=== PATIENT | male | born 1975 | race Caucasian/White ===

== ENCOUNTER 2019-07-10 18:21 | Inpatient (IN) | payer OTHER ==
[~2019-07-10] VITALS: Ht 185.4 cm; Wt 143.0 kg
[2019-07-10 19:52] LABS: BASOPHILS ABSOLUTE AUTO 0.04 K/mm3 (0.00-0.23); BASOPHILS PERCENT AUTO 0 % (0-2); EOSINOPHILS ABSOLUTE AUTO 0.01 K/mm3 (0.00-0.68); EOSINOPHILS PERCENT AUTO 0 % (0-6); Hematocrit 34.6 % (37.0-53.0); IMMATURE GRAN PERCENT AUTO 1 % (0-1); LYMPHOCYTES ABSOLUTE AUTO 0.22 K/mm3 (0.84-5.20); LYMPHOCYTES PERCENT AUTO 2 % (21-46); MONOCYTES ABSOLUTE AUTO 0.92 K/mm3 (0.16-1.47); MONOCYTES PERCENT AUTO 7 % (4-13); Mean Corpuscular HGB 35.5 pg (26.0-34.0); Mean Corpuscular HGB Conc 34.7 g/dL (31.5-36.5); Mean Corpuscular Volume 102 fL (80-100); NEUTROPHILS ABSOLUTE AUTO 11.38 K/mm3 (1.96-9.15); NEUTROPHILS PERCENT AUTO 90 % (41-73); NRBC ABSOLUTE 0.02 K/mm3 (0.00-0.02); NRBC Auto 0.2 /100 WBC (0.0-0.2); RDW Coefficient Variation 18.8 % (11.7-14.2); RDW Standard Deviation 70.6 fL (35.1-46.3); Red Blood Cell Count 3.38 M/mm3 (4.30-5.90); White Blood Cell Count 12.67 K/mm3 (4.00-11.30)
[2019-07-10 20:07] LABS: Mean Platelet Volume 12.1 fL (9.1-12.4); Platelet Count 81 K/mm3 (150-400)
[2019-07-10 20:20] LABS: Alanine Aminotransfer (ALT/SGP 57 U/L (12-78); Albumin, Blood 2.4 g/dL (3.4-5.0); Albumin/Globulin Ratio 0.5 (0.8-1.8); Alk Phos 151 U/L (50-136); Anion Gap 7 mmol/L (6-16); Aspartate Aminotrans (AST/SGOT 143 U/L (12-37); Blood Urea Nitrogen 16 mg/dL (8-24); Bun/Creatinine Ratio 25.3 (12.0-20.0); CO2, Blood 24 mmol/L (21-32); Calcium, Blood 8.1 mg/dL (8.5-10.1); Chloride, Blood 93 mmol/L (98-108); Creatinine, Blood 0.63 mg/dL (0.60-1.20); Globulin, Blood 4.4 g/dL (2.2-4.0); Glomerular Filtration Rate >60 (60-); Glucose, Blood 116 mg/dL (70-99); Potassium, Blood 4.4 mmol/L (3.5-5.5); Sodium, Blood 124 mmol/L (136-145); Total Protein, Blood 6.8 g/dL (6.4-8.2); Troponin I <0.015 ng/mL (0.000-0.040)
[2019-07-10 20:26] LABS: Source, Urine Voided
[2019-07-10 20:29] LABS: International Normalized Ratio 2.11; Prothrombin Time Results 20.9 Sec (9.7-11.5)
[2019-07-10 20:39] LABS: Appearance, Urine Cloudy (Clear); Blood, Urine 4+ (Neg); Glucose Qualitative, Urine Neg (Neg); Ketones, Urine 1+ (Neg); Leukocyte Esterase, Urine Neg (Neg); Nitrite, Urine Neg (Neg); Protein, Urine 3+ (Neg); Urobilinogen, Urine 4+ (Normal)
[2019-07-10 20:53] LABS: Bilirubin, Urine 3+ (Neg); Color, Urine Brown (P-Yellow)
[2019-07-10 20:57] LABS: U Amphetamine Screen Not Detected; U Barbituate Screen Not Detected; U Benzodiazapine Screen Not Detected; U Buprenorphine Screen Not Detected; U Cannabinoids Screen Not Detected; U Cocaine Screen Not Detected; U Methadone Screen Not Detected; U Methamphetamine Screen DETECTED; U Opiates Screen Not Detected; U Oxycodone Screen Not Detected; U Phencyclidine Screen Not Detected; U Propoxyphene Screen Not Detected
[2019-07-10 20:58] LABS: Bacteria Mod /hpf; Red Blood Cells, Urine 0-2 /hpf (0-2); Squamous Epithelial Cells Few /hpf (Few); White Blood Cells, Urine 0-2 /hpf (0-5)
[2019-07-10 21:01] LABS: Transitional Epithelial Cells Mod /hpf (0-Rare)
[2019-07-10] MEDS ORDERED: ALLEGRA ALLERG180 MG PO (21:47)
[2019-07-10] MEDS ORDERED: OMEPRAZOLE20 MG PO (21:47)
--- NOTE | 2019-07-11 04:00 | NUR ---
MANJU OF ADMIT.JOHN FROM ED . TACHEPN[facility] A FEW STEPS TO BED AND 32 RR. SAT WNL AND LEFT AT 3L . NC. GUARDED DEEPER BREATHS DUE TO ADDED PAIN AT RT RIB AREA AND CHEST S/P FALL AT HOME. PHOTOS TAKEN OF BRUISES. GRUNTING SOUNDS W/ CERTAIN MOVEMENTS. DENIES NAUSEA BUT MOIST COUGHING BRINGS UP THICK SPUTUM AND SOME GAGGING SOUNDS TO EXPECTORATE. SIPS OF H2O AND TOLERATED. REPORTS BEING HUNGRY. SEE WITHDRAWAL ASSESS AND SEE PHOTOS FOR SKIN CONDITION.REPORT TO ERA GALLOWAY AND FURTHER ASSESS FOR PAIN NEEDS.
[2019-07-11 04:56] LABS: BASOPHILS ABSOLUTE AUTO 0.02 K/mm3 (0.00-0.23); BASOPHILS PERCENT AUTO 0 % (0-2); EOSINOPHILS ABSOLUTE AUTO 0.01 K/mm3 (0.00-0.68); EOSINOPHILS PERCENT AUTO 0 % (0-6); Hematocrit 30.2 % (37.0-53.0); Hemoglobin 10.7 g/dL (13.5-17.5); IMMATURE GRAN ABSOLUTE AUTO 0.12 K/mm3 (0.00-0.10); IMMATURE GRAN PERCENT AUTO 1 % (0-1); LYMPHOCYTES ABSOLUTE AUTO 0.22 K/mm3 (0.84-5.20); LYMPHOCYTES PERCENT AUTO 2 % (21-46); MONOCYTES PERCENT AUTO 9 % (4-13); Mean Corpuscular HGB 35.8 pg (26.0-34.0); Mean Corpuscular HGB Conc 35.4 g/dL (31.5-36.5); Mean Corpuscular Volume 101 fL (80-100); NEUTROPHILS ABSOLUTE AUTO 10.79 K/mm3 (1.96-9.15); NEUTROPHILS PERCENT AUTO 88 % (41-73); Platelet Count 78 K/mm3 (150-400); RDW Coefficient Variation 19.1 % (11.7-14.2); RDW Standard Deviation 70.7 fL (35.1-46.3); Red Blood Cell Count 2.99 M/mm3 (4.30-5.90); White Blood Cell Count 12.26 K/mm3 (4.00-11.30)
[2019-07-11 05:07] LABS: International Normalized Ratio 2.19; Prothrombin Time Results 21.6 Sec (9.7-11.5)
[2019-07-11 05:42] LABS: Alanine Aminotransfer (ALT/SGP 50 U/L (12-78); Albumin, Blood 2.3 g/dL (3.4-5.0); Albumin/Globulin Ratio 0.6 (0.8-1.8); Alk Phos 130 U/L (50-136); Anion Gap 10 mmol/L (6-16); Aspartate Aminotrans (AST/SGOT 113 U/L (12-37); Bilirubin, Total 33.5 mg/dL (0.1-1.0); Blood Urea Nitrogen 18 mg/dL (8-24); Bun/Creatinine Ratio 30.5 (12.0-20.0); CO2, Blood 23 mmol/L (21-32); Calcium, Blood 7.9 mg/dL (8.5-10.1); Chloride, Blood 94 mmol/L (98-108); Creatinine, Blood 0.59 mg/dL (0.60-1.20); Globulin, Blood 3.8 g/dL (2.2-4.0); Glomerular Filtration Rate >60 (60-); Glucose, Blood 105 mg/dL (70-99); Potassium, Blood 4.1 mmol/L (3.5-5.5); Sodium, Blood 127 mmol/L (136-145); Total Protein, Blood 6.1 g/dL (6.4-8.2)
--- NOTE | 2019-07-11 08:44 | NUR ---
ASSUMED CARE ASSUMED CARE OF PT APPROX. 0330. PT A&OX4. PT VITAL SIGNS STABLE. ASSESSMENT COMPLETED. PT HAS BRUISING ON ARMS, LEGS AND SIDES. HE REPROTS THIS TO BE FROM A FALL. PT ABDOMEN DISTENTED AND FIRM. SKIN JAUNDICE T/O BODY. BEGAN MONITORING VITAL SIGNS AND CIWA PER ORDERS. CIWA RANGING FROM 2-7. WILL CONTINUE TO MONITOR. PT CONTINUES TO BE TACHYPNEANIC BUT IMPROVED SINCE ARRIVAL PT REPORT OF PREVIOUS NURSE. BED IN LOW POSOTION, BED ALARM ON, CALL LIGHT IN REACH AND PT DENIES ANY NEEDS.
--- NOTE | 2019-07-11 12:42 | NUR ---
NEW 18G TO LEFT WRIST STARTED FOR PRIMARY RN. IV FLUSHES. IVF NOW INFUSING TO THIS IV. 20G TO RIGHT AC FLUSHED AND CLAMPED. PT EXPRESSES NO NEEDS/CONCERNS. CALL LIGHT IN REACH. PRIMARY RN AWARE.
--- NOTE | 2019-07-11 15:39 | NUR ---
Spiritual care visit conducted. Patient is lying in bed and alert. Patient tells me that he is in the hospital for a fall in which he broke his ribs and then it was discovered that he has pneumonia. Patient avoids answering questions about further health issues and except to say that he has bruising from the fall. Patient states that he was brought up Pentecostalism but has no connection to druze currently. 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 Patient says he has bear and [place] tags for this year. I encourage self-care and provide companionship and empathic listening. I will continue to remain available to patient and family.
--- NOTE | 2019-07-11 17:02 | NUR ---
SHIFT SUMMARY PT PLEASANT, COOPERATIVE AND USES CALL LIGHT APPROPRIATELY. PT REMAINS A&OX4. VITAL SIGNS REMAIN STABLE. PT ASSESSMENT FINDINGS REMAINS UNCHANGED. PT HAD INTERMITENT NAUSEA. PT CONTINUES TO BE JAUNIDICED T/O. PT ABLETO SIT AT SIDE OF BED INTERMITTENLTY. CIWA RANGED FROM 2-7 T/O THE SHIFT. PT CONTINUES TO HAVE N.S. RUNNING. PT ABLE TO EAT AT EACH MEAL. PT ABLE TO SLEEP INTERMITTENTLY. PT IN BED AT THIS TIME. BED IN LOW POSITION, BED ALARM ON, CALL LIGHT IN REACH AND PT DENIES ANY NEEDS. WILL CONTINUE TO MONITOR UNTIL HANDOFF TO NIGHTSHIFT RN.
--- NOTE | 2019-07-11 19:37 | NUR ---
ARRIVAL PT ARRIVED TO UNIT APPROX. 1610 FROM ED VIA [facility]. PT ABLE TO TRANSFER HIMSELF FROM GURNERY TO BED. ORIENTED PT TO ROOM, UNIT AND POLICIES. ADDMISSION PROCESS COMPLETED. ASSESSMENT COMPLETED. VITAL SIGNS STABLE. PT REPORTS FEELINGS SIGHTLY UNSTEADY ON FEET BUT REPORTS THIS TO HIS BASELINE. PT IN BED AT THIS TIME. BED IN LOW POSITION, CALL LIGHT IN REACH AND PT DENIES ANY NEEDS. WILL CONTINUE TO MONITOR UNTIL HANDOFF TO NIGHTSHIFT RN.
[2019-07-12 03:07] LABS: HBSAG SCREEN Negative (Negative); HEP B CORE AB, TOT Negative (Negative); HEP C VIRUS AB 0.2 (0.0-0.9)
[2019-07-12 04:09] LABS: Hematocrit 30.3 % (37.0-53.0); Hemoglobin 10.4 g/dL (13.5-17.5); Mean Corpuscular HGB 35.7 pg (26.0-34.0); Mean Corpuscular HGB Conc 34.3 g/dL (31.5-36.5); RDW Coefficient Variation 18.9 % (11.7-14.2); RDW Standard Deviation 72.4 fL (35.1-46.3); Red Blood Cell Count 2.91 M/mm3 (4.30-5.90); White Blood Cell Count 9.63 K/mm3 (4.00-11.30)
[2019-07-12 04:16] LABS: Mean Corpuscular Volume 104 fL (80-100); Mean Platelet Volume 12.1 fL (9.1-12.4); Platelet Count 72 K/mm3 (150-400)
[2019-07-12 04:43] LABS: Alanine Aminotransfer (ALT/SGP 46 U/L (12-78); Albumin, Blood 2.3 g/dL (3.4-5.0); Albumin/Globulin Ratio 0.6 (0.8-1.8); Alk Phos 138 U/L (50-136); Anion Gap 7 mmol/L (6-16); Aspartate Aminotrans (AST/SGOT 102 U/L (12-37); Blood Urea Nitrogen 20 mg/dL (8-24); Bun/Creatinine Ratio 37.7 (12.0-20.0); CO2, Blood 26 mmol/L (21-32); Calcium, Blood 7.7 mg/dL (8.5-10.1); Chloride, Blood 92 mmol/L (98-108); Creatinine, Blood 0.53 mg/dL (0.60-1.20); Globulin, Blood 3.8 g/dL (2.2-4.0); Glomerular Filtration Rate >60 (60-); Glucose, Blood 96 mg/dL (70-99); Potassium, Blood 4.4 mmol/L (3.5-5.5); Sodium, Blood 125 mmol/L (136-145); Total Protein, Blood 6.1 g/dL (6.4-8.2)
[2019-07-12 04:52] LABS: BAND PERCENT MAN 4 % (0-8); BASOPHILS ABSOLUTE MAN 0.09 K/mm3 (0.00-0.23); BASOPHILS PERCENT MAN 1 % (0-2); EOSINOPHILS ABSOLUTE MAN 0.19 K/mm3 (0.00-0.68); EOSINOPHILS PERCENT MAN 2 % (0-6); LYMPHOCYTES ABSOLUTE MAN 0.96 K/mm3 (0.84-5.20); LYMPHOCYTES PERCENT MAN 10 % (21-46); MONOCYTES ABSOLUTE MAN 0.67 K/mm3 (0.16-1.47); MONOCYTES PERCENT MAN 7 % (4-13); MYELOCYTE ABSOLUTE MAN 0.09 K/mm3 (0.00-0.00); MYELOCYTE PERCENT MAN 1 % (0-0); SEG NEUTROPHILS PERCENT MAN 75 % (41-73); TOTAL CELLS COUNTED 100
[2019-07-12 05:09] LABS: HEP A AB, IGM Indeterminate (Negative); HEP B CORE AB, IGM Negative (Negative)
--- NOTE | 2019-07-12 07:49 | NUR ---
END OF SHIFT SUMMARY PT HAS BEEN ALERT AND ORIENTED. COOPERATIVE WITH STAFF. PT HAS BEEN UP AT BEDSIDE AND LAYING DOWN RESTING INTERMITTENTLY T/O NIGHT. PT VERY JAUNDICED, URINE BLACK AND STAINING URINAL YELLOW. MULTIPLE LARGE BRUISES NOTED IN MULTIPLE LOCATION OF THE BODY, SECONDARY TO A FALL THE PT HAD RESULTING IN RIB FRACTURES. PT HAS REQUIRED MEDICATION FPR THE PAIN FROM THESE FRACTUYRERS AND HAS UTILIZED A HEATING PAD FOR THIS WELL. NO BM THIS SHIFT. CIWAS REMAINED 0 - 1. PT USES CALL LIGHT APPROPRIATELY. REPORT GIVEN TO ONCOMING RN.
[2019-07-12 15:57] LABS: Vancomycin, Trough 18.7 ug/mL (5.0-10.0)
--- NOTE | 2019-07-12 16:26 | NUR ---
Initial Visit: Palliative Care Consult for AD/POLST and Advanced Care Planning. Pt is resting in bed upon arrival. He reports 7/10 pain in his ribs and back. He reports some dyspnea and the oxygen is managing symptoms. He denies anxiety and nausea at this time. Pt's father and mother are present during visit. Engaged in therapeutic discussion regarding advanced care planning. Inquired about Pt's knowledge of diagnosis and prognosis. Pt reports having discussion with Dr Garcia and hospitalist. He states knowing of having a short life expectancy if he does not quit drinking. Educated on the importance of support groups and alcohol cesation programs. Pt reports no intension of programs and states he can quit on his own. He reports his dad quit on his own. Pt reports he has the support of his mother, father, and sibblings. Pt reports no other concerns at this time. Spoke with bedside nurse Marci discussed case prior to visit. Reported Pt's pain after visit. Palliative Care will remain available.
--- NOTE | 2019-07-12 16:44 | NUR ---
PAIN CONTROL HAD TALKED WITH PT ULTIMATE HOOPS REFEREE ABOUT STARTING TO CHANGE FROM FENTAYL TO AN ORAL PAIN PILL PART OF HIS DISHCARGE PROCESS. TALKED WITH DR ELDER WHEN SHE ROUNDED. DR ELDER ORDERED ULTRAM. MEDICATED PT X1 AFTER HIS SHOWER. ULTRAM DID NOT HELP. CALLED DR ELDER. SHE ORDRED CHUCKIE FOR PT. PT RELATED THAT VICODEN WORKS WELL FOR HIM. PT IS USING THE KPAD WELL TO AUGMENT HIS COMFORT. CONTINUE POT.
--- NOTE | 2019-07-13 05:45 | NUR ---
PATIENT SLEEPING WELL INBETWEEN CARE. PATIENT INDEPENDENT IN ROOM. URINE IS DARK ORANGE WITH OILLY FLIM. PATIENT COMPLAINS OF PAIN IN LEF RIBS DUE TO FRACTURES, RECIEVING PRN'S. PATIENT GIVEN SNACKS IN THE EVENING.
[2019-07-13 07:33] LABS: Hematocrit 30.1 % (37.0-53.0); Hemoglobin 10.2 g/dL (13.5-17.5); Mean Corpuscular HGB 34.6 pg (26.0-34.0); Mean Corpuscular HGB Conc 33.9 g/dL (31.5-36.5); Mean Corpuscular Volume 102 fL (80-100); Mean Platelet Volume 11.1 fL (9.1-12.4); NRBC ABSOLUTE 0.03 K/mm3 (0.00-0.02); NRBC Auto 0.4 /100 WBC (0.0-0.2); Platelet Count 90 K/mm3 (150-400); RDW Coefficient Variation 18.7 % (11.7-14.2); RDW Standard Deviation 68.6 fL (35.1-46.3); Red Blood Cell Count 2.95 M/mm3 (4.30-5.90); White Blood Cell Count 7.96 K/mm3 (4.00-11.30)
[2019-07-13 07:56] LABS: BAND PERCENT MAN 5 % (0-8); BASOPHILS ABSOLUTE MAN 0.07 K/mm3 (0.00-0.23); BASOPHILS PERCENT MAN 1 % (0-2); EOSINOPHILS PERCENT MAN 0 % (0-6); LYMPHOCYTES ABSOLUTE MAN 0.39 K/mm3 (0.84-5.20); LYMPHOCYTES PERCENT MAN 5 % (21-46); METAMYELOCYTE ABSOLUTE MAN 0.15 K/mm3 (0.00-0.00); METAMYELOCYTE PERCENT MAN 2 % (0-0); MONOCYTES ABSOLUTE MAN 0.55 K/mm3 (0.16-1.47); MONOCYTES PERCENT MAN 7 % (4-13); MYELOCYTE ABSOLUTE MAN 0.15 K/mm3 (0.00-0.00); MYELOCYTE PERCENT MAN 2 % (0-0); SEG NEUTROPHILS PERCENT MAN 78 % (41-73); TOTAL CELLS COUNTED 100
[2019-07-13 08:09] LABS: Vancomycin, Trough 24.7 ug/mL (5.0-10.0)
[2019-07-13 08:10] LABS: Alanine Aminotransfer (ALT/SGP 53 U/L (12-78); Albumin, Blood 2.2 g/dL (3.4-5.0); Alk Phos 143 U/L (50-136); Anion Gap 6 mmol/L (6-16); Aspartate Aminotrans (AST/SGOT 110 U/L (12-37); Blood Urea Nitrogen 19 mg/dL (8-24); Bun/Creatinine Ratio 32.6 (12.0-20.0); CO2, Blood 25 mmol/L (21-32); Chloride, Blood 94 mmol/L (98-108); Creatinine, Blood 0.58 mg/dL (0.60-1.20); Glomerular Filtration Rate >60 (60-); Glucose, Blood 90 mg/dL (70-99); Potassium, Blood 4.3 mmol/L (3.5-5.5); Sodium, Blood 125 mmol/L (136-145)
[2019-07-13 08:31] LABS: Albumin/Globulin Ratio 0.6 (0.8-1.8); Bilirubin, Total 34.6 mg/dL (0.1-1.0); Globulin, Blood 3.8 g/dL (2.2-4.0)
[2019-07-13 11:45] LABS: Vancomycin, Random 18.6 ug/mL
--- NOTE | 2019-07-13 17:47 | NUR ---
SHIFT SUMMARY PT ALERT AND ORIENTED. VS STABLE. O2 SATS REMAIN ABOVE 90% ON 3L NC. LS COARSE IN THE BASES. PT COMPLAINED OF PAIN THIS AM THAT WAS RELEIVED WITH MEDICATION ADMINISTRATION. PT STILL HAVING DARK TEA COLORED URINE OUTPUT. NS INFUSING PER ORDERS. PT INDEPENDENT IN THE ROOM. REPORT CALLED TO MEDICAL FLOOR RN.
--- NOTE | 2019-07-13 18:50 | NUR ---
PATIENT TRANSFER AT 1822 PATIENT ARRIVED TO MEDICAL FLOOR, ALERT AND ORIENTED. PATIENT HAS PRODUCTIVE COUGH, GIVEN EMESIS BAG FOR SPUTUM. PT ON 3L 02. MAINTANENCE IV FLUID RESTARTED. NORCO GIVEN FOR 6/ 10 L UPPER CHEST PAIN AND GENERALIZED BACK PAIN. ORIENTED TO ROOM AND CALL BUTTON.
[2019-07-14 04:42] LABS: BASOPHILS ABSOLUTE AUTO 0.06 K/mm3 (0.00-0.23); BASOPHILS PERCENT AUTO 1 % (0-2); EOSINOPHILS ABSOLUTE AUTO 0.18 K/mm3 (0.00-0.68); EOSINOPHILS PERCENT AUTO 2 % (0-6); Hematocrit 28.4 % (37.0-53.0); Hemoglobin 9.8 g/dL (13.5-17.5); IMMATURE GRAN ABSOLUTE AUTO 0.54 K/mm3 (0.00-0.10); IMMATURE GRAN PERCENT AUTO 7 % (0-1); LYMPHOCYTES ABSOLUTE AUTO 0.82 K/mm3 (0.84-5.20); LYMPHOCYTES PERCENT AUTO 11 % (21-46); MONOCYTES ABSOLUTE AUTO 1.06 K/mm3 (0.16-1.47); MONOCYTES PERCENT AUTO 14 % (4-13); Mean Corpuscular HGB Conc 34.5 g/dL (31.5-36.5); Mean Corpuscular Volume 101 fL (80-100); Mean Platelet Volume 10.7 fL (9.1-12.4); NEUTROPHILS ABSOLUTE AUTO 4.95 K/mm3 (1.96-9.15); NEUTROPHILS PERCENT AUTO 65 % (41-73); NRBC ABSOLUTE 0.03 K/mm3 (0.00-0.02); NRBC Auto 0.4 /100 WBC (0.0-0.2); Platelet Count 90 K/mm3 (150-400); RDW Coefficient Variation 18.9 % (11.7-14.2); RDW Standard Deviation 70.1 fL (35.1-46.3); White Blood Cell Count 7.61 K/mm3 (4.00-11.30)
[2019-07-14 04:54] LABS: International Normalized Ratio 1.8; Prothrombin Time Results 18.1 Sec (9.7-11.5)
[2019-07-14 05:15] LABS: BAND PERCENT MAN 3 % (0-8); BASOPHILS PERCENT MAN 0 % (0-2); EOSINOPHILS ABSOLUTE MAN 0.07 K/mm3 (0.00-0.68); EOSINOPHILS PERCENT MAN 1 % (0-6); LYMPHOCYTES ABSOLUTE MAN 0.76 K/mm3 (0.84-5.20); LYMPHOCYTES PERCENT MAN 10 % (21-46); METAMYELOCYTE ABSOLUTE MAN 0.22 K/mm3 (0.00-0.00); METAMYELOCYTE PERCENT MAN 3 % (0-0); MONOCYTES ABSOLUTE MAN 0.53 K/mm3 (0.16-1.47); MONOCYTES PERCENT MAN 7 % (4-13); MYELOCYTE ABSOLUTE MAN 0.15 K/mm3 (0.00-0.00); MYELOCYTE PERCENT MAN 2 % (0-0); NEUTROPHILS ABSOLUTE MAN 5.85 K/mm3 (1.96-9.15); SEG NEUTROPHILS PERCENT MAN 74 % (41-73); TOTAL CELLS COUNTED 100
[2019-07-14 05:19] LABS: Alanine Aminotransfer (ALT/SGP 55 U/L (12-78); Albumin, Blood 2.1 g/dL (3.4-5.0); Albumin/Globulin Ratio 0.6 (0.8-1.8); Alk Phos 146 U/L (50-136); Anion Gap 8 mmol/L (6-16); Aspartate Aminotrans (AST/SGOT 116 U/L (12-37); Bilirubin, Total 32.5 mg/dL (0.1-1.0); Blood Urea Nitrogen 17 mg/dL (8-24); Bun/Creatinine Ratio 27.2 (12.0-20.0); CO2, Blood 24 mmol/L (21-32); Chloride, Blood 95 mmol/L (98-108); Creatinine, Blood 0.63 mg/dL (0.60-1.20); Globulin, Blood 3.6 g/dL (2.2-4.0); Glomerular Filtration Rate >60 (60-); Glucose, Blood 85 mg/dL (70-99); Potassium, Blood 4.3 mmol/L (3.5-5.5); Sodium, Blood 127 mmol/L (136-145); Total Protein, Blood 5.7 g/dL (6.4-8.2)
--- NOTE | 2019-07-14 05:59 | NUR ---
SHIFT SUMMARY A/O, ABLE TO MAKE NEEDS KNOWN. COOPERATIVE WITH CARE. CALLS AND ANSWERS QUESTIONS APPROPRIATELY. C/O PAIN X1; MEDICATED PER EMAR. DID NOT APPEAR TO REST MUCH T/O SHIFT. VOIDS IN URINAL AT SIDE OF BED. IV ABX INFUSIONS COMPLETED WITHOUT COMPLICATIONS. VSS/AFEBRILE. NO ACUTE CHANGES NOTED OVERNIGHT. WCTM. BED IN LOWEST POSITION. CALL LIGHT AND BELONGINGS WITHIN REACH. REPORT TO ONCOMING RN.
[2019-07-14 11:25] LABS: Vancomycin, Trough 18.5 ug/mL (5.0-10.0)
--- NOTE | 2019-07-14 18:36 | NUR ---
SHIFT SUMAMRY: NO ACUTE EVENTS TO REPORT THIS SHIFT. PT A&O; CALM AND COOPERATIVE WITH CARE. MEDICATED FOR PAIN PER EMAR. PT USES URINAL AT BEDSIDE. IV ABX COMPLETE; PATIENT STARTED ON PO ABX. NO S/SX OF ETOH WITHDRAWL. WCTM.
[2019-07-15 05:10] LABS: BASOPHILS ABSOLUTE AUTO 0.14 K/mm3 (0.00-0.23); BASOPHILS PERCENT AUTO 2 % (0-2); EOSINOPHILS ABSOLUTE AUTO 0.23 K/mm3 (0.00-0.68); EOSINOPHILS PERCENT AUTO 3 % (0-6); Hematocrit 29.5 % (37.0-53.0); Hemoglobin 10.1 g/dL (13.5-17.5); IMMATURE GRAN ABSOLUTE AUTO 0.48 K/mm3 (0.00-0.10); IMMATURE GRAN PERCENT AUTO 5 % (0-1); LYMPHOCYTES ABSOLUTE AUTO 0.82 K/mm3 (0.84-5.20); LYMPHOCYTES PERCENT AUTO 9 % (21-46); MONOCYTES ABSOLUTE AUTO 1.22 K/mm3 (0.16-1.47); MONOCYTES PERCENT AUTO 13 % (4-13); Mean Corpuscular HGB 35.2 pg (26.0-34.0); Mean Corpuscular HGB Conc 34.2 g/dL (31.5-36.5); Mean Corpuscular Volume 103 fL (80-100); Mean Platelet Volume 10.5 fL (9.1-12.4); NEUTROPHILS ABSOLUTE AUTO 6.25 K/mm3 (1.96-9.15); NEUTROPHILS PERCENT AUTO 68 % (41-73); NRBC ABSOLUTE 0.04 K/mm3 (0.00-0.02); NRBC Auto 0.4 /100 WBC (0.0-0.2); Platelet Count 82 K/mm3 (150-400); RDW Coefficient Variation 19.4 % (11.7-14.2); RDW Standard Deviation 72.2 fL (35.1-46.3); Red Blood Cell Count 2.87 M/mm3 (4.30-5.90); White Blood Cell Count 9.14 K/mm3 (4.00-11.30)
[2019-07-15 05:21] LABS: International Normalized Ratio 1.88; Prothrombin Time Results 18.8 Sec (9.7-11.5)
[2019-07-15 05:49] LABS: Alanine Aminotransfer (ALT/SGP 64 U/L (12-78); Albumin/Globulin Ratio 0.5 (0.8-1.8); Alk Phos 150 U/L (50-136); Anion Gap 6 mmol/L (6-16); Aspartate Aminotrans (AST/SGOT 121 U/L (12-37); Bilirubin, Total 31.1 mg/dL (0.1-1.0); Blood Urea Nitrogen 15 mg/dL (8-24); Bun/Creatinine Ratio 25.2 (12.0-20.0); CO2, Blood 25 mmol/L (21-32); Calcium, Blood 7.9 mg/dL (8.5-10.1); Chloride, Blood 96 mmol/L (98-108); Globulin, Blood 3.9 g/dL (2.2-4.0); Glomerular Filtration Rate >60 (60-); Glucose, Blood 97 mg/dL (70-99); Potassium, Blood 3.9 mmol/L (3.5-5.5); Sodium, Blood 127 mmol/L (136-145); Total Protein, Blood 5.9 g/dL (6.4-8.2)
--- NOTE | 2019-07-15 06:27 | NUR ---
SHIFT SUMMARY PATIENT LEFT HAND IV BECAME DISLODGED, CAUSING HAND TO BECOME SLIGHTLY EDEMATOUS. REMOVED IV AND SWITCHED IV FLUIDS TO RIGHT ARM. PATEINT COMPLAINED OF LEFT RIB AND FLANK PAIN, ONLY REQUIRED 1 DOSE OF PO PAIN MEDIATION (SEE EMAR). PATIENT COOPERATIVE AND PLEASANT. SEVER ABD DISTENTION. WILL CONTINUE TO MONITOR AND REPORT TO ONCOMING RN.
--- NOTE | 2019-07-15 10:55 | NUR ---
PATIENT TO DISCHARGE HOME. IV REMOVED NO SS OF INFECTION NOTED. NURSE WENT OVER DISCHARGE INSTRUCTIONS WITH PATIENT. PATIENT TO FOLLOW UP WITH DOC IN JULY. PATIENT EDCUATED REGARDING HIS DM1. FAMILY CALLED TO [facility].
--- NOTE | 2019-07-15 18:07 | NUR ---
PATIENT HAS COMPLAINED OF PAIN TO RIBS AND L SIDE . MEDICATION GIVEN PER EMAR. HE HAS SPENT THE SHIFT IN BED, IS COMPLIANT WITH CARES AND FRIENDLY WITH STAFF. NO ACUTE CHANGES NOTED THIS SHIFT.
[2019-07-16 05:10] LABS: BASOPHILS PERCENT AUTO 1 % (0-2); EOSINOPHILS ABSOLUTE AUTO 0.25 K/mm3 (0.00-0.68); EOSINOPHILS PERCENT AUTO 3 % (0-6); Hematocrit 30.4 % (37.0-53.0); Hemoglobin 10.6 g/dL (13.5-17.5); IMMATURE GRAN PERCENT AUTO 5 % (0-1); LYMPHOCYTES ABSOLUTE AUTO 0.83 K/mm3 (0.84-5.20); LYMPHOCYTES PERCENT AUTO 8 % (21-46); MONOCYTES ABSOLUTE AUTO 0.79 K/mm3 (0.16-1.47); MONOCYTES PERCENT AUTO 8 % (4-13); Mean Corpuscular HGB 36.4 pg (26.0-34.0); Mean Corpuscular HGB Conc 34.9 g/dL (31.5-36.5); Mean Corpuscular Volume 105 fL (80-100); Mean Platelet Volume 11.7 fL (9.1-12.4); NEUTROPHILS ABSOLUTE AUTO 7.69 K/mm3 (1.96-9.15); NEUTROPHILS PERCENT AUTO 76 % (41-73); NRBC ABSOLUTE 0.04 K/mm3 (0.00-0.02); NRBC Auto 0.4 /100 WBC (0.0-0.2); Platelet Count 72 K/mm3 (150-400); RDW Coefficient Variation 19.7 % (11.7-14.2); RDW Standard Deviation 75.2 fL (35.1-46.3); Red Blood Cell Count 2.91 M/mm3 (4.30-5.90); White Blood Cell Count 10.16 K/mm3 (4.00-11.30)
[2019-07-16 05:13] LABS: International Normalized Ratio 1.85; Prothrombin Time Results 18.5 Sec (9.7-11.5)
[2019-07-16 05:18] LABS: BAND PERCENT MAN 3 % (0-8); BASOPHILS PERCENT MAN 0 % (0-2); EOSINOPHILS PERCENT MAN 2 % (0-6); LYMPHOCYTES PERCENT MAN 4 % (21-46); METAMYELOCYTE PERCENT MAN 2 % (0-0); MONOCYTES PERCENT MAN 4 % (4-13); NEUTROPHILS ABSOLUTE MAN 8.94 K/mm3 (1.96-9.15); SEG NEUTROPHILS PERCENT MAN 85 % (41-73); TOTAL CELLS COUNTED 100
[2019-07-16 05:24] LABS: Alanine Aminotransfer (ALT/SGP 72 U/L (12-78); Albumin, Blood 2.1 g/dL (3.4-5.0); Albumin/Globulin Ratio 0.5 (0.8-1.8); Alk Phos 168 U/L (50-136); Anion Gap 6 mmol/L (6-16); Aspartate Aminotrans (AST/SGOT 125 U/L (12-37); Blood Urea Nitrogen 13 mg/dL (8-24); Bun/Creatinine Ratio 19.5 (12.0-20.0); CO2, Blood 27 mmol/L (21-32); Calcium, Blood 8.1 mg/dL (8.5-10.1); Chloride, Blood 96 mmol/L (98-108); Creatinine, Blood 0.67 mg/dL (0.60-1.20); Globulin, Blood 4.2 g/dL (2.2-4.0); Glomerular Filtration Rate >60 (60-); Glucose, Blood 117 mg/dL (70-99); Sodium, Blood 129 mmol/L (136-145); Total Protein, Blood 6.3 g/dL (6.4-8.2)
[2019-07-16 05:29] LABS: Bilirubin, Total 29.1 mg/dL (0.1-1.0)
--- NOTE | 2019-07-16 05:33 | NUR ---
SHIFT SUMMARY A/O, ABLE TO MAKE NEEDS KNOWN. COOPERATIVE WITH CARE. CALLS AND ANSWERS QUESTIONS APPROPRIATELY. C/O PAIN/DISCOMFORT TO L CHEST/BACK/RIBS; MEDICATED PER EMAR. APPEARED TO REST OFF AND ON T/O SHIFT. NO ACUTE CHANGES OVERNIGHT. VSS/AFEBRILE. WCTM. BED REMAINS IN LOWEST POSITION. CALL LIGHT AND BELONGINGS WITHIN REACH. REPORT TO ONCOMING RN.
--- NOTE | 2019-07-16 12:28 | NUR ---
DISCHARGE SUMMARY CRISTIAN IS LEAVING BY CAR WITH HIS . NO NEW PRESCRIPTIONS. I MADE AN APPOINTMENT WITH THE CONTOUR PATH TAPE MILL OPERATOR FOR JUL 31 AT 1:45 FOR FOLLOW UP, BUT HE PREFERRED TO MAKE HIS OWN PCP APPOINTMENT. PIV REMOVED, TELE REMOVED, PAPERWORK GONE OVER WITH HIM. DENIES CHEST PAIN TODAY. GOT TYENOL FOR HEADACHE WHICH WORKED WELL. HAD ECHO AND ABD U/S AND STAT CT TO R/O PE TODAY. WCTM
--- NOTE | 2019-07-16 18:48 | NUR ---
SHIFT SUMMARY CRISTIAN COMPLAINED OF PAIN AND GOT NORCO AND TRAMADOL FOR RIB PAIN. COUGHING UP SPUTUM, ENCOURAGING INCENTIVE SPIROMETER USE. ON 2L OXYGEN, SATS IN LOW 90S. BLE EDEMA, PT STATES HE DRINKS 8 OF THE LARGEST SIZE OF STYROFOAM CUPS DAILY. DISCUSSED HIS HYPONATREMIA AND CREATININE WITH DR WAN, SHE WANTS HIM TO SLOW DOWN ON FLUID, I EDUCATED PT ON THIS. VENOUS DUPLEX NEGATIVE FOR DVT. TELE AND MIVF DC'D. PT INDEP TO BR. TOOK MEDS PRSECRBIED. CALL LIGHT IN REACH, WTM
[2019-07-17 04:33] LABS: BASOPHILS ABSOLUTE AUTO 0.09 K/mm3 (0.00-0.23); BASOPHILS PERCENT AUTO 1 % (0-2); EOSINOPHILS ABSOLUTE AUTO 0.25 K/mm3 (0.00-0.68); EOSINOPHILS PERCENT AUTO 2 % (0-6); Hematocrit 29.5 % (37.0-53.0); Hemoglobin 10.2 g/dL (13.5-17.5); IMMATURE GRAN ABSOLUTE AUTO 0.44 K/mm3 (0.00-0.10); IMMATURE GRAN PERCENT AUTO 4 % (0-1); LYMPHOCYTES ABSOLUTE AUTO 0.82 K/mm3 (0.84-5.20); LYMPHOCYTES PERCENT AUTO 8 % (21-46); MONOCYTES ABSOLUTE AUTO 0.97 K/mm3 (0.16-1.47); MONOCYTES PERCENT AUTO 9 % (4-13); Mean Corpuscular HGB 35.9 pg (26.0-34.0); Mean Corpuscular HGB Conc 34.6 g/dL (31.5-36.5); Mean Corpuscular Volume 104 fL (80-100); Mean Platelet Volume 11.4 fL (9.1-12.4); NEUTROPHILS ABSOLUTE AUTO 7.73 K/mm3 (1.96-9.15); NEUTROPHILS PERCENT AUTO 75 % (41-73); Platelet Count 68 K/mm3 (150-400); RDW Coefficient Variation 19.8 % (11.7-14.2); Red Blood Cell Count 2.84 M/mm3 (4.30-5.90)
[2019-07-17 04:54] LABS: Alanine Aminotransfer (ALT/SGP 73 U/L (12-78); Albumin/Globulin Ratio 0.5 (0.8-1.8); Alk Phos 164 U/L (50-136); Anion Gap 6 mmol/L (6-16); Aspartate Aminotrans (AST/SGOT 118 U/L (12-37); Blood Urea Nitrogen 14 mg/dL (8-24); Bun/Creatinine Ratio 17.8 (12.0-20.0); CO2, Blood 29 mmol/L (21-32); Calcium, Blood 8.1 mg/dL (8.5-10.1); Chloride, Blood 93 mmol/L (98-108); Creatinine, Blood 0.79 mg/dL (0.60-1.20); Globulin, Blood 4.1 g/dL (2.2-4.0); Glomerular Filtration Rate >60 (60-); Glucose, Blood 96 mg/dL (70-99); Potassium, Blood 3.6 mmol/L (3.5-5.5); Sodium, Blood 128 mmol/L (136-145); Total Protein, Blood 6.1 g/dL (6.4-8.2)
--- NOTE | 2019-07-17 05:14 | NUR ---
SALVAGE WORKER SUMMARY NO ACUTE CHANGES THIS SHIFT. PT AAOX4 AND PLEASANT. PT HAD A GOOD NIGHT AND WAS ABLE TO REST. ONLY COMPLAINT WAS PAIN ON HIS L SIDE FROM FALL PRIOR TO ADMIT. GIVEN NORCO WHICH ALLOWED PT TO SLEEP. PT STILL VERY JAUNDICED. VSS, WILL CONTINUE TO MONITOR.
[2019-07-17 05:15] LABS: Bilirubin, Total 26.4 mg/dL (0.1-1.0)
--- NOTE | 2019-07-17 17:48 | NUR ---
SHIFT SUMMARY NO ACUTE CHANGES. PATIENT MEDICATED X2 FOR PAIN THIS SHIFT. DENIES NAUSEA AND SHORTNESS OF BREATH. TWO LITERS / NEEDED. PATIENT UP INDEPENDENT IN THE ROOM. PATIENT REPORTS FEELING LESS SWOLLEN IN HIS LEGS. DR. MCMAHON CONSULTED ON PATIENT TODAY. CALL LIGHT IN REACH.
--- NOTE | 2019-07-18 05:31 | NUR ---
SHIFT SUMMARY: A/O. VSS. Communicates needs. Requested norco x 1 tonight for left rib and shoulder pain- states helpufl. Continues with +4 edema to bilateral LE from toes to upper thighs. Ascites. 02 sats 94-96% on 1.5L via NC. Cont with occasional productive cough- yellow sputum. Encouraged TCDB. Voiding frequently. Urine dark in color. Jaundiced skin and yellow sclera. No acute changes during noc. Call button within reach.
[2019-07-18 15:23] LABS: Automated BF WBC Count 0.148 K/mm3 (0-999); Body Fluid WBC Count 148 /mm3 (0-999)
[2019-07-18 15:40] LABS: Albumin, Body Fluid 0.2 g/dL; Protein, Body Fluid 0.6 g/dL
[2019-07-18 16:14] LABS: RBC Count, Body Fluid 252 /mm3 (0-0)
[2019-07-18 16:37] LABS: Total Cell Count, Body Fluid 100
[2019-07-18 16:38] LABS: Appearance, Body Fluid Clear (Clear)
--- NOTE | 2019-07-18 19:19 | NUR ---
SHIFT SUMMARY NO ACUTE CHANGES. PATIENT MEDICATED X 2 FOR PAIN THIS SHIFT. PATIENT HAD HOME 02 EVAL TODAY, NO SUPPLEMENTAL OXYGEN NEEDED. PATIENT HAD PARACENTESIS TODAY. SMALL AMOUNT OF BLEEDING AT ASPIRATION SITE WHEN PATIETN RETURNED TO ROOM. PRESSURE BANDAGE APPLIED, BLEEDING RESOLVED. BANDAGE CHANGED OUT FOR SMALL BANDAID. CALL LIGHT IN REACH.
--- NOTE | 2019-07-19 04:39 | NUR ---
SHIFT SUMMARY: 44 Y/O OBESE MALE RESTED COMFORTABLY ALL SHIFT, C/O LEFT RIB PAIN RATED 6/10 WITH NORCO 5/325MG PO GIVEN WITH RELIEF FELT, LEFT FLANK, SHOULDER BRUISED, ENTIRE BODY AND SCLERA JAUNDICED, HAPPY AND COOPERATIVE, BED LOW POSITION, CALL LIGHT AT SIDE.
[2019-07-19 05:08] LABS: International Normalized Ratio 1.93; Prothrombin Time Results 19.3 Sec (9.7-11.5)
[2019-07-19 05:29] LABS: Alanine Aminotransfer (ALT/SGP 68 U/L (12-78); Albumin, Blood 1.9 g/dL (3.4-5.0); Albumin/Globulin Ratio 0.5 (0.8-1.8); Alk Phos 165 U/L (50-136); Anion Gap 8 mmol/L (6-16); Aspartate Aminotrans (AST/SGOT 110 U/L (12-37); Bilirubin, Total 21.3 mg/dL (0.1-1.0); Blood Urea Nitrogen 16 mg/dL (8-24); Bun/Creatinine Ratio 20.4 (12.0-20.0); CO2, Blood 29 mmol/L (21-32); Calcium, Blood 7.7 mg/dL (8.5-10.1); Chloride, Blood 92 mmol/L (98-108); Creatinine, Blood 0.78 mg/dL (0.60-1.20); Globulin, Blood 4.2 g/dL (2.2-4.0); Glomerular Filtration Rate >60 (60-); Glucose, Blood 118 mg/dL (70-99); Sodium, Blood 129 mmol/L (136-145); Total Protein, Blood 6.1 g/dL (6.4-8.2)
[2019-07-19] MEDS ORDERED: TRAM50 PO (16:22)
[2019-07-19] MEDS ORDERED: Aldactone100 MG PO (16:23)
[2019-07-19] MEDS ORDERED: B-1100 MG PO (16:23)
[2019-07-19] MEDS ORDERED: LEVO750 PO (16:24)
[2019-07-19] MEDS ORDERED: FURO40 PO (16:25)
[2019-07-19] MEDS ORDERED: ALBU90OI INH (16:26)
--- NOTE | 2019-07-19 17:28 | NUR ---
DISCHARGE DISCHARGE INSTRUCTIONS, FOLLOW UP APPOINTMENTS AND MEDICATIONS LIST REVIEWED WITH PT. QUESTIONS/CONCERNS ANSWERED. HARD COPY SCRIP FOR TRAMMADOL GIVEN TO PT, OTHER NEW MEDS FAXED TO [facility] IN [place] PER PT PREFERENCE. ESCORTED OUT VIA W/C BY [facility]
== END 2019-07-19 17:26 | disposition home or self-care (01) | DRG 871 ==
LOC: ER 18:21 → ERHOLD 23:24 → ER 07-11 01:08 → MEDS 07-11 01:08 → PCU 07-11 01:08 → ERHOLD 07-11 01:26 → PCU 07-11 01:26 → MEDS 07-13 18:18
PROVIDERS: Emergency Medicine; Family Medicine; Internal Medicine; Internal Medicine Gastroenterology; Nurse Practitioner Acute Care; Pharmacist; Physician Assistant; ADMIT Hospitalist
PROC: 0W9G30Z Drainage of Peritoneal Cavity with Drainage Device, Percutaneous Approach (ICD-10-PCS; principal; 2019-07-18)
DX: A41.01 Sepsis due to Methicillin susceptible Staphylococcus aureus (principal); J96.01 Acute respiratory failure with hypoxia; J15.211 Pneumonia due to Methicillin susceptible Staphylococcus aureus; S22.42XA Multiple fractures of ribs, left side, initial encounter for closed fracture; E87.1 Hypo-osmolality and hyponatremia; J98.11 Atelectasis; K76.6 Portal hypertension; K72.90 Hepatic failure, unspecified without coma; E87.8 Other disorders of electrolyte and fluid balance, not elsewhere classified; D69.6 Thrombocytopenia, unspecified; K21.9 Gastro-esophageal reflux disease without esophagitis; W17.2XXA Fall into hole, initial encounter; Y93.9 Activity, unspecified; Y92.9 Unspecified place or not applicable; E66.9 Obesity, unspecified; Z68.39 Body mass index [BMI] 39.0-39.9, adult; K70.31 Alcoholic cirrhosis of liver with ascites; D64.9 Anemia, unspecified; K59.00 Constipation, unspecified; F10.20 Alcohol dependence, uncomplicated; Y90.0 Blood alcohol level of less than 20 mg/100 ml
CPT/HCPCS: 36415; 49083; 70450; 71046; 71260; 74177; 80053; 80202; 81001; 82042; 82140; 83605; 83615; 83690; 83735; 84145; 84157; 84484; 85025; 85610; 86317; 86704; 86705; 86708; 86709; 86803; 87040; 87070; 87077; 87086; 87186; 87205; 87340; 89051; 93005; 93010; 93306; 93970; 94640; 94760; 94761; 94762; 96361; 96365-59; 96367; 99285-25; A9270-GY; C9113; G0480; J0696; J1940; J2405; J2543; J3010; J3370; J7030; J7050; P9046; Q9967

== ENCOUNTER 2019-07-25 08:08 | Emergency (ER) | payer OTHER ==
[~2019-07-25] VITALS: Ht 182.9 cm; Wt 127.0 kg
[~2019-07-25 08:08] MED LIST: ALBU90OI INH; ALLEGRA ALLERG180 MG PO; Aldactone100 MG PO; B-1100 MG PO; FURO40 PO; LEVO750 PO; OMEPRAZOLE20 MG PO; TRAM50 PO
[2019-07-25 09:02] LABS: BASOPHILS ABSOLUTE AUTO 0.09 K/mm3 (0.00-0.23); BASOPHILS PERCENT AUTO 1 % (0-2); EOSINOPHILS ABSOLUTE AUTO 0.35 K/mm3 (0.00-0.68); EOSINOPHILS PERCENT AUTO 4 % (0-6); Hematocrit 30.6 % (37.0-53.0); Hemoglobin 10.6 g/dL (13.5-17.5); IMMATURE GRAN ABSOLUTE AUTO 0.09 K/mm3 (0.00-0.10); IMMATURE GRAN PERCENT AUTO 1 % (0-1); LYMPHOCYTES ABSOLUTE AUTO 0.92 K/mm3 (0.84-5.20); LYMPHOCYTES PERCENT AUTO 9 % (21-46); MONOCYTES ABSOLUTE AUTO 0.96 K/mm3 (0.16-1.47); MONOCYTES PERCENT AUTO 10 % (4-13); Mean Corpuscular HGB 36.8 pg (26.0-34.0); Mean Corpuscular HGB Conc 34.6 g/dL (31.5-36.5); Mean Corpuscular Volume 106 fL (80-100); Mean Platelet Volume 10.9 fL (9.1-12.4); NEUTROPHILS PERCENT AUTO 76 % (41-73); Platelet Count 100 K/mm3 (150-400); RDW Coefficient Variation 18.8 % (11.7-14.2); RDW Standard Deviation 73.6 fL (35.1-46.3); Red Blood Cell Count 2.88 M/mm3 (4.30-5.90); White Blood Cell Count 10.01 K/mm3 (4.00-11.30)
[2019-07-25 09:18] LABS: Alanine Aminotransfer (ALT/SGP 85 U/L (12-78); Albumin, Blood 2.1 g/dL (3.4-5.0); Albumin/Globulin Ratio 0.5 (0.8-1.8); Alk Phos 194 U/L (50-136); Anion Gap 8 mmol/L (6-16); Aspartate Aminotrans (AST/SGOT 161 U/L (12-37); Bilirubin, Total 15.7 mg/dL (0.1-1.0); Blood Urea Nitrogen 17 mg/dL (8-24); Bun/Creatinine Ratio 20.7 (12.0-20.0); CO2, Blood 29 mmol/L (21-32); Calcium, Blood 7.8 mg/dL (8.5-10.1); Chloride, Blood 90 mmol/L (98-108); Creatinine, Blood 0.82 mg/dL (0.60-1.20); Globulin, Blood 4.3 g/dL (2.2-4.0); Glomerular Filtration Rate >60 (60-); Glucose, Blood 116 mg/dL (70-99); Potassium, Blood 3.6 mmol/L (3.5-5.5); Sodium, Blood 127 mmol/L (136-145); Total Protein, Blood 6.4 g/dL (6.4-8.2)
[2019-07-25] MEDS ORDERED: Aldactone50 MG PO (10:34)
== END 2019-07-25 10:55 | disposition home or self-care (01) ==
LOC: ER 08:08
PROVIDERS: Emergency Medicine
DX: K70.30 Alcoholic cirrhosis of liver without ascites (principal); R60.0 Localized edema; Z79.899 Other long term (current) drug therapy
CPT/HCPCS: 36415; 80053; 85025; 93005; 93010; 99284-25

== ENCOUNTER 2019-08-01 09:32 | Inpatient (IN) | payer OTHER ==
[~2019-08-01] VITALS: Ht 185.4 cm; Wt 150.4 kg
[~2019-08-01 09:32] MED LIST changes: +Aldactone50 MG PO
[2019-08-01 10:34] LABS: BASOPHILS ABSOLUTE AUTO 0.11 K/mm3 (0.00-0.23); BASOPHILS PERCENT AUTO 1 % (0-2); EOSINOPHILS ABSOLUTE AUTO 0.37 K/mm3 (0.00-0.68); EOSINOPHILS PERCENT AUTO 4 % (0-6); Hematocrit 29.5 % (37.0-53.0); IMMATURE GRAN ABSOLUTE AUTO 0.11 K/mm3 (0.00-0.10); IMMATURE GRAN PERCENT AUTO 1 % (0-1); LYMPHOCYTES ABSOLUTE AUTO 0.71 K/mm3 (0.84-5.20); LYMPHOCYTES PERCENT AUTO 8 % (21-46); MONOCYTES ABSOLUTE AUTO 1.01 K/mm3 (0.16-1.47); MONOCYTES PERCENT AUTO 11 % (4-13); Mean Corpuscular HGB 36.2 pg (26.0-34.0); Mean Corpuscular HGB Conc 33.9 g/dL (31.5-36.5); Mean Corpuscular Volume 107 fL (80-100); Mean Platelet Volume 10.1 fL (9.1-12.4); NEUTROPHILS ABSOLUTE AUTO 6.91 K/mm3 (1.96-9.15); NEUTROPHILS PERCENT AUTO 75 % (41-73); Platelet Count 89 K/mm3 (150-400); RDW Coefficient Variation 17.6 % (11.7-14.2); RDW Standard Deviation 68.9 fL (35.1-46.3); Red Blood Cell Count 2.76 M/mm3 (4.30-5.90); White Blood Cell Count 9.22 K/mm3 (4.00-11.30)
[2019-08-01 10:55] LABS: Alanine Aminotransfer (ALT/SGP 79 U/L (12-78); Albumin, Blood 2.1 g/dL (3.4-5.0); Albumin/Globulin Ratio 0.5 (0.8-1.8); Alk Phos 191 U/L (50-136); Anion Gap 5 mmol/L (6-16); Aspartate Aminotrans (AST/SGOT 125 U/L (12-37); Bilirubin, Total 15.1 mg/dL (0.1-1.0); Blood Urea Nitrogen 15 mg/dL (8-24); Bun/Creatinine Ratio 17.5 (12.0-20.0); CO2, Blood 30 mmol/L (21-32); Calcium, Blood 8.1 mg/dL (8.5-10.1); Chloride, Blood 94 mmol/L (98-108); Creatinine, Blood 0.86 mg/dL (0.60-1.20); Globulin, Blood 4.3 g/dL (2.2-4.0); Glomerular Filtration Rate >60 (60-); Glucose, Blood 100 mg/dL (70-99); Potassium, Blood 3.8 mmol/L (3.5-5.5); Sodium, Blood 129 mmol/L (136-145); Total Protein, Blood 6.4 g/dL (6.4-8.2)
--- NOTE | 2019-08-01 16:25 | NUR ---
RECEIEVED REPORT FROM TERESITA JIMÉNEZ RN AT 1430. PATIENT ARRIVED TO ROOM 301 AT 1458.PATIENT TRANSFERED FROM ER VIA STRETCHER AND MOVED TO HOSPITAL BED WITH MIN ASSIST X1. ASSESSMENT COMPLETED WITH THE ASSIST OF THE PATIENT. MEDICATIONS RECONCILLED. PATIENT IN ROOM RESTING AT THIS TIME. WILL CONTINUE TO MONITOR AND PROVIDE CARE NEEDED.
[2019-08-02 04:37] LABS: BASOPHILS PERCENT AUTO 1 % (0-2); EOSINOPHILS ABSOLUTE AUTO 0.43 K/mm3 (0.00-0.68); EOSINOPHILS PERCENT AUTO 5 % (0-6); Hematocrit 26.8 % (37.0-53.0); Hemoglobin 9.3 g/dL (13.5-17.5); IMMATURE GRAN ABSOLUTE AUTO 0.09 K/mm3 (0.00-0.10); IMMATURE GRAN PERCENT AUTO 1 % (0-1); LYMPHOCYTES ABSOLUTE AUTO 1.25 K/mm3 (0.84-5.20); LYMPHOCYTES PERCENT AUTO 14 % (21-46); MONOCYTES ABSOLUTE AUTO 1.03 K/mm3 (0.16-1.47); MONOCYTES PERCENT AUTO 12 % (4-13); Mean Corpuscular HGB Conc 34.7 g/dL (31.5-36.5); Mean Corpuscular Volume 109 fL (80-100); Mean Platelet Volume 10.2 fL (9.1-12.4); NEUTROPHILS ABSOLUTE AUTO 5.76 K/mm3 (1.96-9.15); NEUTROPHILS PERCENT AUTO 67 % (41-73); Platelet Count 82 K/mm3 (150-400); RDW Coefficient Variation 17.7 % (11.7-14.2); Red Blood Cell Count 2.45 M/mm3 (4.30-5.90); White Blood Cell Count 8.66 K/mm3 (4.00-11.30)
[2019-08-02 04:55] LABS: Alanine Aminotransfer (ALT/SGP 66 U/L (12-78); Albumin, Blood 1.9 g/dL (3.4-5.0); Albumin/Globulin Ratio 0.5 (0.8-1.8); Alk Phos 162 U/L (50-136); Anion Gap 5 mmol/L (6-16); Aspartate Aminotrans (AST/SGOT 112 U/L (12-37); Bilirubin, Total 13.4 mg/dL (0.1-1.0); Blood Urea Nitrogen 14 mg/dL (8-24); Bun/Creatinine Ratio 16.7 (12.0-20.0); CO2, Blood 30 mmol/L (21-32); Calcium, Blood 7.9 mg/dL (8.5-10.1); Chloride, Blood 96 mmol/L (98-108); Creatinine, Blood 0.84 mg/dL (0.60-1.20); Glomerular Filtration Rate >60 (60-); Glucose, Blood 85 mg/dL (70-99); Potassium, Blood 3.9 mmol/L (3.5-5.5); Sodium, Blood 131 mmol/L (136-145); Total Protein, Blood 5.9 g/dL (6.4-8.2)
--- NOTE | 2019-08-02 05:33 | NUR ---
SHIFT SUMMARY NO ACUTE EVENTS OVERNIGHT. PICTURES TAKEN OF PATIENTS BLE AND PLACED IN CHART. RIGHT IV PATENT DRESSING C/D/I. WILL CONTINUE TO MONITOR AND REPORT TO ON COMING SHIFT.
--- NOTE | 2019-08-02 18:35 | NUR ---
PT. LYING QUIETLY, NO NOTEABLES CHANGES THIS SHIFT. PT. JAUDICED T/O.
--- NOTE | 2019-08-03 05:53 | NUR ---
INSPECTOR MISSILE SUMMARY PT A/O X4. SLEPT WELL THROUGHOUT THE NIGHT. NO ACUTE CHANGES. MEPLIEX DRESSING CLEAN, DRY AND INTACT. MD WAS CALLED IN ORDER TO OBTAIN ADDITIONAL PAIN MEDICATION HIS PREVIOUS TRAMADOL PO Q8 HOURS COULD ONLY RELEIVE HIS PAIN FOR 3 HOURS. HOWEVER, PT WAS ASLEEP AND DID NOT REQUIRE THE NEWLY PRESCRIBED GABAPENTIN AT THIS TIME. VSS AND WILL CONTINUE TO MONITOR.
--- NOTE | 2019-08-03 17:27 | NUR ---
PATIENT A/OX4, UP INDEPENDENTLY IN ROOM. MEPILEX DRESSINGS TO FEET BILATERALLY REMAIN C/D/I. 20G IV TO R AC WNL AND SL BETWEEN ABX. VSS, ON RA. SKIN AND SCLERA YELLOW, PATIENT HAS ALCOHOLIC CIRRHOSIS. VOIDING IN URINAL, ADEQUATE U/O. TRAMADOL AND GABAPENTIN TO TREAT PAIN WITH STATED RELIEF. PLAN IS FOR PARACENTESIS IN AM. HOLD AM LOVENOX. NO ACUTE CHANGES THIS SHIFT.
--- NOTE | 2019-08-04 04:32 | NUR ---
CLOTH BLEACHING RANGE TENDER SUMMARY PT A/O X4. PT HAD A BLOOD NOSE AT BEGINNING OF SHIFT. PT STATED HE GETS NOSE BLEEDS OFTEN AND WAS RESOLVED BY USING TISSUES. MEPILEX DRESSING ON BILATERAL FEET A LITTLE SOILED AT THE BORDER. DRESSING WAS TAKEN OFF, PT TOOK A SHOWER AND NEW MEPLIEX WAS APPLIED ON BILATERAL FEET. HOWEVER, MEPILEX STARTED TO COME OFF DURING THE NIGHT. ABD PADS AND MART BANDAGE WAS APPLIED BILATERAL FEET IN PLACE OF MEPILEX. PT'S IV DRESSING WAS ALSO CHANGED. PT HAS HAD BOTHERSOME PRODUCTIVE COUGH AT THE BEGINNING OF SHIFT. GUAIFENESIN GIVEN PER MD ORDER. PT EVAULATED AND STATED MED HAS HELPED COUGH. NO ACUTE CHANGES NOTED DURING THIS SHIFT.
--- NOTE | 2019-08-04 04:41 | NUR ---
PT'S PAIN HAS BEEN TOLERABLE AND DID NOT NEED MEDICATION.
[2019-08-04 04:51] LABS: Mean Corpuscular HGB 37.5 pg (26.0-34.0); Mean Corpuscular HGB Conc 33.3 g/dL (31.5-36.5); Mean Platelet Volume 10.6 fL (9.1-12.4); Platelet Count 87 K/mm3 (150-400); RDW Coefficient Variation 17.6 % (11.7-14.2); White Blood Cell Count 8.53 K/mm3 (4.00-11.30)
[2019-08-04 04:56] LABS: Mean Corpuscular Volume 113 fL (80-100)
[2019-08-04 05:05] LABS: International Normalized Ratio 1.68
[2019-08-04 05:13] LABS: Alanine Aminotransfer (ALT/SGP 51 U/L (12-78); Albumin, Blood 1.7 g/dL (3.4-5.0); Albumin/Globulin Ratio 0.4 (0.8-1.8); Alk Phos 157 U/L (50-136); Anion Gap 9 mmol/L (6-16); Aspartate Aminotrans (AST/SGOT 91 U/L (12-37); BAND PERCENT MAN 3 % (0-8); BASOPHILS ABSOLUTE MAN 0.08 K/mm3 (0.00-0.23); BASOPHILS PERCENT MAN 1 % (0-2); Bilirubin, Total 12.3 mg/dL (0.1-1.0); Blood Urea Nitrogen 13 mg/dL (8-24); Bun/Creatinine Ratio 17.2 (12.0-20.0); CO2, Blood 24 mmol/L (21-32); Calcium, Blood 7.9 mg/dL (8.5-10.1); Chloride, Blood 99 mmol/L (98-108); Creatinine, Blood 0.76 mg/dL (0.60-1.20); EOSINOPHILS ABSOLUTE MAN 0.25 K/mm3 (0.00-0.68); EOSINOPHILS PERCENT MAN 3 % (0-6); Globulin, Blood 4.1 g/dL (2.2-4.0); Glomerular Filtration Rate >60 (60-); Glucose, Blood 115 mg/dL (70-99); LYMPHOCYTES ABSOLUTE MAN 0.85 K/mm3 (0.84-5.20); LYMPHOCYTES PERCENT MAN 10 % (21-46); MONOCYTES ABSOLUTE MAN 0.85 K/mm3 (0.16-1.47); MONOCYTES PERCENT MAN 10 % (4-13); MYELOCYTE ABSOLUTE MAN 0.08 K/mm3 (0.00-0.00); MYELOCYTE PERCENT MAN 1 % (0-0); NEUTROPHILS ABSOLUTE MAN 6.39 K/mm3 (1.96-9.15); Potassium, Blood 4.1 mmol/L (3.5-5.5); SEG NEUTROPHILS PERCENT MAN 72 % (41-73); Sodium, Blood 132 mmol/L (136-145); TOTAL CELLS COUNTED 100; Total Protein, Blood 5.8 g/dL (6.4-8.2)
[2019-08-04] MEDS ORDERED: Vsl#3 Capsule1 EACH PO (10:49)
[2019-08-04] MEDS ORDERED: CEPH500 PO (10:50)
--- NOTE | 2019-08-04 12:42 | NUR ---
PT DISCHARGED HOME AT 1200. PT LEFT VIA WHEELCHAIR. PRESCRIPTIONS FAXED [facility]. DISCHARGE INSTRUCTIONS GIVEN. NO QUESTIONS OR CONCERNS AT THIS TIME.
== END 2019-08-04 11:57 | disposition home or self-care (01) | DRG 603 ==
LOC: ER 09:32 → ERHOLD 09:33 → MEDS 14:35 → ENPENDDIS 08-04 11:18 → MEDS 08-04 11:57
PROVIDERS: Emergency Medicine; Internal Medicine; Nurse Practitioner Acute Care; ADMIT Internal Medicine
DX: L03.116 Cellulitis of left lower limb (principal); E87.1 Hypo-osmolality and hyponatremia; E66.9 Obesity, unspecified; D69.6 Thrombocytopenia, unspecified; K21.9 Gastro-esophageal reflux disease without esophagitis; K70.31 Alcoholic cirrhosis of liver with ascites; K72.90 Hepatic failure, unspecified without coma
CPT/HCPCS: 36415; 76705; 80048; 80053; 83735; 85025; 85610; 85730; 87081; 93926; 94640; 94760; 96365; 96366; 96372; 96376; 99284-25; G0378; J0690; J1650; J7050

== ENCOUNTER 2019-09-30 05:15 | Inpatient (IN) | payer OTHER ==
[~2019-09-30] VITALS: Ht 185.4 cm; Wt 117.0 kg
[~2019-09-30 05:15] MED LIST changes: +CEPH500 PO; +Vsl#3 Capsule1 EACH PO
[2019-09-30 05:47] LABS: BASOPHILS ABSOLUTE AUTO 0.05 K/mm3 (0.00-0.23); BASOPHILS PERCENT AUTO 1 % (0-2); EOSINOPHILS ABSOLUTE AUTO 0.17 K/mm3 (0.00-0.68); EOSINOPHILS PERCENT AUTO 3 % (0-6); Hematocrit 28.2 % (37.0-53.0); Hemoglobin 9.9 g/dL (13.5-17.5); IMMATURE GRAN ABSOLUTE AUTO 0.02 K/mm3 (0.00-0.10); IMMATURE GRAN PERCENT AUTO 0 % (0-1); LYMPHOCYTES ABSOLUTE AUTO 0.97 K/mm3 (0.84-5.20); LYMPHOCYTES PERCENT AUTO 16 % (21-46); MONOCYTES PERCENT AUTO 10 % (4-13); Mean Corpuscular HGB 37.9 pg (26.0-34.0); Mean Corpuscular HGB Conc 35.1 g/dL (31.5-36.5); Mean Corpuscular Volume 108 fL (80-100); NEUTROPHILS ABSOLUTE AUTO 4.09 K/mm3 (1.96-9.15); NEUTROPHILS PERCENT AUTO 69 % (41-73); Platelet Count 78 K/mm3 (150-400); RDW Coefficient Variation 14.9 % (11.7-14.2); RDW Standard Deviation 59.3 fL (35.1-46.3); Red Blood Cell Count 2.61 M/mm3 (4.30-5.90)
[2019-09-30 05:53] LABS: Alanine Aminotransfer (ALT/SGP 59 U/L (12-78); Albumin, Blood 2.7 g/dL (3.4-5.0); Albumin/Globulin Ratio 0.7 (0.8-1.8); Alk Phos 129 U/L (50-136); Anion Gap 9 mmol/L (6-16); Aspartate Aminotrans (AST/SGOT 91 U/L (12-37); Bilirubin, Total 6.5 mg/dL (0.1-1.0); Blood Urea Nitrogen 14 mg/dL (8-24); Bun/Creatinine Ratio 17.8 (12.0-20.0); CO2, Blood 22 mmol/L (21-32); Calcium, Blood 8.7 mg/dL (8.5-10.1); Chloride, Blood 100 mmol/L (98-108); Creatinine, Blood 0.79 mg/dL (0.60-1.20); Glomerular Filtration Rate >60 (60-); Glucose, Blood 104 mg/dL (70-99); Potassium, Blood 4.6 mmol/L (3.5-5.5); Sodium, Blood 131 mmol/L (136-145); Total Protein, Blood 6.7 g/dL (6.4-8.2)
[2019-09-30 05:58] LABS: International Normalized Ratio 1.56; Prothrombin Time Results 15.9 Sec (9.7-11.5)
[2019-09-30 06:36] LABS: Ethanol (Alcohol), Blood, Med <3 mg/dL; Magnesium, Blood 1.9 mg/dL (1.6-2.4)
--- NOTE | 2019-09-30 10:05 | NUR ---
PT ARRIVAL... PT ARRIVED VIA GURNEY TO UNIT. PT WAS PULLED OVER TO THE BED W/SLIDER SHEET. PT WAS WRITHING IN THE BED IN PAIN WHEN ASKED WHERE THE PAIN WAS THE PT STATED HIS PENIS. PT WAS ADMITTED FOR HEPATIC ENCEPHALOPATHY. STEVENSON WAS PLACED IN THE ER D/T RETENTION. URO-JET WAS OBTAINED AND APPLIED TO THE PT'S PENIS TO HELP WITH THE PAIN, HOWEVER THE PT STILL CONTINUED TO WRITH AND C/O OF PAIN. ASSSESSMENT WAS DONE TO THE PT'S LIBBY AREA/GROIN, NO OBVIOUS CAUSES FOR THE PT'S 10/10 PAIN WAS NOTED. THE STEVENSON WAS CHANGED FROM A 16FR TO 14 FR, THIS HELPED DECREASE SOME OF THE PAIN PER THE PT. PT'S VS STABLE, PT IS IN NSR IN THE 70'S-80'S. NO EDEMA NOTED ON ASSESSMENT. L/S CLEAR IN THE UPPER/MID LOBES AND DIM IN THE BASES. BT PRESENT AND HYPOACTIVE, ABD IS MOD DISTENDED AND SLIGHTLY FIRM BUT NOT TENDER TO PALP. WILL CONTINUE TO MONITOR.
[2019-09-30 11:42] LABS: Source, Urine Catheter
[2019-09-30 11:46] LABS: Appearance, Urine Clear (Clear); Bilirubin, Urine Neg (Neg); Blood, Urine 3+ (Neg); Color, Urine Yellow (P-Yellow); Glucose Qualitative, Urine Neg (Neg); Ketones, Urine Neg (Neg); Leukocyte Esterase, Urine 2+ (Neg); Nitrite, Urine Neg (Neg); Protein, Urine Neg (Neg); Urobilinogen, Urine NORM (Normal)
[2019-09-30 12:00] LABS: Bacteria Few /hpf; Squamous Epithelial Cells Not Seen /hpf (Few)
--- NOTE | 2019-09-30 15:05 | NUR ---
PT UPDATE.... PT IS MUCH MORE CLEAR THIS AFTERNOON THAN HE WAS THIS AM ON ADMIT. PT IS ABLE TO HOLD COMPLETE CONVERSATIONS ARPROPPRIATELY. PT WAS ABLE TO TALK ABOUT HIS HOME MEDICATIONS AND HEALTH HISTORY. PT IS ABLE TO SWALLOW SAFELY AND HEPATIC DIET WAS ORDERED PER PROVIDER. PT'S VS STABLE. PT STILL C/O OF PAIN IN HIS PENIS BUT THIS HAS GREATLY DECREASED. WILL CONTINUE TO MONITOR.
--- NOTE | 2019-09-30 18:11 | NUR ---
SHIFT SUMMARY. NO ACUTE NEGATIVE CHANGES NOTED THIS SHIFT. PT'S MENTATION HAS IMPROVED. PT'S PAIN HAS IMPROVED WELL. STEVENSON IS PATENT AND DRAINING CLEAR YELLOW/ORANGE URINE TO GRAVITY. PT ATE 100% OF LUNCH TRAY. PT HAS BEEN ABLE TO REPOSITION HIMSSELF IN BED PRN. PT HAS GOTTEN 3 DOSES OF LACUTULOSE BUT HAS NOT HAD A BM THIS SHIFT. PT'S VS HAVE BEEN STABLE. CALL LIGHT IN REACH, BED IS LOCKED AND LOW WITH BED ALARM ON WILL CONTINUE TO MONITOR UNTIL REPORT IS GIVEN TO ONCOMING RN.
--- NOTE | 2019-09-30 20:19 | NUR ---
CARE ASSUMPTION PT A&O X4. VSS. PT DENIES PAIN/DISCOMFORT AT THIS TIME. PT REPORTS HAVING BM AT ABOUT TIME OF SHIFT CHANGE. PT STATES BM "FELT BIG, WASN'T RUNNY BUT WAS SOFT." NEXT DOSE OF LACTULOSE GIVEN PER EMAR W/ GOAL OF 2-3 BM'S IN 24 HR PER ORDER. PT ABD SOFT AND DISTENDED. PT REPORTS ABD "MAYBE A LITTLE MORE DISTENDED THAN NORMALLY." PT DENIES PAIN W/ PALPATION. HYPERACTIVE BT. +1 BLE SWELLING. WILL CONTINUE TO MONITOR AND PROVIDE CARE.
--- NOTE | 2019-10-01 02:34 | NUR ---
LACTULOSE / LOOSE STOOLS PT W/ REQUEST "CAN YOU GIVE ME SOMETHING FOR DIARRHEA?" PT W/ 2 LOOSE BM'S THIS SHIFT. FURTHER EXPLAINED TO PT REASONING FOR LACTULOSE TX AND RESULTING LOOSE STOOLS. PT UNDERSTANDING. WILL CONTINUE TO MONITOR AND PROVIDE CARE.
[2019-10-01 04:35] LABS: Hematocrit 26.6 % (37.0-53.0); Hemoglobin 9.1 g/dL (13.5-17.5); Mean Corpuscular HGB 37.9 pg (26.0-34.0); Mean Corpuscular HGB Conc 34.2 g/dL (31.5-36.5); Mean Platelet Volume 10.5 fL (9.1-12.4); Platelet Count 81 K/mm3 (150-400); RDW Coefficient Variation 14.8 % (11.7-14.2); RDW Standard Deviation 60.6 fL (35.1-46.3); White Blood Cell Count 5.13 K/mm3 (4.00-11.30)
[2019-10-01 04:40] LABS: Mean Corpuscular Volume 111 fL (80-100)
[2019-10-01 04:49] LABS: Alanine Aminotransfer (ALT/SGP 50 U/L (12-78); Albumin, Blood 2.6 g/dL (3.4-5.0); Albumin/Globulin Ratio 0.7 (0.8-1.8); Alk Phos 105 U/L (50-136); Anion Gap 8 mmol/L (6-16); Aspartate Aminotrans (AST/SGOT 66 U/L (12-37); Bilirubin, Total 6.2 mg/dL (0.1-1.0); Blood Urea Nitrogen 10 mg/dL (8-24); Bun/Creatinine Ratio 14.8 (12.0-20.0); CO2, Blood 21 mmol/L (21-32); Calcium, Blood 8.6 mg/dL (8.5-10.1); Chloride, Blood 106 mmol/L (98-108); Creatinine, Blood 0.68 mg/dL (0.60-1.20); Globulin, Blood 3.7 g/dL (2.2-4.0); Glomerular Filtration Rate >60 (60-); Glucose, Blood 84 mg/dL (70-99); Potassium, Blood 4.2 mmol/L (3.5-5.5); Sodium, Blood 135 mmol/L (136-145); Total Protein, Blood 6.3 g/dL (6.4-8.2)
--- NOTE | 2019-10-01 05:59 | NUR ---
SHIFT SUMMARY PT CONTINUES TO BE A&O X4. VSS. LACTULOSE GIVEN X1 PER EMAR THIS SHIFT W/ 1 BM AT SHIFT CHANGE, AND 2 FURTHER BM'S THIS SHIFT. PT ABD SOFT AND DISTENDED. PT DENIES PAIN/DISCOMFORT. STEVENSON CATH PATENT AND DRAINING ORANGE URINE UPON CARE ASSUMPTION W/ URINE NOW YELLOW. SKIN JAUNDICED. PT CALLING APPROPRIATELY, 1 PERSON SBA OOB. WILL CONTINUE TO MONITOR AND PROVIDE CARE UNTIL REPORT OFF TO DAY SHIFT RN.
--- NOTE | 2019-10-01 07:36 | NUR ---
AM NOTE. ASSUMED CARE OF PT APROX 0700. PT IS A&Ox4, GREATLY IMPROVED FROM YESTERDAY. PT'S VS STABLE, PT IS IN NSR W/PVCS IN THE 70'S-80'S PER ACADEMIC SUPPORT SPECIALIST. PT DENIES ANY PAIN AT THIS TIME. STEVENSON IS PATENT AND DRAINING CLEAR YELLOW/ORANGE URINE TO GRAVITY. TRACE EDEMA IS NOTED TO THE PT'S BLE. L/S CLEAR IN THE UPPER LOBES AND DIM IN THE LOWER, PT IS ON RA. ABD IS MOD DISTENDED, SOFTER THAN YESTERDAY AND NONTENDER TO PALP. BT HYPERACTIVE. BLADDER TRAINING STARTED IN HOPES OF D/C'ING STEVENSON TODAY. CALL LIGHT IN REACH, WILL CONTINUE TO MONITOR.
[2019-10-01] MEDS ORDERED: LACT10SY PO (12:43)
[2019-10-01] MEDS ORDERED: Florastor250 MG PO (12:49)
[2019-10-01] MEDS ORDERED: CIPR500 PO (12:51)
== END 2019-10-01 13:48 | disposition home or self-care (01) | DRG 442 ==
LOC: ER 05:15 → PCU 06:36
PROVIDERS: Emergency Medicine; Internal Medicine; ADMIT Internal Medicine
DX: K72.90 Hepatic failure, unspecified without coma (principal); N39.0 Urinary tract infection, site not specified; E87.1 Hypo-osmolality and hyponatremia; K70.31 Alcoholic cirrhosis of liver with ascites; D69.6 Thrombocytopenia, unspecified; K21.9 Gastro-esophageal reflux disease without esophagitis; E86.0 Dehydration
CPT/HCPCS: 36415; 51702; 80053; 81001; 82140; 83690; 83735; 85025; 85027; 85610; 87086; 96365-59; 96375-59; 99285-25; G0480; J0696; J1650; J3010; J3411; J3475; J7030; J7042; J7050; P9046

== ENCOUNTER 2019-11-08 10:00 | Day surgery (SDC) | payer OTHER ==
[~2019-11-08] VITALS: Ht 185.4 cm; Wt 121.6 kg
[~2019-11-08 10:00] MED LIST changes: +CIPR500 PO; +Florastor250 MG PO; +LACT10SY PO
== END 2019-11-08 12:02 | disposition home or self-care (01) ==
LOC: ORSCSDS 10:00
DX: R11.2 Nausea with vomiting, unspecified (principal); K29.50 Unspecified chronic gastritis without bleeding; K31.7 Polyp of stomach and duodenum; K74.60 Unspecified cirrhosis of liver; E66.9 Obesity, unspecified; Z68.34 Body mass index [BMI] 34.0-34.9, adult; K25.9 Gastric ulcer, unspecified as acute or chronic, without hemorrhage or perforation; K76.6 Portal hypertension; K31.89 Other diseases of stomach and duodenum; I85.00 Esophageal varices without bleeding; Z79.899 Other long term (current) drug therapy
CPT/HCPCS: 88305; 88341; 88342; J2250; J2704; J7120

== ENCOUNTER 2020-03-30 15:04 | Inpatient (IN) | payer OTHER ==
[~2020-03-30] VITALS: Ht 185.4 cm; Wt 136.9 kg
[2020-03-30 15:36] LABS: BASOPHILS ABSOLUTE AUTO 0.03 K/mm3 (0.00-0.23); BASOPHILS PERCENT AUTO 1 % (0-2); EOSINOPHILS ABSOLUTE AUTO 0.23 K/mm3 (0.00-0.68); EOSINOPHILS PERCENT AUTO 6 % (0-6); Hematocrit 25.1 % (37.0-53.0); Hemoglobin 7.7 g/dL (13.5-17.5); IMMATURE GRAN PERCENT AUTO 0 % (0-1); LYMPHOCYTES ABSOLUTE AUTO 0.84 K/mm3 (0.84-5.20); LYMPHOCYTES PERCENT AUTO 22 % (21-46); MONOCYTES ABSOLUTE AUTO 0.65 K/mm3 (0.16-1.47); MONOCYTES PERCENT AUTO 17 % (4-13); Mean Corpuscular HGB Conc 30.7 g/dL (31.5-36.5); Mean Corpuscular Volume 91 fL (80-100); Mean Platelet Volume 10.7 fL (9.1-12.4); NEUTROPHILS ABSOLUTE AUTO 2.03 K/mm3 (1.96-9.15); NEUTROPHILS PERCENT AUTO 54 % (41-73); Platelet Count 105 K/mm3 (150-400); RDW Coefficient Variation 14.6 % (11.7-14.2); RDW Standard Deviation 49.1 fL (35.1-46.3); Red Blood Cell Count 2.75 M/mm3 (4.30-5.90); White Blood Cell Count 3.78 K/mm3 (4.00-11.30)
[2020-03-30 15:53] LABS: Alanine Aminotransfer (ALT/SGP 35 U/L (12-78); Albumin, Blood 2.6 g/dL (3.4-5.0); Albumin/Globulin Ratio 0.7 (0.8-1.8); Alk Phos 145 U/L (50-136); Anion Gap 4 mmol/L (6-16); Aspartate Aminotrans (AST/SGOT 47 U/L (12-37); Bilirubin, Total 2.7 mg/dL (0.1-1.0); Blood Urea Nitrogen 8 mg/dL (8-24); Bun/Creatinine Ratio 10.1 (12.0-20.0); CO2, Blood 22 mmol/L (21-32); Calcium, Blood 7.9 mg/dL (8.5-10.1); Chloride, Blood 112 mmol/L (98-108); Globulin, Blood 3.5 g/dL (2.2-4.0); Glomerular Filtration Rate >60 (60-); Glucose, Blood 84 mg/dL (70-99); Potassium, Blood 4.1 mmol/L (3.5-5.5); Sodium, Blood 138 mmol/L (136-145); Total Protein, Blood 6.1 g/dL (6.4-8.2); Troponin I <0.015 ng/mL (0.000-0.040)
[2020-03-30] MEDS ORDERED: ONDA4ODT SL (17:17)
[2020-03-30] MEDS ORDERED: MECL25 PO (17:18)
[2020-03-30 20:04] LABS: International Normalized Ratio 1.46; Prothrombin Time Results 15.3 Sec (9.7-11.5)
[2020-03-30 21:32] LABS: Hematocrit 23.5 % (37.0-53.0); Hemoglobin 7.3 g/dL (13.5-17.5)
--- NOTE | 2020-03-31 00:30 | NUR ---
PCU CRATER AND PACKER CALLED RE HR IN 120'S, OTHER VS ARE OK, CALLED DR CLAYTON, REQUESTED STAT HGB. PT DENIES ANY DISCOMFORT AND HAS HAD NO STOOLS YET FOR US. NO N/V AND NO ACTIVE BLEEDING ANYWHERE VISIBLE AT THIS TIME. REQUESTED A CALL BACK WITH LAB RESULTS.
[2020-03-31 00:35] LABS: Hematocrit 24.5 % (37.0-53.0); Hemoglobin 7.5 g/dL (13.5-17.5)
--- NOTE | 2020-03-31 01:03 | NUR ---
PER PCU, TELE IS 110'S TO 120'S, HGB IS 7.5, WAS 7.3. PT LYING IN BED APPEARS TO BE RESTING COMFORTABLY, PT DENIES ANY DISCOMFORT. CALLED DR CLAYTON BACK, 'S ORDERS TO CONTINUE TO MONITOR FOR NOW.
--- NOTE | 2020-03-31 03:45 | NUR ---
03/30/20 2227 PT ARRIVED TO ROOM VIA GURNEY FROM ER IN STABLE CONDITION. REPORTS SOB THAT INCREASES WITH EXERTION. ON RA AT 99%. TELE NSR AT 85. EDEMA IN LE'S AT 2+. NO OTHER APPARENT SIGNS OF DISTRESS. CALL LIGHT IN REACH.
--- NOTE | 2020-03-31 03:48 | NUR ---
PT LYING IN BED, EYES CLOSED, APPEARS TO BE RESTING. BREATHING IS EVEN, UNLABORED. NO APPARENT SIGNS OF DISTRESS. CALL LIGHT IS IN REACH.
--- NOTE | 2020-03-31 03:48 | NUR ---
0200 PT LYING IN BED, EYES CLOSED, APPEARS TO BE RESTING. BREATHING IS EVEN, UNLABORED. NO APPARENT SIGNS OF DISTRESS. CALL LIGHT IS IN REACH.
--- NOTE | 2020-03-31 03:49 | NUR ---
PT IS AAO X 4, ON RA. TELE ST IN 110'S TO 120'S. SOB THAT INCREASES WITH EXERTION, O2 IS 96%. SCD'S, IS.
[2020-03-31 05:11] LABS: Hematocrit 22.6 % (37.0-53.0); Hemoglobin 6.9 g/dL (13.5-17.5)
[2020-03-31 05:39] LABS: Alanine Aminotransfer (ALT/SGP 34 U/L (12-78); Albumin, Blood 2.3 g/dL (3.4-5.0); Albumin/Globulin Ratio 0.7 (0.8-1.8); Alk Phos 130 U/L (50-136); Anion Gap 4 mmol/L (6-16); Aspartate Aminotrans (AST/SGOT 51 U/L (12-37); Bilirubin, Total 3.5 mg/dL (0.1-1.0); Blood Urea Nitrogen 8 mg/dL (8-24); Bun/Creatinine Ratio 8.5 (12.0-20.0); CO2, Blood 25 mmol/L (21-32); Calcium, Blood 7.9 mg/dL (8.5-10.1); Chloride, Blood 110 mmol/L (98-108); Creatinine, Blood 0.95 mg/dL (0.60-1.20); Globulin, Blood 3.2 g/dL (2.2-4.0); Glomerular Filtration Rate >60 (60-); Glucose, Blood 95 mg/dL (70-99); Potassium, Blood 4.6 mmol/L (3.5-5.5); Sodium, Blood 139 mmol/L (136-145); Total Protein, Blood 5.5 g/dL (6.4-8.2)
--- NOTE | 2020-03-31 05:57 | NUR ---
PT IS UP IN BATHROOM AT THIS TIME. NO APPARENT SIGNS OF DISTRESS. CALL LIGHT/CORD IS ON REACH. NO OTHER CHANGES THIS SHIFT.
[2020-03-31 12:04] LABS: Hemoglobin 7.4 g/dL (13.5-17.5); Mean Corpuscular HGB 27.9 pg (26.0-34.0); Mean Corpuscular HGB Conc 30.8 g/dL (31.5-36.5); Mean Corpuscular Volume 91 fL (80-100); Mean Platelet Volume 10.6 fL (9.1-12.4); Platelet Count 98 K/mm3 (150-400); RDW Coefficient Variation 14.7 % (11.7-14.2); RDW Standard Deviation 48.3 fL (35.1-46.3); Red Blood Cell Count 2.65 M/mm3 (4.30-5.90); White Blood Cell Count 3.46 K/mm3 (4.00-11.30)
[2020-03-31 14:44] LABS: U Amphetamine Screen Not Detected; U Barbituate Screen Not Detected; U Benzodiazapine Screen Not Detected; U Buprenorphine Screen Not Detected; U Cannabinoids Screen Not Detected; U Cocaine Screen Not Detected; U Methadone Screen Not Detected; U Methamphetamine Screen Not Detected; U Opiates Screen Not Detected; U Oxycodone Screen Not Detected; U Phencyclidine Screen Not Detected; U Propoxyphene Screen Not Detected
[2020-03-31 16:23] LABS: Percent Saturation 15.7 % (20.0-50.0)
--- NOTE | 2020-03-31 19:10 | NUR ---
A+O, DR IN PROMISED TO CHANGE DIET SO HE COULD EAT BEFORE BEING NPO FOR PROCEDURE, TWO DRIPS INFUSING, CALL LIGHT IN REACH, BSR SHARED WITH NOC NURSE AND PT
--- NOTE | 2020-04-01 04:38 | NUR ---
SHIFT SUMMARY ADMITTED FOR ANEMIA. FOUND TO HAVE ESOPHAGEAL VARICES, ULCERS, CIRRHOSIS. FULL CODE. ON RA, 2 G LOW NA+ DIET, INDEPENDENT, TELEMETRY: NSR @ 74 BPM. PLAN IS FOR EGD TODAY WITH CONSULT DR MCMAHON. PT IS TO HAVE ICE & WATER ONLY STARTING AT 0600 HRS, NPO @ 1300 HRS. SANDOSTATIN IS INFUSING @ 25 ML/HR
[2020-04-01 05:25] LABS: BASOPHILS ABSOLUTE AUTO 0.03 K/mm3 (0.00-0.23); BASOPHILS PERCENT AUTO 1 % (0-2); EOSINOPHILS ABSOLUTE AUTO 0.18 K/mm3 (0.00-0.68); EOSINOPHILS PERCENT AUTO 6 % (0-6); Hematocrit 22.9 % (37.0-53.0); Hemoglobin 7.1 g/dL (13.5-17.5); IMMATURE GRAN ABSOLUTE AUTO 0.01 K/mm3 (0.00-0.10); IMMATURE GRAN PERCENT AUTO 0 % (0-1); LYMPHOCYTES ABSOLUTE AUTO 0.89 K/mm3 (0.84-5.20); LYMPHOCYTES PERCENT AUTO 31 % (21-46); MONOCYTES ABSOLUTE AUTO 0.35 K/mm3 (0.16-1.47); MONOCYTES PERCENT AUTO 12 % (4-13); Mean Corpuscular HGB 27.7 pg (26.0-34.0); Mean Corpuscular Volume 90 fL (80-100); Mean Platelet Volume 11.2 fL (9.1-12.4); NEUTROPHILS ABSOLUTE AUTO 1.39 K/mm3 (1.96-9.15); NEUTROPHILS PERCENT AUTO 49 % (41-73); Platelet Count 80 K/mm3 (150-400); RDW Coefficient Variation 14.7 % (11.7-14.2); RDW Standard Deviation 47.8 fL (35.1-46.3); Red Blood Cell Count 2.56 M/mm3 (4.30-5.90); White Blood Cell Count 2.85 K/mm3 (4.00-11.30)
[2020-04-01 05:42] LABS: Anion Gap 5 mmol/L (6-16); Blood Urea Nitrogen 9 mg/dL (8-24); Bun/Creatinine Ratio 7.8 (12.0-20.0); CO2, Blood 26 mmol/L (21-32); Calcium, Blood 7.8 mg/dL (8.5-10.1); Chloride, Blood 106 mmol/L (98-108); Creatinine, Blood 1.15 mg/dL (0.60-1.20); Glomerular Filtration Rate >60 (60-); Glucose, Blood 92 mg/dL (70-99); Potassium, Blood 4.2 mmol/L (3.5-5.5); Sodium, Blood 137 mmol/L (136-145)
--- NOTE | 2020-04-01 16:18 | NUR ---
04/01/20 1618 Danish Reid History, Chart, Medications and Allergies reviewed before start of procedure.MONITOR INTACT WITH CONTINUOUS PULSE OXIMETRY AND INTERMITTENT BP.3-LEAD EKG REVIEWED WITH PHYSICIAN PRIOR TO START OF PROCEDURE.O2 VIA N/C INTACT THROUGHOUT SEDATION/PROCEDURE. See Anesthesia record.
--- NOTE | 2020-04-01 18:15 | NUR ---
SHIFT SUMMARY PT HAD EGD THIS EVENING. SEE REPORT FOR FINDINGS. PT HAS HAD NO COMPLAINTS OF PAIN, NAUSEA, OR SHORTNESS OF BREATH. PT ATE 100% OF DINNER WITHOUT DIFFUCLTY. PLANS FOR POSSIBLE DISCHARGE IN AM IF PT'S LABS WNL. CALL LIGHT IN REACH. WILL CONTINUE TO MONITOR AND REPORT TO ONCOMING RN.
--- NOTE | 2020-04-02 04:53 | NUR ---
SHIFT SUMMARY ADMITTED FOR ANEMIA. FULL CODE. EGD PERFORMED YESTERDAY. HOPEFUL FOR DC FIRST THING THIS MORNING HE HAS A PRE-PAID FISHING TRIP TO [place]. HE IS INDEPENDENT, ON RA, 2 G LOW NA+ DIET. TELEMETRY: NSR W/1ST DEGREE HB @ 81 BPM. PERTINENT HX: ULCERS, ESOPHAGEAL VARICES, GERD, CIRRHOSIS, QUIT DRINKING 06/2018.
[2020-04-02 05:18] LABS: BASOPHILS ABSOLUTE AUTO 0.03 K/mm3 (0.00-0.23); BASOPHILS PERCENT AUTO 1 % (0-2); EOSINOPHILS ABSOLUTE AUTO 0.21 K/mm3 (0.00-0.68); EOSINOPHILS PERCENT AUTO 7 % (0-6); Hematocrit 23.7 % (37.0-53.0); Hemoglobin 7.2 g/dL (13.5-17.5); IMMATURE GRAN ABSOLUTE AUTO 0.01 K/mm3 (0.00-0.10); IMMATURE GRAN PERCENT AUTO 0 % (0-1); LYMPHOCYTES ABSOLUTE AUTO 0.95 K/mm3 (0.84-5.20); LYMPHOCYTES PERCENT AUTO 30 % (21-46); MONOCYTES ABSOLUTE AUTO 0.39 K/mm3 (0.16-1.47); MONOCYTES PERCENT AUTO 12 % (4-13); Mean Corpuscular HGB 27.3 pg (26.0-34.0); Mean Corpuscular HGB Conc 30.4 g/dL (31.5-36.5); Mean Corpuscular Volume 90 fL (80-100); Mean Platelet Volume 10.9 fL (9.1-12.4); NEUTROPHILS ABSOLUTE AUTO 1.62 K/mm3 (1.96-9.15); NEUTROPHILS PERCENT AUTO 51 % (41-73); Platelet Count 91 K/mm3 (150-400); RDW Coefficient Variation 14.8 % (11.7-14.2); RDW Standard Deviation 47.8 fL (35.1-46.3); Red Blood Cell Count 2.64 M/mm3 (4.30-5.90); White Blood Cell Count 3.21 K/mm3 (4.00-11.30)
[2020-04-02] MEDS ORDERED: FERSU300 PO (07:57)
[2020-04-02] MEDS ORDERED: LACTULOSE PO (07:57)
[2020-04-02] MEDS ORDERED: CIPR500 PO (07:57)
--- NOTE | 2020-04-02 09:32 | NUR ---
DISCHARGE PT DISCHARGED TO HOME. THIS RN EXPLAINED DISCHARGE INSTRUCTIONS AND MEDICATIONS TO PT AND HE REPORTS HE UNDERSTANDS. THIS RN ALSO ENCOURAGED PT TO DEPUTY INSURANCE COMMISSIONER PRESCRIPTIONS BEFORE LEAVING FOR TRIP AND TO TAKE THEM PRESCRIBED. ENCOURAGED PT TO TAKE HIS LACTULOSE. PT REPORTS HE IS AWARE WHAT IT'S FOR. PT DECLINED TO TAKE AM MEDICATIONS DUE TO HAVING HIS OWN. IVS REMOVED WITHOUT DIFFICULTY. PT AMBULATED TO PRIVATE VEHICLE WITH STAFF AT SIDE. BELONGINGS WITH PT.
== END 2020-04-02 08:30 | disposition home or self-care (01) | DRG 377 ==
LOC: ER 15:04 → MEDS 21:48
PROVIDERS: Hospitalist; Internal Medicine Gastroenterology; Nurse Practitioner Acute Care; Physician Assistant; ADMIT Family Medicine
PROC: 0DJ08ZZ Inspection of Upper Intestinal Tract, Via Natural or Artificial Opening Endoscopic (ICD-10-PCS; principal; 2020-04-01 16:15)
DX: K25.4 Chronic or unspecified gastric ulcer with hemorrhage (principal); J18.9 Pneumonia, unspecified organism; K76.6 Portal hypertension; D62 Acute posthemorrhagic anemia; K21.9 Gastro-esophageal reflux disease without esophagitis; I85.10 Secondary esophageal varices without bleeding; K72.90 Hepatic failure, unspecified without coma; F10.11 Alcohol abuse, in remission; K70.31 Alcoholic cirrhosis of liver with ascites; K31.7 Polyp of stomach and duodenum; D69.6 Thrombocytopenia, unspecified
CPT/HCPCS: 36415; 71045; 80048; 80053; 82140; 82728; 83540; 83550; 83605; 83735; 84145; 84484; 85014; 85018; 85025; 85027; 85610; 85730; 86850; 86900; 86901; 87040; 93005; 93010; 96365; 96367; 96375; 96376; 99285-25; C9113; J0456; J0696; J2001; J2354; J2704; J2916; J7050; J7120; U0002

== ENCOUNTER 2020-05-31 17:14 | Emergency (ER) | payer OTHER ==
[~2020-05-31] VITALS: Ht 185.4 cm; Wt 129.3 kg
[~2020-05-31 17:14] MED LIST changes: +FERSU300 PO; +LACTULOSE PO; +MECL25 PO; +ONDA4ODT SL
[2020-05-31 17:57] LABS: BASOPHILS ABSOLUTE AUTO 0.03 K/mm3 (0.00-0.23); BASOPHILS PERCENT AUTO 1 % (0-2); EOSINOPHILS ABSOLUTE AUTO 0.29 K/mm3 (0.00-0.68); EOSINOPHILS PERCENT AUTO 7 % (0-6); Hematocrit 26.1 % (37.0-53.0); Hemoglobin 7.6 g/dL (13.5-17.5); IMMATURE GRAN ABSOLUTE AUTO 0.01 K/mm3 (0.00-0.10); IMMATURE GRAN PERCENT AUTO 0 % (0-1); LYMPHOCYTES ABSOLUTE AUTO 0.69 K/mm3 (0.84-5.20); LYMPHOCYTES PERCENT AUTO 17 % (21-46); MONOCYTES ABSOLUTE AUTO 0.45 K/mm3 (0.16-1.47); MONOCYTES PERCENT AUTO 11 % (4-13); Mean Corpuscular HGB 25.8 pg (26.0-34.0); Mean Corpuscular HGB Conc 29.1 g/dL (31.5-36.5); Mean Corpuscular Volume 89 fL (80-100); NEUTROPHILS PERCENT AUTO 63 % (41-73); Platelet Count 96 K/mm3 (150-400); RDW Coefficient Variation 18.3 % (11.7-14.2); RDW Standard Deviation 59.2 fL (35.1-46.3); Red Blood Cell Count 2.95 M/mm3 (4.30-5.90); White Blood Cell Count 3.97 K/mm3 (4.00-11.30)
[2020-05-31 18:20] LABS: Alanine Aminotransfer (ALT/SGP 27 U/L (12-78); Albumin, Blood 2.3 g/dL (3.4-5.0); Albumin/Globulin Ratio 0.7 (0.8-1.8); Alk Phos 173 U/L (50-136); Anion Gap 6 mmol/L (6-16); Aspartate Aminotrans (AST/SGOT 43 U/L (12-37); Bilirubin, Total 3.6 mg/dL (0.1-1.0); Blood Urea Nitrogen 7 mg/dL (8-24); Bun/Creatinine Ratio 10.4 (12.0-20.0); CO2, Blood 23 mmol/L (21-32); Calcium, Blood 7.6 mg/dL (8.5-10.1); Chloride, Blood 112 mmol/L (98-108); Creatinine, Blood 0.67 mg/dL (0.60-1.20); Globulin, Blood 3.4 g/dL (2.2-4.0); Glomerular Filtration Rate >60 (60-); Glucose, Blood 93 mg/dL (70-99); Potassium, Blood 3.6 mmol/L (3.5-5.5); Sodium, Blood 141 mmol/L (136-145); Total Protein, Blood 5.7 g/dL (6.4-8.2); Troponin I <0.015 ng/mL (0.000-0.040)
[2020-05-31] MEDS ORDERED: TORSE20 PO (19:14)
== END 2020-05-31 19:41 | disposition home or self-care (01) ==
LOC: ER 17:14
PROVIDERS: Emergency Medicine
DX: K74.60 Unspecified cirrhosis of liver (principal); D64.9 Anemia, unspecified; R06.02 Shortness of breath; R05 Cough; K21.9 Gastro-esophageal reflux disease without esophagitis; Z88.5 Allergy status to narcotic agent; Z79.899 Other long term (current) drug therapy
CPT/HCPCS: 36415; 71046; 80053; 83880; 84484; 85025; 93005; 93010; 96374; 99285-25; J1940

== ENCOUNTER 2020-06-19 20:16 | Emergency (ER) | payer OTHER ==
[~2020-06-19] VITALS: Ht 185.4 cm; Wt 136.1 kg
[~2020-06-19 20:16] MED LIST changes: +TORSE20 PO
[2020-06-19 21:43] LABS: BASOPHILS ABSOLUTE AUTO 0.04 K/mm3 (0.00-0.23); BASOPHILS PERCENT AUTO 1 % (0-2); EOSINOPHILS ABSOLUTE AUTO 0.38 K/mm3 (0.00-0.68); EOSINOPHILS PERCENT AUTO 6 % (0-6); Hematocrit 23.3 % (37.0-53.0); Hemoglobin 7.2 g/dL (13.5-17.5); IMMATURE GRAN ABSOLUTE AUTO 0.03 K/mm3 (0.00-0.10); IMMATURE GRAN PERCENT AUTO 0 % (0-1); LYMPHOCYTES ABSOLUTE AUTO 1.22 K/mm3 (0.84-5.20); LYMPHOCYTES PERCENT AUTO 18 % (21-46); MONOCYTES ABSOLUTE AUTO 0.86 K/mm3 (0.16-1.47); MONOCYTES PERCENT AUTO 13 % (4-13); Mean Corpuscular HGB 26.3 pg (26.0-34.0); Mean Corpuscular HGB Conc 30.9 g/dL (31.5-36.5); Mean Corpuscular Volume 85 fL (80-100); Mean Platelet Volume 11.5 fL (9.1-12.4); NEUTROPHILS ABSOLUTE AUTO 4.33 K/mm3 (1.96-9.15); NEUTROPHILS PERCENT AUTO 63 % (41-73); Platelet Count 146 K/mm3 (150-400); RDW Coefficient Variation 19.7 % (11.7-14.2); RDW Standard Deviation 60.8 fL (35.1-46.3); Red Blood Cell Count 2.74 M/mm3 (4.30-5.90); White Blood Cell Count 6.86 K/mm3 (4.00-11.30)
[2020-06-19 22:03] LABS: Alanine Aminotransfer (ALT/SGP 28 U/L (12-78); Albumin, Blood 2.3 g/dL (3.4-5.0); Albumin/Globulin Ratio 0.6 (0.8-1.8); Alk Phos 164 U/L (50-136); Anion Gap 8 mmol/L (6-16); Aspartate Aminotrans (AST/SGOT 47 U/L (12-37); Bilirubin, Total 4.2 mg/dL (0.1-1.0); Blood Urea Nitrogen 17 mg/dL (8-24); Bun/Creatinine Ratio 15.6 (12.0-20.0); CO2, Blood 25 mmol/L (21-32); Calcium, Blood 7.6 mg/dL (8.5-10.1); Chloride, Blood 108 mmol/L (98-108); Creatinine, Blood 1.09 mg/dL (0.60-1.20); Globulin, Blood 3.7 g/dL (2.2-4.0); Glomerular Filtration Rate >60 (60-); Glucose, Blood 117 mg/dL (70-99); Potassium, Blood 2.7 mmol/L (3.5-5.5); Sodium, Blood 141 mmol/L (136-145); Troponin I <0.015 ng/mL (0.000-0.040)
[2020-06-20] MEDS ORDERED: Prednisone20 MG PO (00:32)
[2020-06-20] MEDS ORDERED: Norco 5-325 Ta1 EACH PO (00:32)
[2020-06-20 01:53] LABS: Magnesium, Blood 1.7 mg/dL (1.6-2.4)
== END 2020-06-20 02:50 | disposition home or self-care (01) ==
LOC: ER 20:16
PROVIDERS: Physician Assistant
DX: J45.901 Unspecified asthma with (acute) exacerbation (principal); R07.89 Other chest pain; Z88.5 Allergy status to narcotic agent; Z79.899 Other long term (current) drug therapy
CPT/HCPCS: 36415; 71046; 80053; 83690; 83735; 83880; 84484; 85025; 93005; 93010; 94640; 96374; 96375; 99285-25; A9270; J1170; J1885; J2405; J7512

== ENCOUNTER 2020-06-24 14:31 | Inpatient (IN) | payer OTHER ==
[~2020-06-24] VITALS: Ht 177.8 cm; Wt 152.7 kg
[~2020-06-24 14:31] MED LIST changes: +Norco 5-325 Ta1 EACH PO; +Prednisone20 MG PO
[2020-06-24] MEDS ORDERED: TORS10 PO (14:44)
[2020-06-24] MEDS ORDERED: PRED20 PO (14:44)
[2020-06-24] MEDS ORDERED: OMEP20ER PO (14:45)
[2020-06-24] MEDS ORDERED: Norco 5-325 Ta1 EACH PO (14:45)
[2020-06-24 14:52] LABS: BASOPHILS ABSOLUTE AUTO 0.01 K/mm3 (0.00-0.23); BASOPHILS PERCENT AUTO 0 % (0-2); EOSINOPHILS ABSOLUTE AUTO 0.01 K/mm3 (0.00-0.68); EOSINOPHILS PERCENT AUTO 0 % (0-6); Hematocrit 24.2 % (37.0-53.0); Hemoglobin 7.4 g/dL (13.5-17.5); IMMATURE GRAN ABSOLUTE AUTO 0.11 K/mm3 (0.00-0.10); IMMATURE GRAN PERCENT AUTO 1 % (0-1); LYMPHOCYTES ABSOLUTE AUTO 0.94 K/mm3 (0.84-5.20); LYMPHOCYTES PERCENT AUTO 10 % (21-46); MONOCYTES ABSOLUTE AUTO 0.95 K/mm3 (0.16-1.47); MONOCYTES PERCENT AUTO 10 % (4-13); Mean Corpuscular HGB 25.7 pg (26.0-34.0); Mean Corpuscular HGB Conc 30.6 g/dL (31.5-36.5); Mean Corpuscular Volume 84 fL (80-100); Mean Platelet Volume 11.1 fL (9.1-12.4); NEUTROPHILS ABSOLUTE AUTO 7.76 K/mm3 (1.96-9.15); NEUTROPHILS PERCENT AUTO 79 % (41-73); Platelet Count 173 K/mm3 (150-400); RDW Coefficient Variation 19.2 % (11.7-14.2); RDW Standard Deviation 59.1 fL (35.1-46.3); Red Blood Cell Count 2.88 M/mm3 (4.30-5.90); White Blood Cell Count 9.78 K/mm3 (4.00-11.30)
[2020-06-24 15:12] LABS: Alanine Aminotransfer (ALT/SGP 49 U/L (12-78); Albumin, Blood 2.4 g/dL (3.4-5.0); Albumin/Globulin Ratio 0.6 (0.8-1.8); Alk Phos 153 U/L (50-136); Anion Gap 6 mmol/L (6-16); Aspartate Aminotrans (AST/SGOT 65 U/L (12-37); Bilirubin, Total 3.5 mg/dL (0.1-1.0); Blood Urea Nitrogen 25 mg/dL (8-24); Bun/Creatinine Ratio 24.5 (12.0-20.0); CO2, Blood 31 mmol/L (21-32); Calcium, Blood 7.8 mg/dL (8.5-10.1); Chloride, Blood 106 mmol/L (98-108); Creatinine, Blood 1.02 mg/dL (0.60-1.20); Ethanol (Alcohol), Blood, Med 4 mg/dL; Globulin, Blood 3.9 g/dL (2.2-4.0); Glomerular Filtration Rate >60 (60-); Glucose, Blood 112 mg/dL (70-99); Potassium, Blood 3.8 mmol/L (3.5-5.5); Sodium, Blood 143 mmol/L (136-145); Total Protein, Blood 6.3 g/dL (6.4-8.2)
[2020-06-24 15:26] LABS: International Normalized Ratio 1.56; Prothrombin Time Results 16.3 Sec (9.7-11.5)
[2020-06-24 20:23] LABS: U Amphetamine Screen Not Detected
[2020-06-24 20:24] LABS: U Barbituate Screen Not Detected; U Benzodiazapine Screen Not Detected; U Buprenorphine Screen Not Detected; U Cannabinoids Screen Not Detected; U Cocaine Screen Not Detected; U Methadone Screen Not Detected; U Methamphetamine Screen Not Detected; U Opiates Screen DETECTED; U Oxycodone Screen Not Detected; U Phencyclidine Screen Not Detected; U Propoxyphene Screen Not Detected
[2020-06-24 21:18] LABS: PCO2 Arterial 35.4 mmHg (35-45); PO2 Arterial 56.2 mmHg (80-100); pH Blood Arterial 7.54 (7.35-7.45)
[2020-06-24 23:06] LABS: Source, Urine Catheter
[2020-06-24 23:09] LABS: Bilirubin, Urine Neg (Neg); Blood, Urine Neg (Neg); Glucose Qualitative, Urine Neg (Neg); Ketones, Urine Neg (Neg); Leukocyte Esterase, Urine Neg (Neg); Nitrite, Urine Neg (Neg); Protein, Urine Neg (Neg); Urobilinogen, Urine NORM (Normal)
[2020-06-24 23:10] LABS: Appearance, Urine Clear (Clear); Color, Urine Yellow (P-Yellow)
--- NOTE | 2020-06-25 | NUR ---
PT UP TO ICU FROM ED. PT MAINLY ANSWERING QUESTIONS "YES" OR WILL REPEAT BACK WHAT YOU SAY. A FEBRILE. MAKES A LOT OF GRUNTING SOUNDS. PT SOUNDS WHEEZY, HOWEVER BASES ARE DIM. SPO2 >90% ON RA. HAS A WEAK PRODUCTIVE COUGH IN SR, SBP ELEVATED. PT HAS SCLERAL IS ICTERIC AND EDEMATOUS. PT HAS A SMALL ABRASION UNDER R ARMPIT. HE HAS A LARGE UMBILICAL HERNIA THAT IS WEEPING. PT CAME UP TO ICU WITH 2 PIV- 18G IN LAC AND IV IN R SHOULDER. BOTH ARE PATENT. NO FLUIDS RUNNING. PT IS ALKALOTIC AND HAS A HGB OF 7.4. PT HAS ORDER FOR LACTULOSE ENEMA. RECTAL TUBE INSERTED FOR ENEMA. TUBE CLAMPED. PT WAS ULTIMATELY ABLE TO PUSH RECTAL TUBE OUT ALONG WITH A LARGE BM. CALL WAS PLACED TO MICHAEL THAT THE ENEMA THROUGHT THE RECTAL TUBE FAILED AND PT COUGHED WHILE I GAVE HIM WATER TO SEE IF HE WAS ABLE TO SAFELY SWALLOW. NO NEW ORDERS RECEIVED FOR LACTULOSE ADMINISTRATION. PT WAS OPI +. ORDERS RECEIVED FOR A DOSE OF NARCAN TO SEE IF PTS MENTATION IMPROVES. STEVENSON PLACED D/T RETENTION.
--- NOTE | 2020-06-25 01:17 | NUR ---
PT SBP 160-180S. CALL PLACED TO DR. CLAYTON. ORDERS RECEIVED. MTAILDE TO PUT ORDERS IN FOR PRN HYDRALAZINE
[2020-06-25 03:13] LABS: BASOPHILS ABSOLUTE AUTO 0.02 K/mm3 (0.00-0.23); BASOPHILS PERCENT AUTO 0 % (0-2); EOSINOPHILS ABSOLUTE AUTO 0.16 K/mm3 (0.00-0.68); EOSINOPHILS PERCENT AUTO 2 % (0-6); Hemoglobin 7.1 g/dL (13.5-17.5); IMMATURE GRAN ABSOLUTE AUTO 0.03 K/mm3 (0.00-0.10); IMMATURE GRAN PERCENT AUTO 0 % (0-1); LYMPHOCYTES ABSOLUTE AUTO 1.92 K/mm3 (0.84-5.20); LYMPHOCYTES PERCENT AUTO 19 % (21-46); MONOCYTES ABSOLUTE AUTO 1.21 K/mm3 (0.16-1.47); MONOCYTES PERCENT AUTO 12 % (4-13); Mean Corpuscular HGB 25.8 pg (26.0-34.0); Mean Corpuscular HGB Conc 30.9 g/dL (31.5-36.5); Mean Corpuscular Volume 84 fL (80-100); Mean Platelet Volume 10.7 fL (9.1-12.4); NEUTROPHILS ABSOLUTE AUTO 6.54 K/mm3 (1.96-9.15); NEUTROPHILS PERCENT AUTO 66 % (41-73); Platelet Count 168 K/mm3 (150-400); RDW Coefficient Variation 19.2 % (11.7-14.2); RDW Standard Deviation 58.8 fL (35.1-46.3); Red Blood Cell Count 2.75 M/mm3 (4.30-5.90); White Blood Cell Count 9.88 K/mm3 (4.00-11.30)
[2020-06-25 03:32] LABS: Alanine Aminotransfer (ALT/SGP 41 U/L (12-78); Albumin, Blood 2.5 g/dL (3.4-5.0); Albumin/Globulin Ratio 0.7 (0.8-1.8); Alk Phos 140 U/L (50-136); Anion Gap 8 mmol/L (6-16); Aspartate Aminotrans (AST/SGOT 56 U/L (12-37); Bilirubin, Total 4.7 mg/dL (0.1-1.0); Blood Urea Nitrogen 25 mg/dL (8-24); CO2, Blood 29 mmol/L (21-32); Calcium, Blood 7.9 mg/dL (8.5-10.1); Chloride, Blood 109 mmol/L (98-108); Creatinine, Blood 0.96 mg/dL (0.60-1.20); Globulin, Blood 3.5 g/dL (2.2-4.0); Glomerular Filtration Rate >60 (60-); Glucose, Blood 92 mg/dL (70-99); Potassium, Blood 2.6 mmol/L (3.5-5.5); Sodium, Blood 146 mmol/L (136-145)
--- NOTE | 2020-06-25 04:24 | NUR ---
CALL PLACED TO DR CLAYTON RE PTS HGB OF 7.1 AND K+ OF 2.6. ORDERS RECEIVED FOR KCL 60MEQ IV X 1 AND TO DO A REPEAT H&H DRAW AT 1000.
--- NOTE | 2020-06-25 06:18 | NUR ---
SHIFT SUMMARY: PT APPEARS TO BE CLEARING MENTATION-VASQUEZ. IS ABLE TO ANSWER QUESTIONS MORE APPROPRIATELY, IS ABLE TO JOKE. HE IS NO LONGER PULLING AT LINES AND CORDS-RESTRAINTS D/C'D. SPO2 >90% ON RA. PT IS HYPERTENSIVE. HAS PRN HYDRALAZINE. SBP HAS BEEN 150-180S. HR IN THE 90S. HAD A LARGE BM. FAILED LACTULOSE ENEMA (SEE PREVIOUS NN). STEVENSON IN PLACE DRAINING LARGE AMTS OF CLEAR YELLOW URINE. K+ DROPPED THIS AM AND IS CURRENTLY BEING REPLACED VIA IV. 18G IN LAC AND IV IN R SHOULDER. K+ INFUSING THROUGH LAC. THIS MORNING PTS HGB WAS 7.1 AND K+ 2.6. PROVIDER AWARE. ORDERS ENTERED TO REPLACE K+ AND REPEAT H&H AT 1000. POSS ABD US TO DETERMINE NEED FOR PARACENTESIS TODAY. WILL PASS REPORT TO ONCOMING SHIFT
[2020-06-25 09:57] LABS: Percent Saturation 12.4 % (20.0-50.0)
--- NOTE | 2020-06-25 10:17 | NUR ---
[facility] of Care: Care assumed at 0700. Patient sleeping, but easily roused to verbal stimuli, oriented to self, place, and year, confused to exact date and reason for admission. Calm, pleasant, and cooperative with staff. Denies pain, discomfort, SOB, or dyspnea. VSS, but systolic BP in 170's-180's. x1 prn dose hydralazine given, systolic BP decreased to 150's-160's. Tolerated PO water without difficulty. Mack cath in place, draining clear yellow urine. Peripheral IV"s x2 patent and intact. Dr. Siddiqi to room this morning, received orders to advance diet as tolerated and transfer patient to PCU status. Will continue to monitor.
--- NOTE | 2020-06-25 15:57 | NUR ---
Patient left facility AMA: Early this morning, patient became more alert and fully oriented (a/o x4). Patient then began saying he was going home today. Patient then educated on need to remain in hospital until discharged by the physician, i.e safety, ensuring lab values continue to improve, symptom management, discharge planning. This RN also asked if the patient had needs or concerns that were not being met, to which the patient responded "No, i just want to go home". Patient continued to be addiment that he was going home, stating "ill take my medications at home, I am ready to go". Call placed to Dr. Siddiqi, informed that as long as the patient is fully alert and oriented, he is allowed to leave hospital AMA. Patient then phoned his father and calmly waited in chair in room for his father's arrival. Peripheral IV's x2 removed by Mary GALLOWAY. AMA paperwork signed, risk vs. benefits reviewed with patient. Patient transferred via w/c to [facility].
== END 2020-06-25 15:40 | disposition left against medical advice (07) | DRG 441 ==
LOC: ER 14:31 → ICUW 14:32 → UNDODEPER 22:44 → ER 22:44 → ICUW 22:50
PROVIDERS: Emergency Medicine; Internal Medicine; Nurse Practitioner Acute Care; ADMIT Family Medicine
DX: K72.00 Acute and subacute hepatic failure without coma (principal); G92 Toxic encephalopathy; K70.31 Alcoholic cirrhosis of liver with ascites; D64.9 Anemia, unspecified; K21.9 Gastro-esophageal reflux disease without esophagitis
CPT/HCPCS: 36415; 36600; 51703; 70450; 76705; 80053; 81003; 82140; 82728; 82803; 82947; 83540; 83550; 85025; 85610; 93005; 93010; 99285-25; C9113; G0480; J0360; J1940; J2310; J3480; J7512

== ENCOUNTER 2020-07-08 16:32 | Observation (INO) | payer OTHER ==
[~2020-07-08] VITALS: Ht 185.4 cm; Wt 162.4 kg
[~2020-07-08 16:32] MED LIST changes: +OMEP20ER PO; +PRED20 PO
[2020-07-08 17:19] LABS: BASOPHILS ABSOLUTE AUTO 0.03 K/mm3 (0.00-0.23); BASOPHILS PERCENT AUTO 1 % (0-2); EOSINOPHILS ABSOLUTE AUTO 0.22 K/mm3 (0.00-0.68); EOSINOPHILS PERCENT AUTO 5 % (0-6); Hematocrit 19.9 % (37.0-53.0); Hemoglobin 6.2 g/dL (13.5-17.5); IMMATURE GRAN ABSOLUTE AUTO 0.01 K/mm3 (0.00-0.10); IMMATURE GRAN PERCENT AUTO 0 % (0-1); LYMPHOCYTES ABSOLUTE AUTO 0.79 K/mm3 (0.84-5.20); LYMPHOCYTES PERCENT AUTO 18 % (21-46); MONOCYTES ABSOLUTE AUTO 0.55 K/mm3 (0.16-1.47); MONOCYTES PERCENT AUTO 13 % (4-13); Mean Corpuscular HGB 26.6 pg (26.0-34.0); Mean Corpuscular HGB Conc 31.2 g/dL (31.5-36.5); Mean Corpuscular Volume 85 fL (80-100); Mean Platelet Volume 12.8 fL (9.1-12.4); NEUTROPHILS ABSOLUTE AUTO 2.69 K/mm3 (1.96-9.15); NEUTROPHILS PERCENT AUTO 63 % (41-73); Platelet Count 74 K/mm3 (150-400); RDW Coefficient Variation 21.6 % (11.7-14.2); RDW Standard Deviation 65.4 fL (35.1-46.3); Red Blood Cell Count 2.33 M/mm3 (4.30-5.90); White Blood Cell Count 4.29 K/mm3 (4.00-11.30)
[2020-07-08 17:31] LABS: International Normalized Ratio 1.5; Prothrombin Time Results 15.7 Sec (9.7-11.5)
[2020-07-08 17:41] LABS: Alanine Aminotransfer (ALT/SGP 30 U/L (12-78); Albumin, Blood 2.4 g/dL (3.4-5.0); Albumin/Globulin Ratio 0.7 (0.8-1.8); Alk Phos 168 U/L (50-136); Anion Gap 8 mmol/L (6-16); Aspartate Aminotrans (AST/SGOT 44 U/L (12-37); Bilirubin, Total 4.8 mg/dL (0.1-1.0); Blood Urea Nitrogen 14 mg/dL (8-24); Bun/Creatinine Ratio 14.9 (12.0-20.0); CO2, Blood 29 mmol/L (21-32); Calcium, Blood 7.8 mg/dL (8.5-10.1); Chloride, Blood 102 mmol/L (98-108); Creatinine, Blood 0.94 mg/dL (0.60-1.20); Globulin, Blood 3.4 g/dL (2.2-4.0); Glomerular Filtration Rate >60 (60-); Glucose, Blood 109 mg/dL (70-99); Potassium, Blood 2.7 mmol/L (3.5-5.5); Sodium, Blood 139 mmol/L (136-145); Total Protein, Blood 5.8 g/dL (6.4-8.2)
[2020-07-08] MEDS ORDERED: FERSU300 PO (21:41)
[2020-07-08] MEDS ORDERED: LACT10SY PO (21:41)
[2020-07-08] MEDS ORDERED: ASCO500 PO (21:43)
[2020-07-08] MEDS ORDERED: VOLTAREN ARTHRI20 GM TOP (21:43)
[2020-07-08] MEDS ORDERED: MECL25 PO (21:44)
[2020-07-08 22:11] LABS: International Normalized Ratio 1.52; Prothrombin Time Results 15.9 Sec (9.7-11.5)
[2020-07-09 06:56] LABS: BASOPHILS ABSOLUTE AUTO 0.03 K/mm3 (0.00-0.23); BASOPHILS PERCENT AUTO 1 % (0-2); EOSINOPHILS ABSOLUTE AUTO 0.21 K/mm3 (0.00-0.68); EOSINOPHILS PERCENT AUTO 6 % (0-6); Hematocrit 20.7 % (37.0-53.0); Hemoglobin 6.4 g/dL (13.5-17.5); IMMATURE GRAN PERCENT AUTO 0 % (0-1); LYMPHOCYTES ABSOLUTE AUTO 0.79 K/mm3 (0.84-5.20); LYMPHOCYTES PERCENT AUTO 21 % (21-46); MONOCYTES ABSOLUTE AUTO 0.52 K/mm3 (0.16-1.47); MONOCYTES PERCENT AUTO 14 % (4-13); Mean Corpuscular HGB 26.7 pg (26.0-34.0); Mean Corpuscular HGB Conc 30.9 g/dL (31.5-36.5); Mean Corpuscular Volume 86 fL (80-100); Mean Platelet Volume 11.4 fL (9.1-12.4); NEUTROPHILS ABSOLUTE AUTO 2.14 K/mm3 (1.96-9.15); NEUTROPHILS PERCENT AUTO 58 % (41-73); Platelet Count 69 K/mm3 (150-400); RDW Coefficient Variation 21.1 % (11.7-14.2); RDW Standard Deviation 64.4 fL (35.1-46.3); White Blood Cell Count 3.69 K/mm3 (4.00-11.30)
[2020-07-09 07:14] LABS: Alanine Aminotransfer (ALT/SGP 24 U/L (12-78); Albumin/Globulin Ratio 0.6 (0.8-1.8); Alk Phos 152 U/L (50-136); Anion Gap 6 mmol/L (6-16); Aspartate Aminotrans (AST/SGOT 36 U/L (12-37); Blood Urea Nitrogen 13 mg/dL (8-24); Bun/Creatinine Ratio 15.3 (12.0-20.0); CO2, Blood 29 mmol/L (21-32); Calcium, Blood 7.5 mg/dL (8.5-10.1); Chloride, Blood 104 mmol/L (98-108); Creatinine, Blood 0.85 mg/dL (0.60-1.20); Globulin, Blood 3.1 g/dL (2.2-4.0); Glomerular Filtration Rate >60 (60-); Glucose, Blood 95 mg/dL (70-99); Sodium, Blood 139 mmol/L (136-145); Total Protein, Blood 5.1 g/dL (6.4-8.2)
[2020-07-09 12:48] LABS: Anion Gap 5 mmol/L (6-16); Blood Urea Nitrogen 12 mg/dL (8-24); Bun/Creatinine Ratio 13.8 (12.0-20.0); CO2, Blood 31 mmol/L (21-32); Calcium, Blood 7.5 mg/dL (8.5-10.1); Chloride, Blood 104 mmol/L (98-108); Creatinine, Blood 0.87 mg/dL (0.60-1.20); Glomerular Filtration Rate >60 (60-); Glucose, Blood 100 mg/dL (70-99); Sodium, Blood 140 mmol/L (136-145)
[2020-07-09 14:37] LABS: Percent Saturation 21.2 % (20.0-50.0)
[2020-07-10 05:22] LABS: BASOPHILS ABSOLUTE AUTO 0.02 K/mm3 (0.00-0.23); BASOPHILS PERCENT AUTO 1 % (0-2); EOSINOPHILS PERCENT AUTO 5 % (0-6); Hematocrit 22.3 % (37.0-53.0); IMMATURE GRAN ABSOLUTE AUTO 0.01 K/mm3 (0.00-0.10); IMMATURE GRAN PERCENT AUTO 0 % (0-1); LYMPHOCYTES ABSOLUTE AUTO 0.94 K/mm3 (0.84-5.20); LYMPHOCYTES PERCENT AUTO 23 % (21-46); MONOCYTES ABSOLUTE AUTO 0.59 K/mm3 (0.16-1.47); MONOCYTES PERCENT AUTO 14 % (4-13); Mean Corpuscular HGB Conc 31.4 g/dL (31.5-36.5); Mean Corpuscular Volume 86 fL (80-100); Mean Platelet Volume 11.5 fL (9.1-12.4); NEUTROPHILS ABSOLUTE AUTO 2.37 K/mm3 (1.96-9.15); NEUTROPHILS PERCENT AUTO 57 % (41-73); Platelet Count 71 K/mm3 (150-400); RDW Coefficient Variation 21.7 % (11.7-14.2); RDW Standard Deviation 63.2 fL (35.1-46.3); Red Blood Cell Count 2.59 M/mm3 (4.30-5.90); White Blood Cell Count 4.13 K/mm3 (4.00-11.30)
[2020-07-10 05:48] LABS: Alanine Aminotransfer (ALT/SGP 25 U/L (12-78); Albumin, Blood 2.2 g/dL (3.4-5.0); Albumin/Globulin Ratio 0.7 (0.8-1.8); Alk Phos 143 U/L (50-136); Anion Gap 6 mmol/L (6-16); Aspartate Aminotrans (AST/SGOT 35 U/L (12-37); Bilirubin, Total 5.3 mg/dL (0.1-1.0); Blood Urea Nitrogen 11 mg/dL (8-24); Bun/Creatinine Ratio 13.8 (12.0-20.0); CO2, Blood 31 mmol/L (21-32); Calcium, Blood 7.8 mg/dL (8.5-10.1); Chloride, Blood 105 mmol/L (98-108); Globulin, Blood 3.2 g/dL (2.2-4.0); Glomerular Filtration Rate >60 (60-); Glucose, Blood 91 mg/dL (70-99); Potassium, Blood 2.8 mmol/L (3.5-5.5); Sodium, Blood 142 mmol/L (136-145); Total Protein, Blood 5.4 g/dL (6.4-8.2)
[2020-07-10] MEDS ORDERED: SPIR25 PO (14:37)
[2020-07-10] MEDS ORDERED: POTCHL20ER PO (14:37)
== END 2020-07-10 15:04 | disposition home or self-care (01) ==
LOC: ER 16:32 → MEDS 19:33
PROVIDERS: Emergency Medicine; Internal Medicine; Nurse Practitioner Acute Care; Physician Assistant; ADMIT Internal Medicine
DX: E87.6 Hypokalemia (principal); K70.31 Alcoholic cirrhosis of liver with ascites; K70.40 Alcoholic hepatic failure without coma; I85.10 Secondary esophageal varices without bleeding; K21.9 Gastro-esophageal reflux disease without esophagitis; D63.8 Anemia in other chronic diseases classified elsewhere; Z88.5 Allergy status to narcotic agent; G92 Toxic encephalopathy; Z79.899 Other long term (current) drug therapy
CPT/HCPCS: 36415; 36430; 49083; 80048; 80053; 82140; 82728; 83540; 83550; 83735; 83880; 85025; 85610; 85730; 86850; 86900; 86901; 86923; 93005; 93010; 96361; 96374; 99284-25; A9270; J3480; J7030; P9016; P9046

== ENCOUNTER 2020-07-29 13:47 | Day surgery (SDC) | payer OTHER ==
[~2020-07-29 13:47] MED LIST changes: +ASCO500 PO; +POTCHL20ER PO; +SPIR25 PO; +VOLTAREN ARTHRI20 GM TOP
[2020-07-31] MEDS ORDERED: BENADRYL25 MG PO (10:07)
[2020-07-31] MEDS ORDERED: EPLE25 PO (10:07)
== END 2020-07-30 22:43 | disposition home or self-care (01) ==
LOC: US 13:47 → EDSTATUS 14:00 → US 14:00
DX: K70.31 Alcoholic cirrhosis of liver with ascites (principal); E87.6 Hypokalemia; K21.9 Gastro-esophageal reflux disease without esophagitis; Z88.5 Allergy status to narcotic agent; Z79.899 Other long term (current) drug therapy
CPT/HCPCS: 76705

== ENCOUNTER 2020-07-31 09:34 | Inpatient (IN) | payer OTHER ==
[~2020-07-31] VITALS: Ht 185.4 cm; Wt 124.0 kg
[2020-07-31] MEDS ORDERED: EPLE25 PO (10:07)
[2020-07-31] MEDS ORDERED: BENADRYL25 MG PO (10:07)
[2020-07-31 11:18] LABS: BASOPHILS ABSOLUTE AUTO 0.04 K/mm3 (0.00-0.23); BASOPHILS PERCENT AUTO 1 % (0-2); EOSINOPHILS ABSOLUTE AUTO 0.41 K/mm3 (0.00-0.68); EOSINOPHILS PERCENT AUTO 9 % (0-6); Hematocrit 27.6 % (37.0-53.0); Hemoglobin 8.7 g/dL (13.5-17.5); IMMATURE GRAN ABSOLUTE AUTO 0.02 K/mm3 (0.00-0.10); IMMATURE GRAN PERCENT AUTO 0 % (0-1); LYMPHOCYTES ABSOLUTE AUTO 0.94 K/mm3 (0.84-5.20); LYMPHOCYTES PERCENT AUTO 20 % (21-46); MONOCYTES ABSOLUTE AUTO 0.63 K/mm3 (0.16-1.47); MONOCYTES PERCENT AUTO 13 % (4-13); Mean Corpuscular HGB 29.8 pg (26.0-34.0); Mean Corpuscular HGB Conc 31.5 g/dL (31.5-36.5); Mean Corpuscular Volume 95 fL (80-100); Mean Platelet Volume 10.3 fL (9.1-12.4); NEUTROPHILS ABSOLUTE AUTO 2.65 K/mm3 (1.96-9.15); NEUTROPHILS PERCENT AUTO 57 % (41-73); Platelet Count 88 K/mm3 (150-400); RDW Coefficient Variation 23.1 % (11.7-14.2); RDW Standard Deviation 79.8 fL (35.1-46.3); Red Blood Cell Count 2.92 M/mm3 (4.30-5.90); White Blood Cell Count 4.69 K/mm3 (4.00-11.30)
[2020-07-31 11:35] LABS: Alanine Aminotransfer (ALT/SGP 24 U/L (12-78); Albumin, Blood 2.3 g/dL (3.4-5.0); Albumin/Globulin Ratio 0.7 (0.8-1.8); Alk Phos 169 U/L (50-136); Anion Gap 8 mmol/L (6-16); Aspartate Aminotrans (AST/SGOT 54 U/L (12-37); Bilirubin, Total 2.6 mg/dL (0.1-1.0); Blood Urea Nitrogen 13 mg/dL (8-24); Bun/Creatinine Ratio 17.3 (12.0-20.0); CO2, Blood 26 mmol/L (21-32); Calcium, Blood 7.7 mg/dL (8.5-10.1); Chloride, Blood 107 mmol/L (98-108); Creatinine, Blood 0.75 mg/dL (0.60-1.20); Globulin, Blood 3.5 g/dL (2.2-4.0); Glomerular Filtration Rate >60 (60-); Glucose, Blood 79 mg/dL (70-99); Potassium, Blood 3.4 mmol/L (3.5-5.5); Sodium, Blood 141 mmol/L (136-145); Total Protein, Blood 5.8 g/dL (6.4-8.2)
[2020-07-31 14:58] LABS: International Normalized Ratio 1.61; Prothrombin Time Results 16.8 Sec (9.7-11.5)
--- NOTE | 2020-07-31 17:25 | NUR ---
DRAINAGE PT IS HAVING SEROUS DRAINAGE FROM [place] UMBILICAL HERNIA. 4X4 GAUZE AND TEGADERM DRESSING PLACED.
--- NOTE | 2020-07-31 19:30 | NUR ---
SHIFT SUMMARY PT ARRIVED AT SURG UNIT IN A WHEELCHAIR FROM ED AT 1700 ALERT AND ORIENTED X 4. PT C/O ABD PAIN WITH WEEPING UMBILICAL REGION WHICH WAS SUTURED BY DR. JUAN AT THE ED PRIOR TO ARRIVAL. PT HAD CT SCAN ABD - FINDINGS ARE: ASCITES, SOFT TISSUE EDEMA, HEPATIC CIRRHOSIS AND CHOLESTIASIS. PT HAS YELLOW SCLERA EYES. PT DENIES NAUSEA, NO VOMITING, NO CHEST PAIN/PRESSURE, NO DIZZINESS, NO NUMBNESS, NO TINGLING AND SOB. HE HAS AN 20 GAUGE IV ON LEFT FOREARM. PT IS PLEASANT AND COOPERATIVE. HX OF ALCOHOLISM BUT NO SIGNS OF INTOXICATION. HE REPORTS LAST ALCOHOL INTAKE IN 06/2019.
[2020-08-01 04:54] LABS: Hematocrit 25.2 % (37.0-53.0); Mean Corpuscular HGB 29.3 pg (26.0-34.0); Mean Corpuscular HGB Conc 31.7 g/dL (31.5-36.5); Mean Corpuscular Volume 92 fL (80-100); Mean Platelet Volume 10.8 fL (9.1-12.4); Platelet Count 79 K/mm3 (150-400); RDW Standard Deviation 76.7 fL (35.1-46.3); Red Blood Cell Count 2.73 M/mm3 (4.30-5.90); White Blood Cell Count 3.55 K/mm3 (4.00-11.30)
[2020-08-01 05:11] LABS: Anion Gap 6 mmol/L (6-16); Blood Urea Nitrogen 12 mg/dL (8-24); Bun/Creatinine Ratio 16.4 (12.0-20.0); CO2, Blood 28 mmol/L (21-32); Calcium, Blood 7.7 mg/dL (8.5-10.1); Chloride, Blood 108 mmol/L (98-108); Creatinine, Blood 0.73 mg/dL (0.60-1.20); Glomerular Filtration Rate >60 (60-); Glucose, Blood 89 mg/dL (70-99); Potassium, Blood 3.2 mmol/L (3.5-5.5); Sodium, Blood 142 mmol/L (136-145)
--- NOTE | 2020-08-01 07:19 | NUR ---
SHIFT SUMMARY UMBILICAL HERNIA REPAIR, A/O X4, VSS, TOLERATING PO, VOIDING, INDEPENDENT IN ROOM, SIGNIFICANT LIVER HX W/ ASCITIES, PAIN MANAGED PER EMAR. CALL LIGHT IN REACH, WILL CONTINUE TO MONITOR AND REPORT TO ONCOMING DAY RN.
--- NOTE | 2020-08-01 07:20 | NUR ---
recvd report from previous RN Angelo, pt sleeping in bed, bed in lowest position, bed rails up x 2, call light within reach
--- NOTE | 2020-08-01 11:00 | NUR ---
dr brar rounding; orders for aggressive diuresis and repeat labs, ostomy appliance to be placed over umbilical hernia to document fluid output. notified hospitalist of orders
--- NOTE | 2020-08-01 11:34 | NUR ---
placed ostomy appliance over umbilical hernia site
--- NOTE | 2020-08-01 16:15 | NUR ---
SHIFT SUMMARY: VSS, NO ACUTE CHANGES, PT A/O X 5, PLEASANT/COOPERATIVE. TOLERATING PO INTAKE WITH NO N/V. PT VOIDING FOLLOWING DIURESIS PER MAR, URINAL AND INSTRUCTIONS GIVEN TO COUNT I/O YET PT HAS VOIDED IN TOILET X 2. PT EDUCATED TO VOID IN URINAL FOR COUNTING. PROVIDED PT WITH OSTOMY APPLIANCE TO UMBILICAL HERNIA SITE TO CAPTURE DRAINAGE.
[2020-08-02 04:19] LABS: BASOPHILS ABSOLUTE AUTO 0.04 K/mm3 (0.00-0.23); BASOPHILS PERCENT AUTO 1 % (0-2); EOSINOPHILS ABSOLUTE AUTO 0.33 K/mm3 (0.00-0.68); EOSINOPHILS PERCENT AUTO 9 % (0-6); Hematocrit 24.6 % (37.0-53.0); Hemoglobin 7.9 g/dL (13.5-17.5); IMMATURE GRAN ABSOLUTE AUTO 0.01 K/mm3 (0.00-0.10); IMMATURE GRAN PERCENT AUTO 0 % (0-1); LYMPHOCYTES ABSOLUTE AUTO 0.75 K/mm3 (0.84-5.20); LYMPHOCYTES PERCENT AUTO 21 % (21-46); MONOCYTES ABSOLUTE AUTO 0.49 K/mm3 (0.16-1.47); MONOCYTES PERCENT AUTO 13 % (4-13); Mean Corpuscular HGB 29.6 pg (26.0-34.0); Mean Corpuscular HGB Conc 32.1 g/dL (31.5-36.5); Mean Corpuscular Volume 92 fL (80-100); Mean Platelet Volume 10.1 fL (9.1-12.4); NEUTROPHILS ABSOLUTE AUTO 2.03 K/mm3 (1.96-9.15); NEUTROPHILS PERCENT AUTO 56 % (41-73); Platelet Count 73 K/mm3 (150-400); RDW Coefficient Variation 22.8 % (11.7-14.2); RDW Standard Deviation 76.7 fL (35.1-46.3); Red Blood Cell Count 2.67 M/mm3 (4.30-5.90); White Blood Cell Count 3.65 K/mm3 (4.00-11.30)
[2020-08-02 04:37] LABS: Alanine Aminotransfer (ALT/SGP 26 U/L (12-78); Albumin, Blood 2.2 g/dL (3.4-5.0); Albumin/Globulin Ratio 0.7 (0.8-1.8); Alk Phos 149 U/L (50-136); Anion Gap 6 mmol/L (6-16); Aspartate Aminotrans (AST/SGOT 41 U/L (12-37); Bilirubin, Total 2.2 mg/dL (0.1-1.0); Blood Urea Nitrogen 11 mg/dL (8-24); Bun/Creatinine Ratio 16.6 (12.0-20.0); CO2, Blood 28 mmol/L (21-32); Calcium, Blood 7.8 mg/dL (8.5-10.1); Chloride, Blood 107 mmol/L (98-108); Creatinine, Blood 0.66 mg/dL (0.60-1.20); Globulin, Blood 3.1 g/dL (2.2-4.0); Glomerular Filtration Rate >60 (60-); Glucose, Blood 97 mg/dL (70-99); Potassium, Blood 3.1 mmol/L (3.5-5.5); Sodium, Blood 141 mmol/L (136-145); Total Protein, Blood 5.3 g/dL (6.4-8.2)
--- NOTE | 2020-08-02 05:05 | NUR ---
SHIFT SUMMARY: INOCENCIA IS A&OX4, INDEPENDENT IN THE ROOM. VSS, NO ACUTE EVENTS OVERNIGHT. OSTOMY APPLIANCE INTACT OVER UMBILICAL HERNIA, DRAINING CLEAR, YELLOW FLUID. HE IS USING THE URINAL WITHOUT DIFFICULTY. HE DECLINED THE LACTULOSE THIS EVENING D/T HAVING MULTIPLE SOFT BOWEL MOVEMENTS. HIS HEMOGLOBIN IS 7.9 AND THE POTASSIUM WAS 3.1 THIS MORNING. ORDER OBTAINED FROM ON-CALL PHYSICIAN FOR ONE DOSE OF IV KCL. HE IS TOLERATING PO INTAKE WELL. HE USES HIS CALL LIGHT APPROPRIATELY. HE IS LYING IN BED WITH HIS CALL LIGHT IN REACH. WILL REPORT TO DAY SHIFT RN.
--- NOTE | 2020-08-02 13:15 | NUR ---
SHIFT SUMMARY PT A&OX4, VSS, LEFT FLOOR WITH ALL PERSONAL POSSESSIONS AND DC PACKET TO GO HOME WITH FAMILY. DC INSTRUCTIONS PROVIDED. PT REP UNDERSTANDING THOSE INSTRUCTIONS INCLUDING FU WITH DR JUAN, DR MCMAHON, HOW TO CHANGE/EMPTY APPLIANCE. IV DC'D.
== END 2020-08-02 13:20 | disposition home or self-care (01) | DRG 394 ==
LOC: ER 09:34 → SURS 15:36
PROVIDERS: Emergency Medicine; Family Medicine; Nurse Practitioner Acute Care; ADMIT Internal Medicine
PROC: 0HQ7XZZ Repair Abdomen Skin, External Approach (ICD-10-PCS; principal; 2020-07-31)
DX: K42.9 Umbilical hernia without obstruction or gangrene (principal); K76.6 Portal hypertension; D61.818 Other pancytopenia; E87.6 Hypokalemia; K21.9 Gastro-esophageal reflux disease without esophagitis; K72.90 Hepatic failure, unspecified without coma; D50.9 Iron deficiency anemia, unspecified; K70.31 Alcoholic cirrhosis of liver with ascites; F10.21 Alcohol dependence, in remission
CPT/HCPCS: 36415; 74177; 80048; 80053; 83605; 85025; 85027; 85610; 96365-59; 99285-25; A9270; G0480; J0696; J1940; J3480; J7050; Q9967

== ENCOUNTER 2020-08-11 00:46 | Day surgery (SDC) | payer OTHER ==
[~2020-08-11 00:46] MED LIST changes: +BENADRYL25 MG PO; +EPLE25 PO
== END 2020-08-11 22:45 | disposition home or self-care (01) ==
LOC: WOUND 00:46
DX: K42.9 Umbilical hernia without obstruction or gangrene (principal); K72.90 Hepatic failure, unspecified without coma; Z76.82 Awaiting organ transplant status; Z88.5 Allergy status to narcotic agent
CPT/HCPCS: G0463

== ENCOUNTER 2020-08-22 15:08 | Emergency (ER) | payer OTHER ==
[~2020-08-22] VITALS: Ht 185.4 cm; Wt 136.1 kg
[~2020-08-22 15:08] MED LIST changes: -EPLE25 PO; +Inspra50 MG PO; -POTCHL20ER PO; -VOLTAREN ARTHRI20 GM TOP
[2020-08-22 15:40] LABS: BASOPHILS ABSOLUTE AUTO 0.05 K/mm3 (0.00-0.23); BASOPHILS PERCENT AUTO 1 % (0-2); EOSINOPHILS PERCENT AUTO 26 % (0-6); Hematocrit 25.6 % (37.0-53.0); Hemoglobin 8.4 g/dL (13.5-17.5); IMMATURE GRAN ABSOLUTE AUTO 0.01 K/mm3 (0.00-0.10); IMMATURE GRAN PERCENT AUTO 0 % (0-1); LYMPHOCYTES ABSOLUTE AUTO 0.75 K/mm3 (0.84-5.20); LYMPHOCYTES PERCENT AUTO 16 % (21-46); MONOCYTES ABSOLUTE AUTO 0.51 K/mm3 (0.16-1.47); MONOCYTES PERCENT AUTO 11 % (4-13); Mean Corpuscular HGB 32.3 pg (26.0-34.0); Mean Corpuscular HGB Conc 32.8 g/dL (31.5-36.5); Mean Corpuscular Volume 99 fL (80-100); Mean Platelet Volume 11.4 fL (9.1-12.4); NEUTROPHILS ABSOLUTE AUTO 2.19 K/mm3 (1.96-9.15); NEUTROPHILS PERCENT AUTO 47 % (41-73); Platelet Count 87 K/mm3 (150-400); RDW Coefficient Variation 21.6 % (11.7-14.2); RDW Standard Deviation 78.6 fL (35.1-46.3); White Blood Cell Count 4.71 K/mm3 (4.00-11.30)
[2020-08-22 15:45] LABS: Source, Urine Clean Catch
[2020-08-22 15:49] LABS: Appearance, Urine Clear (Clear); Bilirubin, Urine Neg (Neg); Blood, Urine Neg (Neg); Color, Urine Yellow (P-Yellow); Glucose Qualitative, Urine Neg (Neg); Ketones, Urine Neg (Neg); Leukocyte Esterase, Urine Neg (Neg); Nitrite, Urine Neg (Neg); Protein, Urine Neg (Neg); Specific Gravity, Urine 1.005 (1.003-1.022); Urobilinogen, Urine 2+ (Normal)
[2020-08-22] MEDS ORDERED: POTASSIUM GLUC500 M1 PO (16:00)
[2020-08-22 16:03] LABS: Alanine Aminotransfer (ALT/SGP 32 U/L (12-78); Albumin, Blood 2.4 g/dL (3.4-5.0); Albumin/Globulin Ratio 0.7 (0.8-1.8); Alk Phos 163 U/L (50-136); Anion Gap 6 mmol/L (6-16); Aspartate Aminotrans (AST/SGOT 46 U/L (12-37); Bilirubin, Total 2.8 mg/dL (0.1-1.0); Blood Urea Nitrogen 11 mg/dL (8-24); Bun/Creatinine Ratio 14.9 (12.0-20.0); CO2, Blood 26 mmol/L (21-32); Calcium, Blood 8.1 mg/dL (8.5-10.1); Chloride, Blood 109 mmol/L (98-108); Creatinine, Blood 0.74 mg/dL (0.60-1.20); Globulin, Blood 3.4 g/dL (2.2-4.0); Glomerular Filtration Rate >60 (60-); Glucose, Blood 126 mg/dL (70-99); Potassium, Blood 3.5 mmol/L (3.5-5.5); Sodium, Blood 141 mmol/L (136-145); Total Protein, Blood 5.8 g/dL (6.4-8.2)
[2020-08-22 18:01] LABS: International Normalized Ratio 1.37; Prothrombin Time Results 14.4 Sec (9.7-11.5)
[2020-08-22] MEDS ORDERED: POTCHL20ER PO (18:05)
[2020-08-22] MEDS ORDERED: HYDHCL25 PO (18:05)
[2020-08-22] MEDS ORDERED: Hydrocortiso453.6 GM TOP (18:06)
[2020-08-22] MEDS ORDERED: VOLTAREN ARTHRI20 GM TOP (18:07)
== END 2020-08-22 18:04 | disposition home or self-care (01) ==
LOC: ER 15:08
PROVIDERS: Nurse Practitioner Acute Care; Physician Assistant
DX: E72.20 Disorder of urea cycle metabolism, unspecified (principal); K70.30 Alcoholic cirrhosis of liver without ascites; F10.20 Alcohol dependence, uncomplicated; Z79.899 Other long term (current) drug therapy; Z88.5 Allergy status to narcotic agent
CPT/HCPCS: 36415; 80053; 81003; 82140; 85025; 85610; 99283

== ENCOUNTER 2020-08-28 09:03 | Inpatient (IN) | payer OTHER ==
[~2020-08-28] VITALS: Ht 182.9 cm; Wt 129.4 kg
[~2020-08-28 09:03] MED LIST changes: +HYDHCL25 PO; +Hydrocortiso453.6 GM TOP; +POTASSIUM GLUC500 M1 PO; +POTCHL20ER PO; +VOLTAREN ARTHRI20 GM TOP
[2020-08-28 09:28] LABS: BASOPHILS ABSOLUTE AUTO 0.05 K/mm3 (0.00-0.23); BASOPHILS PERCENT AUTO 1 % (0-2); EOSINOPHILS ABSOLUTE AUTO 1.17 K/mm3 (0.00-0.68); EOSINOPHILS PERCENT AUTO 16 % (0-6); Hematocrit 26.1 % (37.0-53.0); Hemoglobin 8.7 g/dL (13.5-17.5); IMMATURE GRAN ABSOLUTE AUTO 0.04 K/mm3 (0.00-0.10); IMMATURE GRAN PERCENT AUTO 1 % (0-1); LYMPHOCYTES ABSOLUTE AUTO 0.82 K/mm3 (0.84-5.20); LYMPHOCYTES PERCENT AUTO 11 % (21-46); MONOCYTES ABSOLUTE AUTO 0.59 K/mm3 (0.16-1.47); MONOCYTES PERCENT AUTO 8 % (4-13); Mean Corpuscular HGB 32.7 pg (26.0-34.0); Mean Corpuscular HGB Conc 33.3 g/dL (31.5-36.5); Mean Corpuscular Volume 98 fL (80-100); Mean Platelet Volume 10.4 fL (9.1-12.4); NEUTROPHILS ABSOLUTE AUTO 4.52 K/mm3 (1.96-9.15); NEUTROPHILS PERCENT AUTO 63 % (41-73); Platelet Count 97 K/mm3 (150-400); RDW Coefficient Variation 20.4 % (11.7-14.2); RDW Standard Deviation 74.2 fL (35.1-46.3); Red Blood Cell Count 2.66 M/mm3 (4.30-5.90); White Blood Cell Count 7.19 K/mm3 (4.00-11.30)
[2020-08-28 09:43] LABS: International Normalized Ratio 1.36; Prothrombin Time Results 14.3 Sec (9.7-11.5)
[2020-08-28 09:44] LABS: Alanine Aminotransfer (ALT/SGP 32 U/L (12-78); Albumin, Blood 2.6 g/dL (3.4-5.0); Albumin/Globulin Ratio 0.8 (0.8-1.8); Alk Phos 167 U/L (50-136); Anion Gap 8 mmol/L (6-16); Aspartate Aminotrans (AST/SGOT 48 U/L (12-37); Bilirubin, Total 3.4 mg/dL (0.1-1.0); Blood Urea Nitrogen 14 mg/dL (8-24); Bun/Creatinine Ratio 20.8 (12.0-20.0); CO2, Blood 24 mmol/L (21-32); Calcium, Blood 8.6 mg/dL (8.5-10.1); Chloride, Blood 112 mmol/L (98-108); Creatinine, Blood 0.67 mg/dL (0.60-1.20); Globulin, Blood 3.4 g/dL (2.2-4.0); Glomerular Filtration Rate >60 (60-); Glucose, Blood 105 mg/dL (70-99); Potassium, Blood 3.9 mmol/L (3.5-5.5); Sodium, Blood 144 mmol/L (136-145)
[2020-08-28 10:17] LABS: Source, Urine Catheter
[2020-08-28 10:24] LABS: Bilirubin, Urine Neg (Neg); Blood, Urine Neg (Neg); Glucose Qualitative, Urine Neg (Neg); Ketones, Urine Neg (Neg); Leukocyte Esterase, Urine Neg (Neg); Nitrite, Urine Neg (Neg); Protein, Urine Neg (Neg); Specific Gravity, Urine 1.005 (1.003-1.022); Urobilinogen, Urine 2+ (Normal)
[2020-08-28 10:31] LABS: Appearance, Urine Clear (Clear); Color, Urine Yellow (P-Yellow)
[2020-08-29 04:20] LABS: BASOPHILS ABSOLUTE AUTO 0.06 K/mm3 (0.00-0.23); BASOPHILS PERCENT AUTO 1 % (0-2); EOSINOPHILS ABSOLUTE AUTO 1.08 K/mm3 (0.00-0.68); EOSINOPHILS PERCENT AUTO 16 % (0-6); Hematocrit 25.9 % (37.0-53.0); Hemoglobin 8.4 g/dL (13.5-17.5); IMMATURE GRAN ABSOLUTE AUTO 0.01 K/mm3 (0.00-0.10); IMMATURE GRAN PERCENT AUTO 0 % (0-1); LYMPHOCYTES ABSOLUTE AUTO 1.33 K/mm3 (0.84-5.20); LYMPHOCYTES PERCENT AUTO 20 % (21-46); MONOCYTES ABSOLUTE AUTO 0.69 K/mm3 (0.16-1.47); MONOCYTES PERCENT AUTO 10 % (4-13); Mean Corpuscular HGB 32.2 pg (26.0-34.0); Mean Corpuscular HGB Conc 32.4 g/dL (31.5-36.5); Mean Corpuscular Volume 99 fL (80-100); NEUTROPHILS ABSOLUTE AUTO 3.46 K/mm3 (1.96-9.15); NEUTROPHILS PERCENT AUTO 52 % (41-73); RDW Coefficient Variation 20.6 % (11.7-14.2); RDW Standard Deviation 74.9 fL (35.1-46.3); Red Blood Cell Count 2.61 M/mm3 (4.30-5.90); White Blood Cell Count 6.63 K/mm3 (4.00-11.30)
[2020-08-29 04:24] LABS: Platelet Count 82 K/mm3 (150-400)
[2020-08-29 04:32] LABS: International Normalized Ratio 1.41; Prothrombin Time Results 14.8 Sec (9.7-11.5)
[2020-08-29 04:43] LABS: Alanine Aminotransfer (ALT/SGP 29 U/L (12-78); Albumin, Blood 2.6 g/dL (3.4-5.0); Albumin/Globulin Ratio 0.8 (0.8-1.8); Alk Phos 150 U/L (50-136); Anion Gap 8 mmol/L (6-16); Aspartate Aminotrans (AST/SGOT 44 U/L (12-37); Bilirubin, Total 3.9 mg/dL (0.1-1.0); Blood Urea Nitrogen 11 mg/dL (8-24); Bun/Creatinine Ratio 15.4 (12.0-20.0); CO2, Blood 23 mmol/L (21-32); Calcium, Blood 8.2 mg/dL (8.5-10.1); Chloride, Blood 112 mmol/L (98-108); Creatinine, Blood 0.71 mg/dL (0.60-1.20); Globulin, Blood 3.2 g/dL (2.2-4.0); Glomerular Filtration Rate >60 (60-); Glucose, Blood 85 mg/dL (70-99); Magnesium, Blood 2.2 mg/dL (1.6-2.4); Phosphorus, Blood 3.8 mg/dL (2.5-4.9); Potassium, Blood 3.3 mmol/L (3.5-5.5); Sodium, Blood 143 mmol/L (136-145); Total Protein, Blood 5.8 g/dL (6.4-8.2)
== END 2020-08-29 10:37 | disposition home or self-care (01) | DRG 442 ==
LOC: ER 09:03 → ICUW 11:10 → ICUE 12:25
PROVIDERS: Emergency Medicine; Nurse Practitioner Acute Care; ADMIT Internal Medicine
DX: K72.90 Hepatic failure, unspecified without coma (principal); K76.6 Portal hypertension; I85.10 Secondary esophageal varices without bleeding; E87.2 Acidosis; K42.9 Umbilical hernia without obstruction or gangrene; K70.30 Alcoholic cirrhosis of liver without ascites; E66.01 Morbid (severe) obesity due to excess calories; D69.6 Thrombocytopenia, unspecified; I10 Essential (primary) hypertension; D50.9 Iron deficiency anemia, unspecified; K21.9 Gastro-esophageal reflux disease without esophagitis; Z68.33 Body mass index [BMI] 33.0-33.9, adult
CPT/HCPCS: 36415; 51702; 71045; 80053; 81003; 82140; 83605; 83690; 83735; 84100; 85025; 85610; 85730; 93005; 93010; 96360; 99285-25; C9113; J7030

== ENCOUNTER → 2020-10-25 | Outpatient (CLI) | payer OTHER ==
[~2020-10-25] MED LIST changes: +AMOCLA875 PO; +FLAGYL500 M2 PO; +OXAYDO5 M3 PO; +PROM25 PO; +VISBIOME 112.51 EACH PO
[2020-10-25 11:55] LABS: U Amphetamine Screen Not Detected; U Barbituate Screen Not Detected; U Benzodiazapine Screen Not Detected; U Buprenorphine Screen Not Detected; U Cannabinoids Screen Not Detected; U Cocaine Screen Not Detected; U Methadone Screen Not Detected; U Methamphetamine Screen Not Detected; U Opiates Screen Not Detected; U Oxycodone Screen Not Detected; U Phencyclidine Screen Not Detected; U Propoxyphene Screen Not Detected
== END | disposition home or self-care (01) ==
LOC: LAB SHORT 09:11
PROVIDERS: Internal Medicine Gastroenterology
DX: K72.90 Hepatic failure, unspecified without coma (principal)

== ENCOUNTER 2020-11-04 07:08 | Emergency (ER) | payer OTHER ==
[~2020-11-04] VITALS: Ht 185.4 cm; Wt 132.9 kg
[~2020-11-04 07:08] MED LIST changes: -AMOCLA875 PO; -FLAGYL500 M2 PO; -OXAYDO5 M3 PO; -PROM25 PO; -VISBIOME 112.51 EACH PO
[2020-11-04 07:55] LABS: BASOPHILS ABSOLUTE AUTO 0.06 K/mm3 (0.00-0.23); BASOPHILS PERCENT AUTO 1 % (0-2); EOSINOPHILS ABSOLUTE AUTO 0.54 K/mm3 (0.00-0.68); EOSINOPHILS PERCENT AUTO 8 % (0-6); Hematocrit 31.1 % (37.0-53.0); Hemoglobin 10.5 g/dL (13.5-17.5); IMMATURE GRAN ABSOLUTE AUTO 0.02 K/mm3 (0.00-0.10); IMMATURE GRAN PERCENT AUTO 0 % (0-1); LYMPHOCYTES ABSOLUTE AUTO 0.66 K/mm3 (0.84-5.20); LYMPHOCYTES PERCENT AUTO 10 % (21-46); MONOCYTES ABSOLUTE AUTO 0.59 K/mm3 (0.16-1.47); MONOCYTES PERCENT AUTO 9 % (4-13); Mean Corpuscular HGB 34.5 pg (26.0-34.0); Mean Corpuscular HGB Conc 33.8 g/dL (31.5-36.5); Mean Corpuscular Volume 102 fL (80-100); Mean Platelet Volume 10.8 fL (9.1-12.4); NEUTROPHILS ABSOLUTE AUTO 4.77 K/mm3 (1.96-9.15); NEUTROPHILS PERCENT AUTO 72 % (41-73); Platelet Count 79 K/mm3 (150-400); RDW Standard Deviation 56.1 fL (35.1-46.3); Red Blood Cell Count 3.04 M/mm3 (4.30-5.90); White Blood Cell Count 6.64 K/mm3 (4.00-11.30)
[2020-11-04 08:19] LABS: Alanine Aminotransfer (ALT/SGP 32 U/L (12-78); Albumin, Blood 2.9 g/dL (3.4-5.0); Alk Phos 147 U/L (50-136); Anion Gap 11 mmol/L (6-16); Aspartate Aminotrans (AST/SGOT 43 U/L (12-37); Bilirubin, Total 3.5 mg/dL (0.1-1.0); Blood Urea Nitrogen 14 mg/dL (8-24); CO2, Blood 22 mmol/L (21-32); Calcium, Blood 8.1 mg/dL (8.5-10.1); Chloride, Blood 108 mmol/L (98-108); Creatinine, Blood 0.82 mg/dL (0.60-1.20); Glomerular Filtration Rate >60 (60-); Glucose, Blood 102 mg/dL (70-99); Potassium, Blood 3.6 mmol/L (3.5-5.5); Sodium, Blood 141 mmol/L (136-145); Total Protein, Blood 5.9 g/dL (6.4-8.2)
[2020-11-04] MEDS ORDERED: BENADRYL25 MG PO (08:25)
[2020-11-04] MEDS ORDERED: MECL25 PO (08:26)
[2020-11-04 09:29] LABS: Source, Urine Clean Catch
[2020-11-04 09:36] LABS: Appearance, Urine Clear (Clear); Bilirubin, Urine Neg (Neg); Blood, Urine Neg (Neg); Color, Urine Yellow (P-Yellow); Glucose Qualitative, Urine Neg (Neg); Ketones, Urine Neg (Neg); Leukocyte Esterase, Urine 1+ (Neg); Nitrite, Urine Neg (Neg); Protein, Urine Neg (Neg); Urobilinogen, Urine 1+ (Normal)
[2020-11-04 09:44] LABS: Bacteria Mod /hpf; Red Blood Cells, Urine 0-2 /hpf (0-2); Squamous Epithelial Cells Few /hpf (Few)
[2020-11-04] MEDS ORDERED: OXAYDO5 M3 PO (10:12)
[2020-11-04] MEDS ORDERED: CIPR500 PO (10:19)
== END 2020-11-04 10:25 | disposition home or self-care (01) ==
LOC: ER 07:08
PROVIDERS: Emergency Medicine
DX: K52.9 Noninfective gastroenteritis and colitis, unspecified (principal); K70.30 Alcoholic cirrhosis of liver without ascites; Z88.5 Allergy status to narcotic agent
CPT/HCPCS: 74176; 80053; 81001; 83690; 85025; 87086; 96361; 96374; 96375; 99284-25; A9270; J2405; J3010; J7030

== ENCOUNTER 2020-11-28 02:22 | Inpatient (IN) | payer OTHER ==
[~2020-11-28] VITALS: Ht 185.4 cm; Wt 129.7 kg
[~2020-11-28 02:22] MED LIST changes: +OXAYDO5 M3 PO
[2020-11-28 04:08] LABS: Hematocrit 32.6 % (37.0-53.0); Hemoglobin 11.2 g/dL (13.5-17.5); Mean Corpuscular HGB 34.3 pg (26.0-34.0); Mean Corpuscular HGB Conc 34.4 g/dL (31.5-36.5); Mean Corpuscular Volume 100 fL (80-100); Mean Platelet Volume 10.3 fL (9.1-12.4); RDW Coefficient Variation 15.1 % (11.7-14.2); Red Blood Cell Count 3.27 M/mm3 (4.30-5.90)
[2020-11-28 04:09] LABS: Platelet Count 84 K/mm3 (150-400)
[2020-11-28 04:21] LABS: Alanine Aminotransfer (ALT/SGP 39 U/L (12-78); Albumin, Blood 3.1 g/dL (3.4-5.0); Alk Phos 141 U/L (50-136); Anion Gap 8 mmol/L (6-16); Aspartate Aminotrans (AST/SGOT 44 U/L (12-37); Bilirubin, Total 5.2 mg/dL (0.1-1.0); Blood Urea Nitrogen 15 mg/dL (8-24); Bun/Creatinine Ratio 18.6 (12.0-20.0); CO2, Blood 24 mmol/L (21-32); Calcium, Blood 7.8 mg/dL (8.5-10.1); Chloride, Blood 108 mmol/L (98-108); Creatinine, Blood 0.81 mg/dL (0.60-1.20); Globulin, Blood 3.1 g/dL (2.2-4.0); Glomerular Filtration Rate >60 (60-); Glucose, Blood 119 mg/dL (70-99); Potassium, Blood 3.9 mmol/L (3.5-5.5); Sodium, Blood 140 mmol/L (136-145); Total Protein, Blood 6.2 g/dL (6.4-8.2)
[2020-11-28 04:28] LABS: BAND PERCENT MAN 20 % (0-8); BASOPHILS ABSOLUTE MAN 0.13 K/mm3 (0.00-0.23); BASOPHILS PERCENT MAN 1 % (0-2); EOSINOPHILS ABSOLUTE MAN 0.13 K/mm3 (0.00-0.68); EOSINOPHILS PERCENT MAN 1 % (0-6); LYMPHOCYTES ABSOLUTE MAN 0.52 K/mm3 (0.84-5.20); LYMPHOCYTES PERCENT MAN 4 % (21-46); MONOCYTES ABSOLUTE MAN 0.52 K/mm3 (0.16-1.47); MONOCYTES PERCENT MAN 4 % (4-13); SEG NEUTROPHILS PERCENT MAN 70 % (41-73); TOTAL CELLS COUNTED 100
[2020-11-28 06:52] LABS: Source, Urine Clean Catch
[2020-11-28 07:05] LABS: Bilirubin, Urine Neg (Neg); Blood, Urine Neg (Neg); Glucose Qualitative, Urine Neg (Neg); Ketones, Urine Neg (Neg); Leukocyte Esterase, Urine Neg (Neg); Nitrite, Urine Neg (Neg); Protein, Urine Neg (Neg); Urobilinogen, Urine NORM (Normal)
[2020-11-28 07:07] LABS: Appearance, Urine Clear (Clear); Color, Urine Yellow (P-Yellow)
--- NOTE | 2020-11-28 07:23 | NUR ---
ADMIT SUMMARY PT ARRIVED TO THE UNIT AROUND 0545 LETHARGIC AND GENERALIZED WEAKNESS. BP 103/67. HR TACHY AT 150'S. O2 SATS >95% ON ROOM AIR. TEMP 102.6. ACETAMINOPHEN GIVEN, BOLUS OF LR GIVEN. ADMIT HX AND MED REC COMPLETE. UNABLE TO COMPLETE ADMIT ASSESSMENT.
[2020-11-28 08:47] LABS: Influenza A, PCR Negative (NEGATIVE); Influenza B, PCR Negative (NEGATIVE); Resp Syncytial Virus, PCR Negative (NEGATIVE); SARS-Cov-2 (COVID-19) PCR, MMC Negative (NEGATIVE)
--- NOTE | 2020-11-28 10:30 | NUR ---
1030 H/R NOW 104
--- NOTE | 2020-11-28 16:22 | NUR ---
PT PL;EASANT TODAY. NO C/O PAIN. 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 JUST NO STRENGTH, SO HAD TO QUIT. TEMP UP TODAY OVER 102. MED WITH TYLENOL. PT NOW HAS FAN. HEAT TURNED OFF. ONLY SHEET. PT WAS IN S TACH THIS AM AT 133, NOW AT NSR AT 80-S. PT REFUSED LACTULOSE TODAY THIS AFT. NO OTHER CONCERNS TODAY. BED IN LOW POSITION, CALL LITE IN REACH. CALLS APPROP
--- NOTE | 2020-11-28 18:35 | NUR ---
SMALL SORE ON LEFT FOOT GREAT TOE, ON BOTTOM. DIME SIZED DRY. HARD. SMALL.
[2020-11-29 04:04] LABS: BASOPHILS ABSOLUTE AUTO 0.04 K/mm3 (0.00-0.23); BASOPHILS PERCENT AUTO 1 % (0-2); EOSINOPHILS ABSOLUTE AUTO 0.04 K/mm3 (0.00-0.68); EOSINOPHILS PERCENT AUTO 1 % (0-6); Hematocrit 27.4 % (37.0-53.0); Hemoglobin 9.5 g/dL (13.5-17.5); Mean Corpuscular HGB 34.9 pg (26.0-34.0); Mean Corpuscular HGB Conc 34.7 g/dL (31.5-36.5); Mean Corpuscular Volume 101 fL (80-100); Mean Platelet Volume 10.5 fL (9.1-12.4); Platelet Count 58 K/mm3 (150-400); RDW Coefficient Variation 15.6 % (11.7-14.2); RDW Standard Deviation 57.2 fL (35.1-46.3); Red Blood Cell Count 2.72 M/mm3 (4.30-5.90); White Blood Cell Count 6.11 K/mm3 (4.00-11.30)
[2020-11-29 04:08] LABS: IMMATURE GRAN ABSOLUTE AUTO 0.02 K/mm3 (0.00-0.10); IMMATURE GRAN PERCENT AUTO 0 % (0-1); LYMPHOCYTES ABSOLUTE AUTO 0.64 K/mm3 (0.84-5.20); LYMPHOCYTES PERCENT AUTO 11 % (21-46); MONOCYTES ABSOLUTE AUTO 0.75 K/mm3 (0.16-1.47); MONOCYTES PERCENT AUTO 12 % (4-13); NEUTROPHILS ABSOLUTE AUTO 4.62 K/mm3 (1.96-9.15); NEUTROPHILS PERCENT AUTO 76 % (41-73)
[2020-11-29 04:33] LABS: Alanine Aminotransfer (ALT/SGP 33 U/L (12-78); Albumin, Blood 2.7 g/dL (3.4-5.0); Alk Phos 105 U/L (50-136); Anion Gap 9 mmol/L (6-16); Aspartate Aminotrans (AST/SGOT 50 U/L (12-37); Bilirubin, Total 4.4 mg/dL (0.1-1.0); Blood Urea Nitrogen 16 mg/dL (8-24); CO2, Blood 22 mmol/L (21-32); Calcium, Blood 7.4 mg/dL (8.5-10.1); Chloride, Blood 103 mmol/L (98-108); Globulin, Blood 2.8 g/dL (2.2-4.0); Glomerular Filtration Rate >60 (60-); Glucose, Blood 98 mg/dL (70-99); Potassium, Blood 3.3 mmol/L (3.5-5.5); Sodium, Blood 134 mmol/L (136-145); Total Protein, Blood 5.5 g/dL (6.4-8.2)
--- NOTE | 2020-11-29 05:07 | NUR ---
SHIFT SUMMARY: PT A&O X4. DROWSY MOST OF SHIFT BUT AWAKENS EASILY. FEBRILE THROUGHOUT NIGHT WITH MAX TEMP 102.7 THIS MORNING. PT MEDICATED WITH TYLENOL AND ICE PACKS PLACED UNDER ARMS. ALL OTHER VS WNL. NSR PER TELE. BLOOD CULTURE RESULTS SHOWING GRAM POSITIVE COCCI IN CLUSTERS. HOSPITALIST NOTIFIED. NO NEW CHANGES TO ABX AT THIS TIME. CONTINUE IV ROCEPHIN. NEW ORDER FOR NARES TO BE CULTURED FOR MRSA. SPECIMEN COLLECTED AND AWAITING RESULTS. PT REFUSED SCHEDULED 2100 LACTULOSE. PT HAVING LIQ STOOLS THIS SHIFT. VOIDING WELL. AMBULATING TO BATHROOM INDEPENDENTLY.
--- NOTE | 2020-11-29 18:23 | NUR ---
SHIFT SUMMARY: NO ACUTE EVENTS TODAY. TELEMETRY SHOWED SR WITH RATE IN 70'S. DENIED PAIN THIS MORNING, BUT STARTED HAVING LOWER ABDOMINAL PAIN THIS AFTERNOON, HE THINKS FROM HAVING MULTIPLE BM'S D/T LACTULOSE. RECEIVED ORDER FOR TRAMADOL AND THIS WAS GIVEN JUST PRIOR TO TRANSFER TO MEDICAL FLOOR. HAD CARDIAC ECHO TODAY, RESULTS NOT IN YET. IS INDEPENDENT TO BR, BM X 4 TODAY, REFUSING LACTULOSE. TOLERATING VANCOMYCIN. REFUSING SCD'S, IS WALKING IN ROOM. PATIENT TRANSFERRED TO ROOM 359 AT 1815 VIA W/C, TELE DISCONTINUED. VANCOMYCIN INFUSING AT TIME OF TRANSFER.
--- NOTE | 2020-11-29 18:42 | NUR ---
SHIFT SUMMARY PT TRANSFERED FROM PCU 15 AT 1812 TO MEDICAL FLOOR VIA WHEELCHAIR. REPORT RECEIVED FROM MARIA DE JESUS Hilario PRIOR TO PT ARRIVAL.
[2020-11-30 04:52] LABS: BASOPHILS ABSOLUTE AUTO 0.03 K/mm3 (0.00-0.23); BASOPHILS PERCENT AUTO 1 % (0-2); EOSINOPHILS ABSOLUTE AUTO 0.58 K/mm3 (0.00-0.68); EOSINOPHILS PERCENT AUTO 12 % (0-6); Hematocrit 25.9 % (37.0-53.0); Hemoglobin 8.8 g/dL (13.5-17.5); IMMATURE GRAN ABSOLUTE AUTO 0.01 K/mm3 (0.00-0.10); IMMATURE GRAN PERCENT AUTO 0 % (0-1); LYMPHOCYTES ABSOLUTE AUTO 0.76 K/mm3 (0.84-5.20); LYMPHOCYTES PERCENT AUTO 16 % (21-46); MONOCYTES ABSOLUTE AUTO 0.83 K/mm3 (0.16-1.47); MONOCYTES PERCENT AUTO 18 % (4-13); Mean Corpuscular HGB 34.1 pg (26.0-34.0); Mean Corpuscular Volume 100 fL (80-100); Mean Platelet Volume 10.9 fL (9.1-12.4); NEUTROPHILS ABSOLUTE AUTO 2.45 K/mm3 (1.96-9.15); NEUTROPHILS PERCENT AUTO 53 % (41-73); Platelet Count 59 K/mm3 (150-400); RDW Coefficient Variation 15.5 % (11.7-14.2); RDW Standard Deviation 57.3 fL (35.1-46.3); Red Blood Cell Count 2.58 M/mm3 (4.30-5.90); White Blood Cell Count 4.66 K/mm3 (4.00-11.30)
[2020-11-30 05:09] LABS: Alanine Aminotransfer (ALT/SGP 33 U/L (12-78); Albumin, Blood 2.4 g/dL (3.4-5.0); Albumin/Globulin Ratio 0.9 (0.8-1.8); Alk Phos 94 U/L (50-136); Anion Gap 6 mmol/L (6-16); Aspartate Aminotrans (AST/SGOT 52 U/L (12-37); Bilirubin, Total 3.1 mg/dL (0.1-1.0); Blood Urea Nitrogen 14 mg/dL (8-24); Bun/Creatinine Ratio 20.1 (12.0-20.0); CO2, Blood 25 mmol/L (21-32); Calcium, Blood 7.3 mg/dL (8.5-10.1); Chloride, Blood 107 mmol/L (98-108); Globulin, Blood 2.8 g/dL (2.2-4.0); Glomerular Filtration Rate >60 (60-); Glucose, Blood 86 mg/dL (70-99); Potassium, Blood 3.6 mmol/L (3.5-5.5); Sodium, Blood 138 mmol/L (136-145); Total Protein, Blood 5.2 g/dL (6.4-8.2)
--- NOTE | 2020-11-30 06:59 | NUR ---
11/30/20 0600 VITALS STABLE. SLEEPING ON AND OFF LAST NIGHT. MEDICATED FOR GENERAL ABD. PAIN ONCE WITH FAIR RELIEF. VOIDING WELL ISOLATION IN PROCESS. RN ENCOURAGED ORAL INTAKE OF FLUIDS PER DIET.
[2020-11-30 10:03] LABS: Vancomycin, Trough 19.6 ug/mL (5.0-10.0)
--- NOTE | 2020-11-30 19:24 | NUR ---
n+v, informed dr who prescribed phenagrin, given to pt, abx infusing with no s/sx of infection or infiltration, call light in reach, rm air, up to the bathroom, bsr shared with noc nurse and pt
[2020-12-01 05:05] LABS: BASOPHILS ABSOLUTE AUTO 0.03 K/mm3 (0.00-0.23); BASOPHILS PERCENT AUTO 1 % (0-2); EOSINOPHILS ABSOLUTE AUTO 0.44 K/mm3 (0.00-0.68); EOSINOPHILS PERCENT AUTO 7 % (0-6); Hematocrit 28.6 % (37.0-53.0); Hemoglobin 9.8 g/dL (13.5-17.5); IMMATURE GRAN ABSOLUTE AUTO 0.03 K/mm3 (0.00-0.10); IMMATURE GRAN PERCENT AUTO 1 % (0-1); LYMPHOCYTES ABSOLUTE AUTO 0.64 K/mm3 (0.84-5.20); LYMPHOCYTES PERCENT AUTO 11 % (21-46); MONOCYTES ABSOLUTE AUTO 0.68 K/mm3 (0.16-1.47); MONOCYTES PERCENT AUTO 12 % (4-13); Mean Corpuscular HGB 33.9 pg (26.0-34.0); Mean Corpuscular HGB Conc 34.3 g/dL (31.5-36.5); Mean Corpuscular Volume 99 fL (80-100); Mean Platelet Volume 11.1 fL (9.1-12.4); NEUTROPHILS ABSOLUTE AUTO 4.11 K/mm3 (1.96-9.15); NEUTROPHILS PERCENT AUTO 69 % (41-73); Platelet Count 82 K/mm3 (150-400); RDW Coefficient Variation 15.4 % (11.7-14.2); RDW Standard Deviation 55.6 fL (35.1-46.3); Red Blood Cell Count 2.89 M/mm3 (4.30-5.90); White Blood Cell Count 5.93 K/mm3 (4.00-11.30)
[2020-12-01 05:18] LABS: Anion Gap 7 mmol/L (6-16); Blood Urea Nitrogen 10 mg/dL (8-24); Bun/Creatinine Ratio 16.3 (12.0-20.0); CO2, Blood 21 mmol/L (21-32); Calcium, Blood 7.9 mg/dL (8.5-10.1); Chloride, Blood 107 mmol/L (98-108); Creatinine, Blood 0.61 mg/dL (0.60-1.20); Glomerular Filtration Rate >60 (60-); Glucose, Blood 96 mg/dL (70-99); Potassium, Blood 3.8 mmol/L (3.5-5.5); Sodium, Blood 135 mmol/L (136-145)
--- NOTE | 2020-12-01 07:31 | NUR ---
12/01/20 0600 SLEPT ON AND OFF LAST NIGHT. MEDICATED ONCE FOR SLIGHT NAUSEA AT 2245 AND ONCE FOR ABDOMINAL DISCOMFORT AT 0220 THIS AM. UP TO BR FOR VOIDINGS. STATED HE HAD A SMALL BM BUT FORGOT TO SAVE FOR RN TO VIEW. VITALS REMAIN STABLE. CONTACT ISOLATION MAINTAINED.
[2020-12-01 09:31] LABS: Vancomycin, Trough 23.6 ug/mL (5.0-10.0)
--- NOTE | 2020-12-01 17:33 | NUR ---
SHIFT SUMMARY PATIENT ALERT AND ORIENTED THIS SHIFT. PATIENT INDEPENDENT IN THE ROOM. PATIENT MEDICATED FOR ABDOMINAL PAIN PER EMAR. PATIENT EXPERIENCED N/V EARLY THIS AM. PATIENT MEDICATED PER EMAR. PATIENT STATED LARGE REDUCTION OF NAUSEA. PATIENT REPORTED VOMITING AGAIN AFTER MEDICATION ADMINISTRATION WITH RESOLUTION OF NAUSEA AFTER VOMITING. PATIENT DENIES NAUSEA THE REST OF THE SHIFT. PATIENT CURRENTLY LAYING IN BED SLEEPING.
[2020-12-02 04:43] LABS: BASOPHILS ABSOLUTE AUTO 0.04 K/mm3 (0.00-0.23); BASOPHILS PERCENT AUTO 1 % (0-2); EOSINOPHILS ABSOLUTE AUTO 0.52 K/mm3 (0.00-0.68); EOSINOPHILS PERCENT AUTO 7 % (0-6); Hematocrit 26.5 % (37.0-53.0); Hemoglobin 9.1 g/dL (13.5-17.5); IMMATURE GRAN ABSOLUTE AUTO 0.05 K/mm3 (0.00-0.10); IMMATURE GRAN PERCENT AUTO 1 % (0-1); LYMPHOCYTES ABSOLUTE AUTO 0.76 K/mm3 (0.84-5.20); LYMPHOCYTES PERCENT AUTO 11 % (21-46); MONOCYTES ABSOLUTE AUTO 0.94 K/mm3 (0.16-1.47); MONOCYTES PERCENT AUTO 13 % (4-13); Mean Corpuscular HGB 34.2 pg (26.0-34.0); Mean Corpuscular HGB Conc 34.3 g/dL (31.5-36.5); Mean Corpuscular Volume 100 fL (80-100); Mean Platelet Volume 10.7 fL (9.1-12.4); NEUTROPHILS ABSOLUTE AUTO 4.74 K/mm3 (1.96-9.15); NEUTROPHILS PERCENT AUTO 67 % (41-73); Platelet Count 85 K/mm3 (150-400); RDW Coefficient Variation 15.6 % (11.7-14.2); RDW Standard Deviation 56.4 fL (35.1-46.3); Red Blood Cell Count 2.66 M/mm3 (4.30-5.90); White Blood Cell Count 7.05 K/mm3 (4.00-11.30)
--- NOTE | 2020-12-02 07:29 | NUR ---
12/02/20 0610 Awakened for AM med. States he had 5+ BM'S last night. Nausea much better last night from previous day. Vitals stable. RN encouraged pt to be up more to improve bowel activity. Pt reluctant and wants to sleep.
[2020-12-02] MEDS ORDERED: AMOCLA875 PO (14:01)
[2020-12-02] MEDS ORDERED: PROM25 PO (14:02)
[2020-12-02] MEDS ORDERED: VISBIOME 112.51 EACH PO (14:02)
--- NOTE | 2020-12-02 15:19 | NUR ---
DISCHARGE NOTE PATIENT DISCHARGED TO HOME. PATIENT ALERT AND ORIENTED THROUGHOUT THIS SHIFT. PATIENT INDEPENDENT IN THE ROOM THIS SHIFT. PATIENT DENIES PAIN THROUGHOUT THIS SHIFT. PATIENT DENIES NAUSEA THIS SHIFT. PATIENT REPORTS MULTIPLE BMs OVER NIGHT. PATIENT STATES UNDERSTANDING OF DISCHARGE AND MEDICATION INSTRUCTIONS. PATIENT TO VEHICLE VIA WHEELCHAIR BY DOUBLE CUTTER.
== END 2020-12-02 15:20 | disposition home or self-care (01) | DRG 871 ==
LOC: ER 02:22 → PCU 04:31 → MEDS 11-29 18:15
PROVIDERS: Emergency Medicine; Internal Medicine; Pharmacist; ADMIT Family Medicine
PROC: 0W9G3ZX Drainage of Peritoneal Cavity, Percutaneous Approach, Diagnostic (ICD-10-PCS; principal; 2020-11-28)
DX: A41.9 Sepsis, unspecified organism (principal); K72.00 Acute and subacute hepatic failure without coma; K76.6 Portal hypertension; Z20.828 Contact with and (suspected) exposure to other viral communicable diseases; B18.2 Chronic viral hepatitis C; D69.6 Thrombocytopenia, unspecified; E87.6 Hypokalemia; K21.9 Gastro-esophageal reflux disease without esophagitis; K70.30 Alcoholic cirrhosis of liver without ascites
CPT/HCPCS: 0241U; 36415; 71045; 71250; 76705; 80048; 80053; 80202; 81003; 82140; 83605; 83690; 84145; 85025; 85651; 86140; 87040; 87077; 87186; 93005; 93010; 93306; 96360-59; 96361-59; 99285-25; A9270; J0696; J2550; J3370; J7030; J7050; J7120

== ENCOUNTER 2020-12-25 11:56 | Day surgery (SDC) | payer OTHER ==
[~2020-12-25] VITALS: Ht 185.4 cm; Wt 130.4 kg
[~2020-12-25 11:56] MED LIST changes: +AMOCLA875 PO; +PROM25 PO; +VISBIOME 112.51 EACH PO
== END 2020-12-25 14:14 | disposition home or self-care (01) ==
LOC: ORSCSDS 11:56
PROVIDERS: Internal Medicine Gastroenterology
PROC: 0DB68ZZ Excision of Stomach, Via Natural or Artificial Opening Endoscopic (ICD-10-PCS; principal; 2020-12-25 13:30)
DX: I85.00 Esophageal varices without bleeding (principal); K31.7 Polyp of stomach and duodenum; K76.6 Portal hypertension; E66.9 Obesity, unspecified; Z68.37 Body mass index [BMI] 37.0-37.9, adult; Z79.899 Other long term (current) drug therapy
CPT/HCPCS: 88305; 88342; J2704; J7120

== ENCOUNTER 2021-01-15 18:26 | Emergency (ER) | payer OTHER ==
[~2021-01-15] VITALS: Ht 185.4 cm; Wt 129.7 kg
[2021-01-15 19:36] LABS: BASOPHILS ABSOLUTE AUTO 0.06 K/mm3 (0.00-0.23); BASOPHILS PERCENT AUTO 1 % (0-2); EOSINOPHILS ABSOLUTE AUTO 0.11 K/mm3 (0.00-0.68); EOSINOPHILS PERCENT AUTO 2 % (0-6); Hematocrit 36.8 % (37.0-53.0); Hemoglobin 12.9 g/dL (13.5-17.5); IMMATURE GRAN ABSOLUTE AUTO 0.01 K/mm3 (0.00-0.10); IMMATURE GRAN PERCENT AUTO 0 % (0-1); LYMPHOCYTES ABSOLUTE AUTO 0.61 K/mm3 (0.84-5.20); LYMPHOCYTES PERCENT AUTO 11 % (21-46); MONOCYTES ABSOLUTE AUTO 0.46 K/mm3 (0.16-1.47); MONOCYTES PERCENT AUTO 8 % (4-13); Mean Corpuscular HGB 34.6 pg (26.0-34.0); Mean Corpuscular HGB Conc 35.1 g/dL (31.5-36.5); Mean Corpuscular Volume 99 fL (80-100); Mean Platelet Volume 10.9 fL (9.1-12.4); NEUTROPHILS ABSOLUTE AUTO 4.36 K/mm3 (1.96-9.15); NEUTROPHILS PERCENT AUTO 78 % (41-73); Platelet Count 104 K/mm3 (150-400); RDW Coefficient Variation 15.4 % (11.7-14.2); RDW Standard Deviation 56.1 fL (35.1-46.3); Red Blood Cell Count 3.73 M/mm3 (4.30-5.90); White Blood Cell Count 5.61 K/mm3 (4.00-11.30)
[2021-01-15 20:09] LABS: Alanine Aminotransfer (ALT/SGP 41 U/L (12-78); Albumin, Blood 3.9 g/dL (3.4-5.0); Albumin/Globulin Ratio 1.2 (0.8-1.8); Alk Phos 123 U/L (50-136); Anion Gap 8 mmol/L (6-16); Aspartate Aminotrans (AST/SGOT 48 U/L (12-37); Bilirubin, Total 3.8 mg/dL (0.1-1.0); Blood Urea Nitrogen 15 mg/dL (8-24); Bun/Creatinine Ratio 16.3 (12.0-20.0); CO2, Blood 26 mmol/L (21-32); Calcium, Blood 9.1 mg/dL (8.5-10.1); Chloride, Blood 107 mmol/L (98-108); Creatinine, Blood 0.92 mg/dL (0.60-1.20); Globulin, Blood 3.3 g/dL (2.2-4.0); Glomerular Filtration Rate >60 (60-); Glucose, Blood 118 mg/dL (70-99); Potassium, Blood 3.9 mmol/L (3.5-5.5); Sodium, Blood 141 mmol/L (136-145); Total Protein, Blood 7.2 g/dL (6.4-8.2)
[2021-01-15 20:10] LABS: Source, Urine Clean Catch
[2021-01-15 20:16] LABS: Appearance, Urine Clear (Clear); Bilirubin, Urine Neg (Neg); Blood, Urine Neg (Neg); Color, Urine Yellow (P-Yellow); Glucose Qualitative, Urine Neg (Neg); Ketones, Urine Neg (Neg); Leukocyte Esterase, Urine Neg (Neg); Nitrite, Urine Neg (Neg); Protein, Urine Neg (Neg); Urobilinogen, Urine NORM (Normal)
== END 2021-01-15 23:45 | disposition home or self-care (01) ==
LOC: ER 18:26
PROVIDERS: Physician Assistant
DX: K56.7 Ileus, unspecified (principal)
CPT/HCPCS: 36415; 74177; 80053; 81003; 82140; 83690; 85025; 96361; 96374-59; 96375; 99285-25; J0780; J2405; J7030; Q9967

== ENCOUNTER 2021-01-23 00:15 | Day surgery (SDC) | payer OTHER | END 2021-01-23 22:52 | disposition home or self-care (01) | LOC: US 00:15 | DX: K70.31 Alcoholic cirrhosis of liver with ascites (principal) | CPT/HCPCS: 76705 ==

== ENCOUNTER 2021-04-19 16:58 | Inpatient (IN) | payer OTHER ==
[~2021-04-19] VITALS: Ht 182.9 cm; Wt 148.8 kg
[2021-04-19 17:31] LABS: BASOPHILS ABSOLUTE AUTO 0.02 K/mm3 (0.00-0.23); BASOPHILS PERCENT AUTO 0 % (0-2); EOSINOPHILS PERCENT AUTO 0 % (0-6); Hematocrit 34.9 % (37.0-53.0); IMMATURE GRAN ABSOLUTE AUTO 0.04 K/mm3 (0.00-0.10); IMMATURE GRAN PERCENT AUTO 1 % (0-1); LYMPHOCYTES ABSOLUTE AUTO 0.17 K/mm3 (0.84-5.20); LYMPHOCYTES PERCENT AUTO 2 % (21-46); MONOCYTES ABSOLUTE AUTO 0.65 K/mm3 (0.16-1.47); MONOCYTES PERCENT AUTO 8 % (4-13); Mean Corpuscular HGB 34.7 pg (26.0-34.0); Mean Corpuscular HGB Conc 34.4 g/dL (31.5-36.5); Mean Corpuscular Volume 101 fL (80-100); Mean Platelet Volume 11.3 fL (9.1-12.4); NEUTROPHILS ABSOLUTE AUTO 7.54 K/mm3 (1.96-9.15); NEUTROPHILS PERCENT AUTO 90 % (41-73); Platelet Count 57 K/mm3 (150-400); RDW Coefficient Variation 15.7 % (11.7-14.2); RDW Standard Deviation 58.3 fL (35.1-46.3); Red Blood Cell Count 3.46 M/mm3 (4.30-5.90); White Blood Cell Count 8.42 K/mm3 (4.00-11.30)
[2021-04-19 17:46] LABS: International Normalized Ratio 1.29; Prothrombin Time Results 13.7 Sec (9.7-11.5)
[2021-04-19 17:52] LABS: Alanine Aminotransfer (ALT/SGP 36 U/L (12-78); Albumin, Blood 3.5 g/dL (3.4-5.0); Albumin/Globulin Ratio 1.2 (0.8-1.8); Alk Phos 93 U/L (50-136); Anion Gap 10 mmol/L (6-16); Aspartate Aminotrans (AST/SGOT 51 U/L (12-37); Bilirubin, Total 4.4 mg/dL (0.1-1.0); Blood Urea Nitrogen 16 mg/dL (8-24); Bun/Creatinine Ratio 15.8 (12.0-20.0); CO2, Blood 21 mmol/L (21-32); Calcium, Blood 8.3 mg/dL (8.5-10.1); Chloride, Blood 111 mmol/L (98-108); Creatinine, Blood 1.01 mg/dL (0.60-1.20); Globulin, Blood 2.8 g/dL (2.2-4.0); Glomerular Filtration Rate >60 (60-); Glucose, Blood 119 mg/dL (70-99); Magnesium, Blood 1.7 mg/dL (1.6-2.4); Potassium, Blood 3.9 mmol/L (3.5-5.5); Sodium, Blood 142 mmol/L (136-145); Total Protein, Blood 6.3 g/dL (6.4-8.2)
[2021-04-19 20:37] LABS: Ethanol (Alcohol), Blood, Med <3 mg/dL
[2021-04-19 20:43] LABS: U Amphetamine Screen Not Detected; U Barbituate Screen Not Detected; U Benzodiazapine Screen Not Detected; U Buprenorphine Screen Not Detected; U Cannabinoids Screen Not Detected; U Cocaine Screen Not Detected; U Methadone Screen Not Detected; U Methamphetamine Screen Not Detected; U Opiates Screen Not Detected; U Oxycodone Screen Not Detected; U Phencyclidine Screen Not Detected; U Propoxyphene Screen Not Detected
[2021-04-19 22:40] LABS: SARS-Cov-2 (COVID-19) PCR, MMC NEGATIVE (NEGATIVE)
[2021-04-20 00:03] LABS: Source, Urine Catheter
[2021-04-20 00:06] LABS: Bilirubin, Urine Neg (Neg); Blood, Urine Neg (Neg); Glucose Qualitative, Urine Neg (Neg); Ketones, Urine Neg (Neg); Leukocyte Esterase, Urine Neg (Neg); Nitrite, Urine Neg (Neg); Protein, Urine Neg (Neg); Specific Gravity, Urine 1.005 (1.003-1.022); Urobilinogen, Urine NORM (Normal)
[2021-04-20 00:08] LABS: Appearance, Urine Clear (Clear); Color, Urine Yellow (P-Yellow)
[2021-04-20 03:44] LABS: Hematocrit 29.9 % (37.0-53.0); Hemoglobin 10.4 g/dL (13.5-17.5); Mean Corpuscular HGB 34.7 pg (26.0-34.0); Mean Corpuscular HGB Conc 34.8 g/dL (31.5-36.5); Mean Corpuscular Volume 100 fL (80-100); Mean Platelet Volume 11.8 fL (9.1-12.4); Platelet Count 51 K/mm3 (150-400); RDW Coefficient Variation 15.9 % (11.7-14.2); RDW Standard Deviation 57.6 fL (35.1-46.3); White Blood Cell Count 11.06 K/mm3 (4.00-11.30)
[2021-04-20 04:01] LABS: BAND PERCENT MAN 24 % (0-8); BASOPHILS PERCENT MAN 0 % (0-2); EOSINOPHILS PERCENT MAN 0 % (0-6); MONOCYTES ABSOLUTE MAN 0.66 K/mm3 (0.16-1.47); MONOCYTES PERCENT MAN 6 % (4-13); NEUTROPHILS ABSOLUTE MAN 10.39 K/mm3 (1.96-9.15); SEG NEUTROPHILS PERCENT MAN 70 % (41-73); TOTAL CELLS COUNTED 100
[2021-04-20 04:03] LABS: Anion Gap 7 mmol/L (6-16); Blood Urea Nitrogen 21 mg/dL (8-24); Bun/Creatinine Ratio 19.8 (12.0-20.0); CO2, Blood 23 mmol/L (21-32); Calcium, Blood 7.7 mg/dL (8.5-10.1); Chloride, Blood 111 mmol/L (98-108); Creatinine, Blood 1.06 mg/dL (0.60-1.20); Glomerular Filtration Rate >60 (60-); Glucose, Blood 130 mg/dL (70-99); Lactate Dehydrogenase (Ld),Bld 218 U/L (100-240); Potassium, Blood 3.8 mmol/L (3.5-5.5); Sodium, Blood 141 mmol/L (136-145)
--- NOTE | 2021-04-20 05:08 | NUR ---
SHIFT SUMMARY REPORT RECIEVED FROM KATE GALLOWAY, PATIENT TO ROOM FROM ED @4870. PATIENT IS ALERT AND ORIENTED X4. INDEPENDENT WITH REPOSITIONING, SBA TO THE BATHROOM. PATIENT HAVING BOWEL MOVEMENTS. STEVENSON DRAINGING VANDANA URINE. LACTIC ACID OF 4.3 CALLED TO HOSPITALIST, BOLUS OF 3100 MLS OF LR GIVEN. 02 SATS 96% ON RA, SOB WITH ACTIVITY. TEMP NOW 98.4, PATIENT ST UPON ARRIVAL NOW SR @70s. VSS, NO ACUTE CHANGES. CALL LIGHT IN REACH.
--- NOTE | 2021-04-20 08:12 | NUR ---
UPDATE CONTINUOUS LOFT OPERATOR AT BEDSIDE. ULTRASOUND OF ABD DONE TO CONFIRM OR DENY THE PRESENCE OF FLUID IN THE ABD. CONTINUOUS LOFT OPERATOR CONFIRMED NO FLUID AT THIS TIME. PHYSICIAN AWARE. ORDERS TO HAVE PT NOT TAKE TYLENOL UNLESS FEVER GOES ABOVE [address] MCDANIELS BEFORE ADMINISTRAITN OF TYLENOL PRODUCTS. PT NOW MEDICAL NO TELE STATUS.
--- NOTE | 2021-04-20 18:30 | NUR ---
SHIFT SUMMARY/REPORT GIVEN PT ALERT AND ORIENTED X 4. HR STABLE. BP STABLE. OXYGEN SATURATION MAINTAINED ABOVE 92% ON RA. PHYSICIAN AT BEDSIDE THIS AM. ORDERS TO DC STEVENSON AND NOT TO GIVE MEDICATION TO TREAT FEVER UNLESS OVER 103 AND TO CALL PHYSICIAN FIRST. PT REFUSING LACTULOSE. PT EDUCATED ON REASON FOR TAKING LACTULOSE BUT PT STATES HE HAS DIARRHEA AND CONT TO REFUSE. SAYS HE WILL TAKE IN "AM." REPORT GIVEN TO ROOM 304 RN. PT BROUGHT BY WHEELCHAIR WITH ALL BELONGINGS TO ROOM 304 BY AGUILAR.
--- NOTE | 2021-04-21 05:32 | NUR ---
PURCHASING DEPARTMENT CLERK SUMMARY PT TRANSFERED TO ROOM 304 FROM PCU AT START OF SHIFT. PT AAOX4 AND PLEASANT. ADMITTED FOR SEPSIS, ON LR @ 100 ML/HR. PT COMPLAINING OF CHRONIC BACK PAINS WELL NEW LOWER ABD PAIN. UNABLE TO GIVE TYLENOL PER MD ORDER TO HOLD UNLESS TEMP EXCEEDED 103. SPOKE WITH DR HIDALGO REGARDING NEED FOR PAIN CONTROL AND RECIEVED ORDER FOR PRN FENTANYL. PT REPORTED THAT IT HELPED "A LITTLE BIT", HOWEVER PT WAS ABLE TO SLEEP WELL SHORTLY AFTER. TEMP AT START OF SHIFT 102.1, DOWN TO 99 WITH AM VITALS. OTHER VSS, WILL CONTINUE TO MONITOR.
[2021-04-21 07:03] LABS: Mean Corpuscular Volume 100 fL (80-100); RDW Coefficient Variation 15.7 % (11.7-14.2)
[2021-04-21 07:05] LABS: Hematocrit 27.8 % (37.0-53.0); Hemoglobin 9.8 g/dL (13.5-17.5); Mean Corpuscular HGB 35.1 pg (26.0-34.0); Mean Corpuscular HGB Conc 35.3 g/dL (31.5-36.5); RDW Standard Deviation 57.4 fL (35.1-46.3); Red Blood Cell Count 2.79 M/mm3 (4.30-5.90); White Blood Cell Count 7.04 K/mm3 (4.00-11.30)
[2021-04-21 07:06] LABS: Anion Gap 5 mmol/L (6-16); Blood Urea Nitrogen 20 mg/dL (8-24); Bun/Creatinine Ratio 22.6 (12.0-20.0); CO2, Blood 24 mmol/L (21-32); Calcium, Blood 7.5 mg/dL (8.5-10.1); Chloride, Blood 106 mmol/L (98-108); Creatinine, Blood 0.88 mg/dL (0.60-1.20); Glomerular Filtration Rate >60 (60-); Glucose, Blood 98 mg/dL (70-99); Potassium, Blood 3.8 mmol/L (3.5-5.5); Sodium, Blood 135 mmol/L (136-145)
[2021-04-21 07:40] LABS: Platelet Count 46 K/mm3 (150-400)
[2021-04-21 08:23] LABS: BAND PERCENT MAN 15 % (0-8); BASOPHILS ABSOLUTE MAN 0.07 K/mm3 (0.00-0.23); BASOPHILS PERCENT MAN 1 % (0-2); EOSINOPHILS ABSOLUTE MAN 0.07 K/mm3 (0.00-0.68); EOSINOPHILS PERCENT MAN 1 % (0-6); LYMPHOCYTES PERCENT MAN 10 % (21-46); MONOCYTES ABSOLUTE MAN 0.49 K/mm3 (0.16-1.47); MONOCYTES PERCENT MAN 7 % (4-13); SEG NEUTROPHILS PERCENT MAN 66 % (41-73); TOTAL CELLS COUNTED 100
--- NOTE | 2021-04-21 16:45 | NUR ---
SHIFT SUMMARY MEDICATED SEVERAL TIMES THIS SHIFT FOR FLANK AND ABDOMINAL PAIN. MEDICATED X1 FOR EPISODE OF NAUSEA AND VOMITING. KPAD TO BACK FOR COMFORT. DENIES SHORTNESS OF BREATH. UP SBA TO BR. NAPPING OFF AND ON DURING SHIFT. ABDOMINAL ULTRASOUND COMPLETED. PLEASANT AND COOPERATIVE WITH CARE.
--- NOTE | 2021-04-22 06:22 | NUR ---
SHIFT SUMMARY: AOX3, MOSTLY SLEEPING THIS SHIFT. C/O NAUSEA X1. CALLED AND GUS ORDERED. GIVEN X1, NO EMESIS. PAIN MED EVERY 4 HOURS. REFUSED LACTOLOSE STATES IT MAKES HIM SICK. STATES HE FEELS HE HAS A BLOCKAGE, DESPITE HAVING MULTIPLE BM PREVIOUS DAY. LOWER ABDOMEN CRAMPING. BELCHING BUT NO PASSING GAS THE OTHER WAY. BT HYPOACTIVE TO ACTIVE ALL NIGHT. IVF CONTINUE TO INFUSE. VS WNL STILL NEEDING A STOOL SAMPLE. WILL REPORT TO DAYSHIFT. CALL LIGHT IN REACH.
[2021-04-22 06:30] LABS: Anion Gap 9 mmol/L (6-16); Blood Urea Nitrogen 15 mg/dL (8-24); Bun/Creatinine Ratio 19.3 (12.0-20.0); CO2, Blood 23 mmol/L (21-32); Calcium, Blood 7.5 mg/dL (8.5-10.1); Chloride, Blood 104 mmol/L (98-108); Creatinine, Blood 0.78 mg/dL (0.60-1.20); Glomerular Filtration Rate >60 (60-); Glucose, Blood 90 mg/dL (70-99); Potassium, Blood 3.8 mmol/L (3.5-5.5); Sodium, Blood 136 mmol/L (136-145)
[2021-04-22 07:07] LABS: BASOPHILS ABSOLUTE AUTO 0.02 K/mm3 (0.00-0.23); BASOPHILS PERCENT AUTO 0 % (0-2); EOSINOPHILS ABSOLUTE AUTO 0.13 K/mm3 (0.00-0.68); EOSINOPHILS PERCENT AUTO 2 % (0-6); Hematocrit 27.9 % (37.0-53.0); Hemoglobin 9.9 g/dL (13.5-17.5); IMMATURE GRAN ABSOLUTE AUTO 0.03 K/mm3 (0.00-0.10); IMMATURE GRAN PERCENT AUTO 1 % (0-1); LYMPHOCYTES ABSOLUTE AUTO 0.54 K/mm3 (0.84-5.20); LYMPHOCYTES PERCENT AUTO 8 % (21-46); MONOCYTES PERCENT AUTO 9 % (4-13); Mean Corpuscular HGB 34.5 pg (26.0-34.0); Mean Corpuscular HGB Conc 35.5 g/dL (31.5-36.5); Mean Corpuscular Volume 97 fL (80-100); Mean Platelet Volume 11.1 fL (9.1-12.4); NEUTROPHILS ABSOLUTE AUTO 5.11 K/mm3 (1.96-9.15); NEUTROPHILS PERCENT AUTO 80 % (41-73); RDW Coefficient Variation 15.1 % (11.7-14.2); RDW Standard Deviation 54.4 fL (35.1-46.3); Red Blood Cell Count 2.87 M/mm3 (4.30-5.90); White Blood Cell Count 6.43 K/mm3 (4.00-11.30)
[2021-04-22 07:15] LABS: Platelet Count 50 K/mm3 (150-400)
--- NOTE | 2021-04-22 17:59 | NUR ---
SHIFT SUMMARY PT A&O X4. UP IND AT BEDSIDE. PT CONTINUED TO HAVE N/V AND ABD PAIN- MEDS PER RX. DR BARAJAS INTO SEE PT THIS AFTERNOON- REPORTED NO SURGERY AT THIS TIME AND WAS ABLE TO REDUCE HERNIA. PT REPORTS NO BM OR FLATUS. VSS. PLAN: PT NPO AND CONTINUE ABX
[2021-04-22 23:13] LABS: Campylobacter Sp Not Detected (NOT DETECT)
[2021-04-22 23:14] LABS: Adenovirus F 40/41 Not Detected (NOT DETECT); Astrovirus Not Detected (NOT DETECT); Cryptosporidium Not Detected (NOT DETECT); Cyclospora Cayetanensis Not Detected (NOT DETECT); E. Coli O157 Not Detected (NOT DETECT); Entamoeba Histolytica Not Detected (NOT DETECT); Enteroaggregative E. coli-EAEC Not Detected (NOT DETECT); Enteropathogenic E. coli-EPEC Not Detected (NOT DETECT); Enterotoxigenic E. coli-ETEC Not Detected (NOT DETECT); Giardia Lamblia Not Detected (NOT DETECT); Norovirus GI/GII Not Detected (NOT DETECT); Plesiomonas Shigelloides Not Detected (NOT DETECT); Rotavirus A Not Detected (NOT DETECT); Salmonella Sp Not Detected (NOT DETECT); Sapovirus Not Detected (NOT DETECT); Shiga Toxin-prod E. coli-STEC Not Detected (NOT DETECT); Shigella/Enteroin E. coli-EIEC Not Detected (NOT DETECT); Vibrio Cholerae Not Detected (NOT DETECT); Vibrio Sp Not Detected (NOT DETECT); Yersinia Enterocolitica Not Detected (NOT DETECT)
--- NOTE | 2021-04-23 06:16 | NUR ---
SHIFT SUMMARY: SLEPT BETTER THIS SHIFT. SLEEPS AN AVERAGE OF 2 HOURS AT A TIME. LUNG SOUNDS ARE DIMINISHED, COUGH IS PRODUCTIVE. USING FLUTTER VALVE AND INSPIROMETER WELL. BLOOD SUGAR WAS 303. INSULIN GIVEN. BLE EDEMA STILL PRESENT DUE TO HIM DANGLING ALL THE TIME. HE DID MENTION ABOUT GOING ONTO HOSPICE AND PLANS ON TALKING TO [facility] ABOUT IT TODAY. STATES HE IS NOT GETTING BETTER AND DOES NOT WANT TO GO HOME. STATES HIS MOTHER CAN NOT PROVIDE FOR HIM AND HE LIKES IT HERE CAUSE HE GETS HELP. MEDICATED FOR PAIN EVERY 4 HOURS. VS WNL, AFEBRILE. USES URINAL. CALLS APPROPRIATLY. WILL REPORT TO DAYSHIFT.
--- NOTE | 2021-04-23 06:22 | NUR ---
SHIFT SUMMARY: AOX3. ABLE TO GET UP TO THE BATHROOM WHEN NOT HOOKED UP TO IV. HAS HAD SEVERAL WATERY BM THIS SHIFT. NO NAUSEA. VS WNL, TEMP RESOLVED. CONTINUED TO ASK FOR CRACKERS AND FOOD, STATES HE THINKS HE COULD EAT. ENCOURAGED HIM TO LET STOMACH REST FOR THE NIGHT. DID TOLERATE FLUIDS OK. MEDICATED FOR PAIN ONLY ONCE. IS WANTING TO GO HOME TODAY. CALL LIGHT IN REACH, USES IT APPROPRIATLY.
[2021-04-23 09:50] LABS: BASOPHILS ABSOLUTE AUTO 0.03 K/mm3 (0.00-0.23); BASOPHILS PERCENT AUTO 1 % (0-2); EOSINOPHILS ABSOLUTE AUTO 0.25 K/mm3 (0.00-0.68); EOSINOPHILS PERCENT AUTO 7 % (0-6); Hematocrit 26.5 % (37.0-53.0); Hemoglobin 9.5 g/dL (13.5-17.5); IMMATURE GRAN ABSOLUTE AUTO 0.04 K/mm3 (0.00-0.10); IMMATURE GRAN PERCENT AUTO 1 % (0-1); LYMPHOCYTES ABSOLUTE AUTO 0.49 K/mm3 (0.84-5.20); LYMPHOCYTES PERCENT AUTO 13 % (21-46); MONOCYTES ABSOLUTE AUTO 0.39 K/mm3 (0.16-1.47); MONOCYTES PERCENT AUTO 10 % (4-13); Mean Corpuscular HGB 34.8 pg (26.0-34.0); Mean Corpuscular HGB Conc 35.8 g/dL (31.5-36.5); Mean Corpuscular Volume 97 fL (80-100); Mean Platelet Volume 10.8 fL (9.1-12.4); NEUTROPHILS ABSOLUTE AUTO 2.67 K/mm3 (1.96-9.15); NEUTROPHILS PERCENT AUTO 69 % (41-73); NRBC ABSOLUTE 0.02 K/mm3 (0.00-0.02); NRBC Auto 0.5 /100 WBC (0.0-0.2); Platelet Count 54 K/mm3 (150-400); RDW Coefficient Variation 15.1 % (11.7-14.2); RDW Standard Deviation 53.8 fL (35.1-46.3); Red Blood Cell Count 2.73 M/mm3 (4.30-5.90); White Blood Cell Count 3.87 K/mm3 (4.00-11.30)
[2021-04-23 10:03] LABS: Anion Gap 6 mmol/L (6-16); Blood Urea Nitrogen 12 mg/dL (8-24); Bun/Creatinine Ratio 14.9 (12.0-20.0); CO2, Blood 28 mmol/L (21-32); Calcium, Blood 7.5 mg/dL (8.5-10.1); Chloride, Blood 103 mmol/L (98-108); Creatinine, Blood 0.81 mg/dL (0.60-1.20); Glomerular Filtration Rate >60 (60-); Glucose, Blood 141 mg/dL (70-99); Potassium, Blood 3.1 mmol/L (3.5-5.5); Sodium, Blood 137 mmol/L (136-145)
[2021-04-23] MEDS ORDERED: CIPR500 PO (13:43)
[2021-04-23] MEDS ORDERED: FLAGYL500 M2 PO (13:44)
[2021-04-23] MEDS ORDERED: VISBIOME 112.51 EACH PO (13:45)
--- NOTE | 2021-04-23 16:25 | NUR ---
DISCHARGE SUMMARY PT DISCHARGED TO HOME. PT LEFT ROOM AT 1415 VIA WHEELCHAIR WITH SALESPERSON MEN'S FURNISHINGS ESCORT. PT EDUCATED ON ALL DISCHARGE INSTRUCTIONS, ALL QUESTIONS ANSWERED. PT APPOINTMENT MADE, PT AGREES TO FOLLOW UP WITH PCP PER APPOINTMENT AND TO TAKE MEDICATIONS PRESCRIBED. IV DC'D AND BELONINGS RETURNED.
== END 2021-04-23 14:20 | disposition home or self-care (01) | DRG 871 ==
LOC: ER 16:58 → MEDS 21:33 → PCU 21:33 → MEDS 04-20 19:14
PROVIDERS: Family Medicine; Student in an Organized Health Care Education/Training Program; ADMIT Family Medicine
DX: A41.9 Sepsis, unspecified organism (principal); K65.2 Spontaneous bacterial peritonitis; E72.20 Disorder of urea cycle metabolism, unspecified; K76.6 Portal hypertension; E87.2 Acidosis; K42.0 Umbilical hernia with obstruction, without gangrene; Z20.822 Contact with and (suspected) exposure to COVID-19; K70.31 Alcoholic cirrhosis of liver with ascites; D50.9 Iron deficiency anemia, unspecified; K21.9 Gastro-esophageal reflux disease without esophagitis; Z98.890 Other specified postprocedural states; Z79.899 Other long term (current) drug therapy
CPT/HCPCS: 0097U; 36415; 51702; 70450; 71045; 74018; 74177; 76700; 76705; 80048; 80053; 81003; 82140; 83605; 83615; 83690; 83735; 84484; 85025; 85610; 85730; 87040; 93005; 93010; 96361-59; 96365-59; 96366-59; 96367-59; 96368; 96375-59; 96376-59; 97116; 97161; 97530; 99285-25; A9270; G0480; J0153; J0744; J2405; J2543; J2765; J3010; J3475; J7030; J7120; Q9967; U0004

== ENCOUNTER 2021-06-17 06:33 | Emergency (ER) | payer OTHER ==
[~2021-06-17] VITALS: Ht 185.4 cm; Wt 138.3 kg
[~2021-06-17 06:33] MED LIST changes: +FLAGYL500 M2 PO
[2021-06-17 07:55] LABS: BASOPHILS ABSOLUTE AUTO 0.04 K/mm3 (0.00-0.23); BASOPHILS PERCENT AUTO 1 % (0-2); EOSINOPHILS ABSOLUTE AUTO 0.14 K/mm3 (0.00-0.68); EOSINOPHILS PERCENT AUTO 3 % (0-6); Hematocrit 32.4 % (37.0-53.0); Hemoglobin 11.4 g/dL (13.5-17.5); IMMATURE GRAN ABSOLUTE AUTO 0.02 K/mm3 (0.00-0.10); IMMATURE GRAN PERCENT AUTO 0 % (0-1); LYMPHOCYTES ABSOLUTE AUTO 0.98 K/mm3 (0.84-5.20); LYMPHOCYTES PERCENT AUTO 18 % (21-46); MONOCYTES ABSOLUTE AUTO 0.59 K/mm3 (0.16-1.47); MONOCYTES PERCENT AUTO 11 % (4-13); Mean Corpuscular HGB 34.3 pg (26.0-34.0); Mean Corpuscular HGB Conc 35.2 g/dL (31.5-36.5); Mean Corpuscular Volume 98 fL (80-100); NEUTROPHILS ABSOLUTE AUTO 3.78 K/mm3 (1.96-9.15); NEUTROPHILS PERCENT AUTO 68 % (41-73); Platelet Count 85 K/mm3 (150-400); RDW Coefficient Variation 14.9 % (11.7-14.2); RDW Standard Deviation 53.5 fL (35.1-46.3); Red Blood Cell Count 3.32 M/mm3 (4.30-5.90); White Blood Cell Count 5.55 K/mm3 (4.00-11.30)
[2021-06-17 08:09] LABS: International Normalized Ratio 1.33; Prothrombin Time Results 14.1 Sec (9.7-11.5)
[2021-06-17] MEDS ORDERED: Roxicodone5 MG PO (12:28)
== END 2021-06-17 12:38 | disposition home or self-care (01) ==
LOC: ER 06:33
PROVIDERS: Emergency Medicine
DX: K91.840 Postprocedural hemorrhage of a digestive system organ or structure following a digestive system procedure (principal); K76.9 Liver disease, unspecified; Z88.5 Allergy status to narcotic agent; Z88.8 Allergy status to other drugs, medicaments and biological substances; Z79.899 Other long term (current) drug therapy; Z98.890 Other specified postprocedural states
CPT/HCPCS: 36415; 85025; 85610; 86850; 86900; 86901; 96374; 96375; 99284-25; A9270; J0171; J3010

== ENCOUNTER 2021-11-10 10:48 | Day surgery (SDC) | payer OTHER ==
[~2021-11-10] VITALS: Ht 185.4 cm; Wt 141.3 kg
[~2021-11-10 10:48] MED LIST changes: +Acerola C500 MG PO; +BENADRYL25 M1 PO; +EPLERENONE50 M1 PO; +ERGO50000 PO; +POTA10T; +RIFA550T2 PO; +Roxicodone5 MG PO; +VITAMIN A PO
--- NOTE | 2021-11-10 13:13 | NUR ---
11/10/21 1313 Dee Dee Burk PT. OBSERVED TO HAVE YELLOWING OF SKIN & EYES. PT. WITH CIRRHOSIS.
== END 2021-11-10 13:03 | disposition home or self-care (01) ==
LOC: ORSCSDS 10:48
PROVIDERS: Internal Medicine Gastroenterology
PROC: 0DBP8ZX Excision of Rectum, Via Natural or Artificial Opening Endoscopic, Diagnostic (ICD-10-PCS; principal; 2021-11-10 12:00)
PROC: 0DBL8ZX Excision of Transverse Colon, Via Natural or Artificial Opening Endoscopic, Diagnostic (ICD-10-PCS; principal; 2021-11-10 12:00)
PROC: 0DJ08ZZ Inspection of Upper Intestinal Tract, Via Natural or Artificial Opening Endoscopic (ICD-10-PCS; principal; 2021-11-10 12:00)
DX: Z12.11 Encounter for screening for malignant neoplasm of colon (principal); Z13.810 Encounter for screening for upper gastrointestinal disorder; Z80.0 Family history of malignant neoplasm of digestive organs; D12.3 Benign neoplasm of transverse colon; D12.8 Benign neoplasm of rectum; K74.60 Unspecified cirrhosis of liver; I85.00 Esophageal varices without bleeding; B19.20 Unspecified viral hepatitis C without hepatic coma; K31.7 Polyp of stomach and duodenum; K57.30 Diverticulosis of large intestine without perforation or abscess without bleeding; K21.9 Gastro-esophageal reflux disease without esophagitis; N18.9 Chronic kidney disease, unspecified; E66.01 Morbid (severe) obesity due to excess calories; Z68.41 Body mass index [BMI] 40.0-44.9, adult; Z79.899 Other long term (current) drug therapy
CPT/HCPCS: 88305; J2405; J2704; J7120

== ENCOUNTER 2025-01-18 07:53 | Day surgery (SDC) | payer OTHER ==
[~2025-01-18] VITALS: Ht 182.9 cm; Wt 138.6 kg
[~2025-01-18 07:53] MED LIST changes: +GABA100; +Lactated Ringer's 1,000 ML IV ONE
[2025-01-18] MEDS ORDERED: MULTI-VITAMIN1 EAC2 (08:21)
[2025-01-18] MEDS ORDERED: Lactated Ringer's 1,000 ML IV ONE (09:32)
[2025-01-18] MEDS ORDERED: propofoL 50 ML IV ONE ×2 (09:48→10:13)
[2025-01-18 10:47] VITALS: BP 119/73
== END 2025-01-18 11:11 | disposition home or self-care (01) ==
LOC: ORSCSDS 07:53
PROVIDERS: Internal Medicine Gastroenterology
PROC: 0DJ08ZZ Inspection of Upper Intestinal Tract, Via Natural or Artificial Opening Endoscopic (ICD-10-PCS; principal; 2025-01-18 09:30)
PROC: 0DBL8ZX Excision of Transverse Colon, Via Natural or Artificial Opening Endoscopic, Diagnostic (ICD-10-PCS; principal; 2025-01-18 09:30)
PROC: 0DBN8ZX Excision of Sigmoid Colon, Via Natural or Artificial Opening Endoscopic, Diagnostic (ICD-10-PCS; principal; 2025-01-18 09:30)
DX: Z12.11 Encounter for screening for malignant neoplasm of colon (principal); Z86.0101 Personal history of adenomatous and serrated colon polyps; Z80.0 Family history of malignant neoplasm of digestive organs; K70.10 Alcoholic hepatitis without ascites; I85.00 Esophageal varices without bleeding; D12.3 Benign neoplasm of transverse colon; K63.5 Polyp of colon; K31.7 Polyp of stomach and duodenum; E66.01 Morbid (severe) obesity due to excess calories; Z68.41 Body mass index [BMI] 40.0-44.9, adult; Z79.899 Other long term (current) drug therapy
CPT/HCPCS: 88305; J2704; J7120